=== PATIENT | female | born 1960 | race Caucasian/White ===

== ENCOUNTER 2020-05-12 14:57 | Inpatient (IN) | payer MEDICAID ==
[~2020-05-12] VITALS: Ht 172.7 cm; Wt 110.3 kg
[2020-05-12] MEDS ORDERED: FURO40TA4 PO (15:39)
[2020-05-12] MEDS ORDERED: LEVO200T PO (15:39)
[2020-05-12] MEDS ORDERED: BUDE10.2 IH (15:39)
[2020-05-12] MEDS ORDERED: HYDR-4196 PO (15:39)
[2020-05-12] MEDS ORDERED: INSU100V31 IJ (15:39)
[2020-05-12] MEDS ORDERED: OMG1KC PO (15:39)
[2020-05-12] MEDS ORDERED: POTA-53 PO (15:39)
[2020-05-12] MEDS ORDERED: DIAZ10TA3 PO (15:39)
[2020-05-12] MEDS ORDERED: ASPI-1238 PO (15:39)
[2020-05-12] MEDS ORDERED: LIDO700A45 TP (15:39)
[2020-05-12] MEDS ORDERED: LEVE500T99 PO (15:39)
[2020-05-12] MEDS ORDERED: LOSA100T57 PO (15:39)
[2020-05-12] MEDS ORDERED: INSU100V6 SQ (15:39)
[2020-05-12] MEDS ORDERED: NALO4SPR NS (15:39)
[2020-05-12] MEDS ORDERED: OMEP40CA27 PO (15:39)
[2020-05-12] MEDS ORDERED: DULA1.5P2 SQ (15:39)
[2020-05-12] MEDS ORDERED: PREG200C PO (15:39)
[2020-05-12] MEDS ORDERED: ATOR40TA70 PO (15:39)
[2020-05-12] MEDS ORDERED: CARI350T PO (15:39)
[2020-05-12] MEDS ORDERED: POLY17PO6 PO (15:39)
[2020-05-12] MEDS ORDERED: IPRA3AMP31 IH (15:39)
[2020-05-12] MEDS ORDERED: MONT10TA26 PO (15:39)
[2020-05-12] MEDS ORDERED: SENN17.24 PO (15:39)
[2020-05-12] MEDS ORDERED: LACT1CAP39 PO (15:39)
[2020-05-12] MEDS ORDERED: CALC1TAB PO (15:39)
[2020-05-12] MEDS ORDERED: ENOX30DI4 SQ (15:39)
[2020-05-12] MEDS ORDERED: DOCU100C37 PO (15:39)
[2020-05-12] MEDS ORDERED: RT-ALBUINH INH (15:39)
--- NOTE | 2020-05-12 15:43 | NUR ---
I ENTERED THE MED REC USING THE DISCHARGE ORDERS FROM [facility]- AFTER MEDICATIONS ARE CONTINUED I WILL SPEAK WITH THE PT AND MAKE ANY CHANGES TO THE MED REC/NOTES IF NEEDED Addendum: 05/25/20 at 1312 by KELLE FLOWERS [facility] I WAS ABLE TO SPEAK WITH THE PT TODAY AND WENT THRU THE EXT MED HISTORY TO COMPLETE THE MED REC I HAVE ALSO PUT A CALL IN TO DR. DASH IN [place] TO CLARIFY HER BP MEDS- PT SAID SHORTLY BEFORE BEING ADMITTED TO [facility] HER BP MEDS HAD BEEN CHANGED AROUND BUT SHE IS NOT SURE WHICH IS THE CURRENT ORDER. AFTER I HEAR FROM ERIC OFFICE I WILL UPDATE THE BP MEDS IF NEEDED *MEDICATIONS THAT HAVE BEEN REMOVED DUE TO PT NOT TAKING PRIOR TO [facility]: DOCUSATE 100MF ENOXAPARIN 30MG CULTURELLE KEPPRA 500MG LIDOCAINE 5% PATCH POTASSIUM 20MEQ SENNA S LANTUS HUMULIN R PT SAID SHE DID NOT USE ANY INHALERS OR BREATHING TREATMENTS PRIOR TO HER HOSPITALIZATION THEREFORE I HAVE REMOVED ALBUTEROL HFA, SYMBICORT AND DUONEB. AT [address] [place] [address] PHARMACY SHE HAD FILLED ANORO 62.5/25MCG ON 04-28-2020 #1 HOWEVER PT SAYS SHE DOES NOT USE IT AND THEREFORE I WILL NOT INCLUDE IT ON THE MED REC MEDICATIONS THAT HAVE BEEN ADDED TO THE MED REC DUE TO PT TAKING PRIOR TO [facility] BUT WERE DISCONTINUED AT DISCHARGE: METFORMIN ER 500MG THE FOLLOWING MEDICATIONS ARE LISTED UNDER THE "STOP MEDICATIONS" BUT PT DOESNT TAKE THEM (I DID NOT ADD THEM TO THE MED REC BUT DID WANT A RECORD SHOWING THEM): XANAX 1MG ESTRACE CREAM FLUOXETINE 40MG (PT HAS FILLED BUPROPION SR 150MG ON 03-31-2020 #30 HOWEVER PT SAID SHE IS NOT TAKING EITHER OF THESE) LORATADINE THE FOLLOWING MEDICATIONS HAVE BEEN ADDED TO THE MED REC DUE TO PT TAKING PRIOR TO [facility] BUT THEY ARE NOT LISTED ON THE DISCHARGE ORDER TO EITHER CONTINUE OR STOP: AMBIEN 5MG DICLOFENAC 75MG FLONASE HITESH 180MG Addendum: 05/27/20 at 1442 by KELLE FLOWERS [employer] I RECEIVED A CALL BACK FROM THE PCP'S OFFICE AND WAS TOLD PRIOR TO HER [facility] HOSPITALIZATION HER MOST CURRENT BLOOD PRESSURE MED WAS AMLODIPINE 10MG
[2020-05-12] MEDS ORDERED: DOCUSATE SODIUM 100 MG (COLACE) CAP PO PRN (16:30)
[2020-05-12] MEDS ORDERED: guaiFENesin/CODEINE (ROBITUSSIN AC) 10ML UDC PO PRN (16:30)
[2020-05-12] MEDS ORDERED: diphenhydrAMINE 25 MG TAB (BENADRYL) PO PRN (16:30)
[2020-05-12] MEDS ORDERED: FLEET ENEMA ADULT 1 EA BTL PR PRN (16:30)
[2020-05-12] MEDS ORDERED: ALPRAZolam 0.25 MG (XANAX) TAB PO PRN (16:30)
[2020-05-12] MEDS ORDERED: CALCIUM CARBONATE 500 MG (TUMS) TAB.CHEW PO PRN (16:30)
[2020-05-12] MEDS ORDERED: LOPERAMIDE 2 MG (IMODIUM) TABLET PO PRN (16:30)
[2020-05-12] MEDS ORDERED: NON-FORMULARY MEDICATION 1 EA EA (Naloxone HCl (Narcan) 1 SPRAY) NS PRN (17:00)
[2020-05-12] MEDS ORDERED: RT-ALBUTEROL/IPRATROPIUM 3 ML (DUONEB) VIAL IH PRN (17:00)
[2020-05-12] MEDS ORDERED: NON-FORMULARY MEDICATION 1 EA EA (Diazepam 10 MG) PO PRN (17:00)
[2020-05-12] MEDS ORDERED: RT-ALBUTEROL SULF 2.5 MG/3 ML PRE-MIX VIAL INH PRN (17:00)
[2020-05-12] MEDS ORDERED: NON-FORMULARY MEDICATION 1 EA EA (Dulaglutide (Trulicity) 1.5 MG) SQ SCH (17:00)
[2020-05-12] MEDS ORDERED: FUROSEMIDE 40 MG (LASIX) TAB PO PRN (17:00)
[2020-05-12] MEDS ORDERED: POTASSIUM CHLORIDE 40 MEQ PO PRN (17:00)
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
[2020-05-12] MEDS ORDERED: KCL 20 MEQ TAB (K-DUR) PO PRN (19:15)
[2020-05-12 19:39] VITALS: BP 101/57
[2020-05-12] MEDS ORDERED: SENNA W/DOCUSATE (SENOKOT S) TABLET PO NR (20:00)
[2020-05-12] MEDS ORDERED: LACTULOSE SYRUP 10GM/15ML (ENULOSE) 30ML UDC PO NR (20:00)
[2020-05-12] MEDS: ONDANSETRON 4 MG (ZOFRAN) ORAL DISSOLVE TAB PO PRN (20:05)
[2020-05-12] MEDS: ENOXAPARIN 30 MG/0.3 ML (LOVENOX) SYR SQ SCH (20:52)
[2020-05-12] MEDS: MELATONIN 3 MG TABLET PO PRN (20:53)
[2020-05-12] MEDS: HYDROcodone/APAP 10 MG/325 MG (LORTAB) TAB PO PRN (20:53)
[2020-05-12] MEDS: PREGABALIN 100 MG (LYRICA) CAPSULE PO SCH (20:54)
[2020-05-12] MEDS: MONTELUKAST 10 MG (SINGULAIR) TAB PO SCH (20:54)
[2020-05-12] MEDS: LACTOBACILLUS ACIDOPHILUS (PROBIOTIC) CAPSULE PO SCH (20:54)
[2020-05-12] MEDS: LEVETIRACETAM 500 MG (KEPPRA) TAB PO SCH (20:54)
[2020-05-12] MEDS: LIDOCAINE PATCH REMOVAL TP SCH (20:55)
[2020-05-12] MEDS ORDERED: NON-FORMULARY MEDICATION 1 EA EA (Budesonide/Formoterol Fumarate (Symbicort 160-4.5 Mcg In IH SCH (21:00)
[2020-05-12] MEDS ORDERED: SENNOSIDES 17.2 MG PO SCH (21:00)
[2020-05-12] MEDS ORDERED: NON-FORMULARY MEDICATION 1 EA EA (Lactobacillus Rhamnosus GG (Culturelle) 1 EACH) PO SCH (21:00)
[2020-05-12] MEDS ORDERED: SENNA W/DOCUSATE (SENOKOT S) TABLET PO SCH (21:00)
[2020-05-12] MEDS ORDERED: NON-FORMULARY MEDICATION 1 EA EA (Pregabalin (Lyrica) 200 MG) PO SCH (21:00)
[2020-05-12] MEDS ORDERED: NON-FORMULARY MEDICATION 1 EA EA (Insulin Glargine,Hum.rec.anlog (Lantus) 20 UNIT) SQ SCH (21:00)
[2020-05-12] MEDS ORDERED: polyethylene glycoL POWDER 17 GM (MIRALAX) PACK PO SCH (21:00)
[2020-05-12] MEDS: SENNOSIDES 8.6 MG (SENOKOT) TAB PO SCH (21:02)
[2020-05-12] MEDS: DOCUSATE SODIUM 100 MG (COLACE) CAP PO SCH (21:02)
[2020-05-12] MEDS: inSUlin ASPART (NovoLOG) 1 UNIT/0.01 ML (CHARGE PER UNIT) SC SCH (21:02)
[2020-05-12 21:44] VITALS: BP 101/57
[2020-05-12] MEDS: ADVAIR HFA 115/21 MCG INHALER 8 GM IH SCH (21:45)
[2020-05-13] MEDS: LEVOTHYROXINE 100 MCG (LEVOTHROID) TAB PO SCH (04:55)
[2020-05-13] MEDS: HYDROcodone/APAP 10 MG/325 MG (LORTAB) TAB PO PRN ×5 (04:55→22:05)
[2020-05-13 05:09] LABS: BASOPHILS % (AUTO) 1 % (0-10); EOSINOPHILS # (AUTO) 0.3 10^3/uL (0.0-0.3); EOSINOPHILS % (AUTO) 4 % (0-10); HEMATOCRIT 27 % (35-52); HEMOGLOBIN 8.2 G/DL (11.5-16.0); LYMPHOCYTES # (AUTO) 2.5 X 10^3 (1.0-4.0); LYMPHOCYTES % (AUTO) 30 % (12-44); MEAN CORPUSCULAR HEMOGLOBIN 29 PG (25-34); MEAN CORPUSCULAR HGB CONC 31 G/DL (32-36); MEAN CORPUSCULAR VOLUME 95 FL (80-99); MONOCYTES # (AUTO) 0.7 X 10^3 (0.0-1.0); MONOCYTES % (AUTO) 9 % (0-12); NEUTROPHILS # (AUTO) 4.5 X 10^3 (1.8-7.8); NEUTROPHILS % (AUTO) 56 % (42-75); PLATELET COUNT 191 10^3/uL (130-400); WHITE BLOOD COUNT 8.1 10^3/uL (4.3-11.0)
[2020-05-13 05:32] LABS: ALANINE AMINOTRANSFERASE 42 U/L (0-55); ALBUMIN 2.9 GM/DL (3.2-4.5); ALKALINE PHOSPHATASE 91 U/L (40-136); BILIRUBIN,TOTAL 1.1 MG/DL (0.1-1.0); BUN/CREATININE RATIO 16; CALCIUM 8.7 MG/DL (8.5-10.1); CARBON DIOXIDE 32 MMOL/L (21-32); CHLORIDE 100 MMOL/L (98-107); CREATININE SERUM 0.79 MG/DL (0.60-1.30); GFR ESTIMATED > 60; GLUCOSE 156 MG/DL (70-105); SODIUM 139 MMOL/L (135-145); TOTAL PROTEIN 5.7 GM/DL (6.4-8.2)
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
[2020-05-13 06:20] VITALS: BP 101/55
[2020-05-13] MEDS: ADVAIR HFA 115/21 MCG INHALER 8 GM IH SCH ×2 (07:22→22:45)
[2020-05-13] MEDS: inSUlin ASPART (NovoLOG) 1 UNIT/0.01 ML (CHARGE PER UNIT) SC SCH ×4 (07:24→22:16)
[2020-05-13 08:00] VITALS: BP 113/54
[2020-05-13] MEDS: OMEGA 3 (FISH OIL) 1000 MG CAP PO SCH (08:11)
[2020-05-13] MEDS: LEVETIRACETAM 500 MG (KEPPRA) TAB PO SCH ×2 (08:12→22:04)
[2020-05-13] MEDS: PANTOPRAZOLE 40 MG (PROTONIX) TAB PO SCH (08:12)
[2020-05-13] MEDS: polyethylene glycoL POWDER 17 GM (MIRALAX) PACK PO SCH (08:12)
[2020-05-13] MEDS: LACTOBACILLUS ACIDOPHILUS (PROBIOTIC) CAPSULE PO SCH ×2 (08:12→22:04)
[2020-05-13] MEDS: ENOXAPARIN 30 MG/0.3 ML (LOVENOX) SYR SQ SCH ×2 (08:12→22:04)
[2020-05-13] MEDS: LOSARTAN 100 MG (COZAAR) TABLET PO SCH (08:13)
[2020-05-13] MEDS: CALCIUM CARB + VIT D 600 MG (CALCARB + D) TAB PO SCH (08:13)
[2020-05-13] MEDS: ASPIRIN E.C. 81 MG (ECOTRIN) TAB PO SCH (08:13)
[2020-05-13] MEDS: LIDOCAINE 4% (SALONPAS) PATCH TP SCH (08:14)
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
[2020-05-13] MEDS: PREGABALIN 100 MG (LYRICA) CAPSULE PO SCH ×2 (08:59→22:04)
[2020-05-13] MEDS: DOCUSATE SODIUM 100 MG (COLACE) CAP PO SCH ×2 (08:59→23:21)
[2020-05-13] MEDS ORDERED: NON-FORMULARY MEDICATION 1 EA EA (Omeprazole 40 MG) PO SCH (09:00)
[2020-05-13] MEDS ORDERED: NON-FORMULARY MEDICATION 1 EA EA (Levothyroxine Sodium (Synthroid) 200 MCG) PO SCH (09:00)
[2020-05-13] MEDS ORDERED: NON-FORMULARY MEDICATION 1 EA EA (Calcium Carbonate/Vitamin D3 (Caltrate 600 + D Tablet) 1 PO SCH (09:00)
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
[2020-05-13] MEDS: LACTULOSE SYRUP 10GM/15ML (ENULOSE) 30ML UDC PO PRN (10:26)
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
[2020-05-13] MEDS: ONDANSETRON 4 MG (ZOFRAN) ORAL DISSOLVE TAB PO PRN ×2 (14:38→20:49)
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
--- NOTE | 2020-05-13 15:19 | Physical Therapy Daily Note ---
PT Daily Note-Current Subjective Pt presents supine in bed. Pt agrees to PT. Pt is fearful of pain with movement, but ensures she is going to get up anyway because she understands it will help. Pt reports feeling nauseous, nurse gives nausea pain with tx. Appearance After PT tx pt is returned to bed. Pt has access to call button and tray, all needs have been met, and pt's daughter is in the room. Mental Status Patient Orientation: Normal For Age Attachments: Oxygen Transfers SCALE: Activities may be completed with or without assistive devices. 2-Qqulnrzadz-ctcliso completes the activity by him/herself with no assistance from a helper. 5-Set-up or Clean-up Assistance-helper sets up or cleans up; patient completes activity. [place] assists only prior to or following the activity. 4-Supervision or Touching Assistance-helper provides verbal cues and/or touching/steadying and/or contact guard assistance as patient completes activity. Assistance may be provided throughout the activity or intermittently. 3-Partial/Moderate Assistance-helper does LESS THAN HALF the effort. [place] lifts, holds or supports trunk or limbs, but provides less than half the effort. 2-Substantial/Maximal Assistance-helper does MORE THAN HALF the effort. [place] lifts or holds trunk or limbs and provides more than half the effort. 1-Bkpozmbhz-oxclod does ALL the effort. Patient does none of the effort to complete the activity. Or, the assistance of 2 or more helpers is required for the patient to complete the activity. If activity was not attempted, code reason: 7-Patient Refused. 9-Not Applicable-not attempted and the patient did not perform the activity before the current illness, exacerbation or injury. 10-Not Attempted due to Environmental Limitations-(lack of equipment, weather restraints, etc.). 88-Not Attempted due to Medical Conditions or Safety Concerns. Sit to Lying (QC): 3 Lying to Sitting/Side of Bed(Q: 3 Sit to Stand (QC): 3 Chair/Xvf-pq-Ddivs Xfer(QC): 3 Toilet Transfer (QC): 3 Weight Bearing Right Lower Extremity: Right Non Weight Bearing Wheelchair Training Does the Pt Use a Wheelchair?: Yes Wheel 50 ft with 2 turns (QC): 4 100'x2 R foot rest for NWB precautions; Instructed to only use digits 1-3 to push on L hand to follow precautions. Pt required repetitive instructions on how to turn in wheelchair Exercises Standing: Unilateral stance (Practiced standing in parallel bars following R NWB precautions for 2-3min) Treatments Transfers, w/c mobility, standing Assessment Current Status: Fair Progress Pt able to pivot-transfer with mod-assist to bedside commode and to wheelchair. Pt is able to hold standing position while following R NWB precautions but requires UE support and therefore was not able to don/doff briefs. PT Short Term Goals Short Term Goals Time Frame: May 20, 2020 Roll Left & Right: 3 Sit to lyin Lying to sitting on side of be: 3 Sit to stand: 3 Chair/erm-ob-jikmq transfer: 3 PT Orchid Transplanter Goals Orchid Transplanter Goals PT Orchid Transplanter Goals Time Frame: Jun 03, 2020 Roll Left & Right (QC): 4 Sit to Lying (QC): 4 Lying-Sitting on Side/Bed(QC): 4 Sit to Stand (QC): 4 Chair/Iez-an-Otjlw Xfer(QC): 4 Toilet Transfer (QC): 4 Car Transfer (QC): 3 Does the Patient Walk: No and Walking Goal IS indicated Walk 10 feet (QC): 3 Walk 50ft with 2 Turns (QC): 3 Walk 150 ft (QC): 88 Walking 10ft on Uneven Surface: 3 1 Step (curb) (QC): 3 4 Steps (QC): 88 12 Steps (QC): 88 Picking up an Object (QC): 88 Wheel 50 feet with 2 turns (QC: 6 Wheel 150 feet: 6 PT Plan Problem List Problem List: Activity Tolerance, Functional Strength, Safety, Balance, Gait, Transfer, Bed Mobility, ROM Treatment/Plan Treatment Plan: Continue Plan of Care Treatment Plan: Bed Mobility, Education, Functional Activity Jameel, Functional Strength, Group Therapy, Gait, Safety, Therapeutic Exercise, Transfers Treatment Duration: Jun 03, 2020 Frequency: Modified Program (IRF) (24/03) Estimated Hrs Per Day: 1.5 hours per day Patient and/or Family Agrees t: Yes Safety Risks/Education Patient Education: Transfer Techniques, Reviewed Precautions, Correct Positioning, W/C Management, Safety Issues Teaching Recipient: Patient Teaching Methods: Demonstration, Discussion Response to Teaching: Reinforcement Needed Time/GCodes Time In: 1400 Time Out: 1500 Total Billed Treatment Time: 60 Total Billed Treatment 1 visit FA 60ARYA KAN PT May 13, 2020 15:19
[2020-05-13 16:00] VITALS: BP 110/53
[2020-05-13] MEDS: BISACODYL 10 MG SUPP (DULCOLAX) PR PRN (16:55)
[2020-05-13] MEDS: MONTELUKAST 10 MG (SINGULAIR) TAB PO SCH (22:05)
[2020-05-13] MEDS: MELATONIN 3 MG TABLET PO PRN (22:05)
[2020-05-13] MEDS: LIDOCAINE PATCH REMOVAL TP SCH (22:06)
[2020-05-13] MEDS: SENNOSIDES 8.6 MG (SENOKOT) TAB PO SCH (23:21)
[2020-05-14] MEDS: HYDROcodone/APAP 10 MG/325 MG (LORTAB) TAB PO PRN ×5 (05:29→22:38)
[2020-05-14] MEDS: LEVOTHYROXINE 100 MCG (LEVOTHROID) TAB PO SCH (05:29)
[2020-05-14] MEDS: inSUlin ASPART (NovoLOG) 1 UNIT/0.01 ML (CHARGE PER UNIT) SC SCH ×4 (06:37→20:31)
[2020-05-14 06:41] VITALS: BP 133/61
[2020-05-14] MEDS: ADVAIR HFA 115/21 MCG INHALER 8 GM IH SCH ×2 (06:45→19:17)
[2020-05-14] MEDS: CALCIUM CARB + VIT D 600 MG (CALCARB + D) TAB PO SCH (08:21)
[2020-05-14] MEDS: LEVETIRACETAM 500 MG (KEPPRA) TAB PO SCH ×2 (08:21→20:25)
[2020-05-14] MEDS: ASPIRIN E.C. 81 MG (ECOTRIN) TAB PO SCH (08:21)
[2020-05-14] MEDS: PREGABALIN 100 MG (LYRICA) CAPSULE PO SCH ×2 (08:21→20:26)
[2020-05-14] MEDS: PANTOPRAZOLE 40 MG (PROTONIX) TAB PO SCH (08:21)
[2020-05-14] MEDS: LACTOBACILLUS ACIDOPHILUS (PROBIOTIC) CAPSULE PO SCH ×2 (08:21→20:25)
[2020-05-14] MEDS: OMEGA 3 (FISH OIL) 1000 MG CAP PO SCH (08:21)
[2020-05-14] MEDS: DOCUSATE SODIUM 100 MG (COLACE) CAP PO SCH ×2 (08:22→20:25)
[2020-05-14] MEDS: LOSARTAN 100 MG (COZAAR) TABLET PO SCH (08:22)
[2020-05-14] MEDS: LIDOCAINE 4% (SALONPAS) PATCH TP SCH (08:22)
[2020-05-14] MEDS: polyethylene glycoL POWDER 17 GM (MIRALAX) PACK PO SCH (08:22)
[2020-05-14] MEDS: ENOXAPARIN 30 MG/0.3 ML (LOVENOX) SYR SQ SCH ×2 (08:22→20:25)
[2020-05-14 08:36] VITALS: BP 109/53
[2020-05-14] MEDS: ONDANSETRON 4 MG (ZOFRAN) ORAL DISSOLVE TAB PO PRN (09:14)
--- NOTE | 2020-05-14 09:24 | Occupational Ther Daily Note ---
OT Current Status-Daily Note Subjective Pt reports 8-9/10 pain in abdomen/chest area, and a burning sensation in R hip. Pt agreeable to therapy. Pain Numeric Pain Scale: 9 Location Body Site: Chest Pain Description: Burning (at hip) ADL-Treatment Therapy Code Descriptions/Definitions Functional [place] Measure: 0=Not Assessed/NA 4=Minimal Assistance 1=Total Assistance 5=Supervision or Setup 2=Maximal Assistance 6=Modified [place] 3=Moderate Assistance 7=Complete IndependenceSCALE: Activities may be completed with or without assistive devices. 0-Cecvylgmkr-fibsore completes the activity by him/herself with no assistance from a helper. 5-Set-up or Clean-up Assistance-helper sets up or cleans up; patient completes activity. [place] assists only prior to or following the activity. 4-Supervision or Touching Assistance-helper provides verbal cues and/or touching/steadying and/or contact guard assistance as patient completes activity. Assistance may be provided throughout the activity or intermittently. 3-Partial/Moderate Assistance-helper does LESS THAN HALF the effort. [place] lifts, holds or supports trunk or limbs, but provides less than half the effort. 2-Substantial/Maximal Assistance-helper does MORE THAN HALF the effort. [place] lifts or holds trunk or limbs and provides more than half the effort. 6-Saocrlryy-pzzxpi does ALL the effort. Patient does none of the effort to complete the activity. Or, the assistance of 2 or more helpers is required for the patient to complete the activity. If activity was not attempted, code reason: 7-Patient Refused. 9-Not Applicable-not attempted and the patient did not perform the activity before the current illness, exacerbation or injury. 10-Not Attempted due to Environmental Limitations-(lack of equipment, weather restraints, etc.). 88-Not Attempted due to Medical Conditions or Safety Concerns. Lower Body Dressing (QC): 1 (Total assist with task, pt required assistance threading RLE, pt able to thread LLE as OT held pants open, then max A for rolling side to side to manage pants up) Toileting Hygiene (QC): 1 (total assist, pt required assist x2 managing pants up/down and hygiene.) Other Treatment OT/PT cotreat due to poor patient mobility, strength, endurance, balance, the need to coordinate UE and LE during activity, pain. OT focused on UE placement, ADLs, cues for sequencing and safety, and assistance with balance while PT focused on LE placement, overall gross movements, bed mobility, standing trials. Pt laying in bed, donned pants at bed level. Pt attemted to bridge through LLE but unable to lift buttocks from bed. Pt then rolled side to side with max A to manage pants over hips. Pt then educated on slide board, transferring from bed to w/c towards the right side. Pt had difficulty putting weight through LLE only, stating she wants to use the right leg instead. Pt required mod-max A with SB transfer. Pt then taken to therapy gym, standing at parallel bars x2 trials, ~3 mins each trial with a rest break between. Pt required mod cues in order to use RUE to pull and to only put weight into LLE for standing. Pt then returned to her room. Pt requested to use the toilet. OT/PT assisted pt with standing at platform walker, once pt steady, w/c swapped for BSC, and assistance with managing clothing. Pt completed toileting, then stood at platform walker as OT managed pants up with PT assisting for balance. Pt states she is unable to use FWW to hop towards the bed, BSC swapped for w/c, pt sat at w/c then used slide board to transfer back to bed towards R side, max A. Pt transferred sit to supine, with assistance BLEs. Pt reports some nausea, pt provided basin and nurse notified. Post OT/PT cotreat, pt laying in bed, call light in reach and all needs met. Education OT Patient Education: Correct positioning, Energy conservation, Modified ADL techniques, Progress toward Goal/Update tx plan, Purpose of tx/functional activities, Reviewed precautions, Safety issues, Transfer techniques Teaching Recipient: Patient Teaching Methods: Discussion Response to Teaching: Verbalize Understanding, Reinforcement Needed OT Short Term Goals Short Term Goals Time Frame: May 24, 2020 Shower/bathe self: 3 Lower body dressin Putting on/taking off footwear: 3 OT News Librarian Goals Group Home Goals Time Frame: Jun 03, 2020 Eating (QC): 6 Oral Hygiene (QC): 6 Toileting Hygiene (QC): 6 Shower/Bathe Self (QC): 6 Upper Body Dressing (QC): 6 Lower Body Dressing (QC): 6 On/Off Footwear (QC): 6 Additional Goals: 1-Demonstrate ADL Tasks, 2-Verbalize Understanding, 3- ImproveStrength/Jameel 1=Demonstrate adherence to instructed precautions during ADL tasks. 2=Patient will verbalize/demonstrate understanding of assistive devices/modifications for ADL. 3=Patient will improve strength/tolerance for activity to enable patient to perform ADL's. OT Education/Plan Problem List/Assessment Assessment: Decreased Activ Tolerance, Decreased UE Strength, Impaired Bed Mobi lity, Impaired Funct Balance, Impaired I ADL's, Impaired Self-Care Skills Discharge Recommendations Plan/Recommendations: Continue POC Treatment Plan/Plan of Care Patient would benefit from OT for education, treatment and training to promote independence in ADL's, mobility, safety and/or upper extremity function for ADL's. Plan of Care: ADL Retraining, Functional Mobility, Group Exercise/Act as Ind, UE Funct Exercise/Act, W/C Management Training Treatment Duration: Jun 03, 2020 Frequency: Modified Program (IRF) (24/03) Estimated Hrs Per Day: 1.5 hours per day Rehab Potential: Fair Time/GCodes Start Time: 08:15 Stop Time: 09:15 Total Time Billed (hr/min): 60 Billed Treatment Time 1, FA 4 JUAN JOSE BREWSTER OT May 14, 2020 09:23
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
--- NOTE | 2020-05-14 12:57 | Physical Therapy Daily Note ---
PT Daily Note-Current Subjective Pt agreeable. Pt c/o pain throughout trunk, (R) hip "burning", (L) hand and (R) foot. Pain rated 8-9/10. Mental Status Patient Orientation: Person, Place, Situation Transfers SCALE: Activities may be completed with or without assistive devices. 2-Ujbvraldcm-bhdtpgc completes the activity by him/herself with no assistance from a helper. 5-Set-up or Clean-up Assistance-helper sets up or cleans up; patient completes activity. [place] assists only prior to or following the activity. 4-Supervision or Touching Assistance-helper provides verbal cues and/or touching/steadying and/or contact guard assistance as patient completes activity. Assistance may be provided throughout the activity or intermittently. 3-Partial/Moderate Assistance-helper does LESS THAN HALF the effort. [place] lifts, holds or supports trunk or limbs, but provides less than half the effort. 2-Substantial/Maximal Assistance-helper does MORE THAN HALF the effort. [place] lifts or holds trunk or limbs and provides more than half the effort. 6-Ibdkdjcra-wfhilb does ALL the effort. Patient does none of the effort to complete the activity. Or, the assistance of 2 or more helpers is required for the patient to complete the activity. If activity was not attempted, code reason: 7-Patient Refused. 9-Not Applicable-not attempted and the patient did not perform the activity before the current illness, exacerbation or injury. 10-Not Attempted due to Environmental Limitations-(lack of equipment, weather restraints, etc.). 88-Not Attempted due to Medical Conditions or Safety Concerns. Weight Bearing Right Lower Extremity: Right Non Weight Bearing Treatments OT/PT cotreat due to poor patient mobility, strength, endurance, balance, the n eed to coordinate UE and LE during activity, pain. OT focused on UE placement, ADLs, cues for sequencing and safety, and assistance with balance while PT focused on LE placement, overall gross movements, bed mobility, standing trials. Pt laying in bed, donned pants at bed level. Pt attemted to bridge through LLE but unable to lift buttocks from bed. Pt then rolled side to side with max A to manage pants over hips. Pt then educated on slide board, transferring from bed to w/c towards the right side. Pt had difficulty putting weight through LLE only, stating she wants to use the right leg instead. Pt required mod-max A with SB transfer. O2 per nasal canula 2L/min. Pt then taken to therapy gym Via w/c, standing at parallel bars x2 trials, ~3 mins each trial with a rest break between. Pt required mod cues in order to use RUE to pull and to only put weight into LLE for standing. Pt then returned to her room. Pt requested to use the toilet. OT/PT assisted pt with standing at platform walker, once pt steady, w/c swapped for BSC, and assistance with managing clothing. Pt completed toileting, then stood at platform walker as OT managed pants up with PT assisting for balance. Pt states she is unable to use FWW to hop towards the bed, BSC swapped for w/c, pt sat at w/c then used slide board to transfer back to bed towards R side, max A. Pt transferred sit to supine, with assistance BLEs. Pt reports some nausea, pt provided basin and nurse notified. Post OT/PT cotreat, pt laying in bed, call light in reach and all needs met. Assessment Current Status: Fair Progress Pt is dependent for bed mobility, transfers and w/c mobility. Pt was able to maintain NWB (R) LE with mod-max vc's. Pt was able to perform approximately 30% of the slideboard transfer. Pt participation limited by pain and weakness. Pt would benefit from continued slide board training and strength training to improve functional mobility. PT Short Term Goals Short Term Goals Time Frame: May 20, 2020 Roll Left & Right: 3 Sit to lyin Lying to sitting on side of be: 3 Sit to stand: 3 Chair/kgt-ve-mrjfq transfer: 3 PT Soaker Soda Worker Goals Residential Goals PT Soaker Soda Worker Goals Time Frame: Jun 03, 2020 Roll Left & Right (QC): 4 Sit to Lying (QC): 4 Lying-Sitting on Side/Bed(QC): 4 Sit to Stand (QC): 4 Chair/Bzz-ru-Hwihg Xfer(QC): 4 Toilet Transfer (QC): 4 Car Transfer (QC): 3 Does the Patient Walk: No and Walking Goal IS indicated Walk 10 feet (QC): 3 Walk 50ft with 2 Turns (QC): 3 Walk 150 ft (QC): 88 Walking 10ft on Uneven Surface: 3 1 Step (curb) (QC): 3 4 Steps (QC): 88 12 Steps (QC): 88 Picking up an Object (QC): 88 Wheel 50 feet with 2 turns (QC: 6 Wheel 150 feet: 6 PT Plan Treatment/Plan Treatment Plan: Continue Plan of Care Treatment Plan: Bed Mobility, Education, Functional Activity Jameel, Functional Strength, Group Therapy, Gait, Safety, Therapeutic Exercise, Transfers Treatment Duration: Jun 03, 2020 Frequency: Modified Program (IRF) (24/03) Estimated Hrs Per Day: 1.5 hours per day Patient and/or Family Agrees t: Yes Time/GCodes Time In: 815 Time Out: 915 Total Billed Treatment Time: 60 Total Billed Treatment Co-treat with OT x 60 min, 1 FA x 45', Gait x 15' JUSTINE ZHU CPTAruna May 14, 2020 12:56
--- NOTE | 2020-05-14 14:11 | Speech Therapy Daily Note ---
Speech Daily Progress Note Subjective Date Seen by Provider: May 14, 2020 Time Seen by Provider: 00:30 Patient was resting in her bed. She states she slept pretty well last night. Objective Patient completed a series of questions related to her daily routine and needs upon her return home. Assessment Assessment Current Status: Good Progress Treatment Plan Continue Plan of Care Speech Short Term Goals Short Term Goals Short Term Goals 1) Patient will complete memory tasks related to her daily needs at 90% or greater with minimal cues. 2) Patient will complete problem solving tasks related to her daily needs at 90% or greater with minimal cues. 3) Patient will complete safety awareness tasks related to her daily needs at 90% or greater with minimal cues. Speech Peer Support Specialist Goals Alf Goals Patient will improve her cognitive functional level for meeting her daily needs with minimal assist. Speech-Plan Patient/Family Goals Patient/Family Goals: Patient plans on returning home upon discharge with support help. Treatment Plan Speech Therapy Treatment Plan: Continue Plan of Care Treatment Duration: May 28, 2020 Frequency: 4 times per week (Patient will receive skilled ST 4-5x per week) Estimated Hrs Per Day: .5 hour per day Rehab Potential: Fair Barriers to Learning: Patient's recent medical status Pt/Family Agrees to Plan: Yes Safety Risks/Education Teaching Recipient: Patient Teaching Methods: Demonstration, Discussion Response to Teaching: Verbalize Understanding, Return Demonstration Education Topics Provided: Continued safety within her room and communication of wants/needs Time Speech Therapy Time In: 09:30 Speech Therapy Time Out: 10:00 Total Billed Time: 30 Billed Treatment Time 1, SVETLANA Luis May 14, 2020 14:10
--- NOTE | 2020-05-14 15:08 | Therapy Group Daily Note ---
Therapy Daily Group Note Patient Education Topic Fall Prevention, Home Safety, Exercises Exercises LE Seated Exercise, UE Exercise Session Ratio (pt:therapist): 3:1 Goal of Session: Home Safety Strategies, UE/LE Strengthing Goal Met for this Session: Yes Pt Benefit of Group: Contributions to Others, F/U Use of Strategies @Home, Increased Functional Strength, Improved Cognition, Recognition of Peers, Socialization Other/Notes Pt was transported via w/c to OT group. Group consisted of introductions (name, place living, fall activity), socialization, seated UE/LE exercises, educational topics on exercising throughout the year and hydration. Pt introduced self appropriately and actively listened to peers. Pt contributed to peer conversations appropriately. Demonstrated understanding of educational topics by answering questions while participating in group activity and giving own personal strategies. After session, pt lying in bed with call light/phone in reach. All needs met in room. Start Time: 13:00 Stop Time: 14:20 Total Billed Treatment Time: 80 Total Billed Treatment 1, GRP ZACHARY BUTCHER OTR May 14, 2020 15:08
[2020-05-14 16:00] VITALS: BP 102/53
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
--- NOTE | 2020-05-14 19:10 | NUR ---
bedside report received from RODNEY CHAIDEZ, assume care of pt
[2020-05-14] MEDS: MONTELUKAST 10 MG (SINGULAIR) TAB PO SCH (20:26)
[2020-05-14] MEDS: CARISOPRODOL 350 MG (SOMA) TAB PO PRN (20:27)
--- NOTE | 2020-05-14 20:27 | NUR ---
pt took Colace refused Senokot, c/o muscle spasms, soma 350mg given
[2020-05-14] MEDS: SENNOSIDES 8.6 MG (SENOKOT) TAB PO SCH (20:49)
[2020-05-14] MEDS: LIDOCAINE PATCH REMOVAL TP SCH (20:50)
--- NOTE | 2020-05-14 21:15 | NUR ---
states that pill helped rated pain at 6/10 on numeric scale
--- NOTE | 2020-05-14 22:38 | NUR ---
c/o pain all over pain level 8/10 on numeric scale, Lortab 10 1 tab given
--- NOTE | 2020-05-14 23:20 | NUR ---
resting quietly in bed pain level 0/10 on CNPI SCALE
[2020-05-15] MEDS: HYDROcodone/APAP 10 MG/325 MG (LORTAB) TAB PO PRN ×2 (02:25→06:44)
--- NOTE | 2020-05-15 02:25 | NUR ---
c/o generalized discomfort, pain level 8/10 on numeric scale, Lortab 10 1 tab given
--- NOTE | 2020-05-15 03:15 | NUR ---
resting quietly in bed, pain level 0/10 on CNPI SCALE
[2020-05-15 05:05] VITALS: BP 121/59
[2020-05-15] MEDS: LEVOTHYROXINE 100 MCG (LEVOTHROID) TAB PO SCH (06:37)
[2020-05-15] MEDS: inSUlin ASPART (NovoLOG) 1 UNIT/0.01 ML (CHARGE PER UNIT) SC SCH ×4 (06:41→20:32)
--- NOTE | 2020-05-15 06:44 | NUR ---
c/o generalized discomfort, pain level 8/10 on numeric scale, Lortab 10 1 tab given
[2020-05-15] MEDS: ADVAIR HFA 115/21 MCG INHALER 8 GM IH SCH ×2 (07:39→20:21)
[2020-05-15 08:39] VITALS: BP 102/56
[2020-05-15] MEDS: CALCIUM CARB + VIT D 600 MG (CALCARB + D) TAB PO SCH (08:44)
[2020-05-15] MEDS: ASPIRIN E.C. 81 MG (ECOTRIN) TAB PO SCH (08:44)
[2020-05-15] MEDS: CARISOPRODOL 350 MG (SOMA) TAB PO PRN ×3 (08:44→23:07)
[2020-05-15] MEDS: PREGABALIN 100 MG (LYRICA) CAPSULE PO SCH ×2 (08:44→20:12)
[2020-05-15] MEDS: LIDOCAINE 4% (SALONPAS) PATCH TP SCH (08:44)
[2020-05-15] MEDS: ENOXAPARIN 30 MG/0.3 ML (LOVENOX) SYR SQ SCH ×2 (08:44→20:13)
[2020-05-15] MEDS: OMEGA 3 (FISH OIL) 1000 MG CAP PO SCH (08:45)
[2020-05-15] MEDS: polyethylene glycoL POWDER 17 GM (MIRALAX) PACK PO SCH (08:45)
[2020-05-15] MEDS: LEVETIRACETAM 500 MG (KEPPRA) TAB PO SCH ×2 (08:45→20:12)
[2020-05-15] MEDS: LOSARTAN 100 MG (COZAAR) TABLET PO SCH (08:45)
[2020-05-15] MEDS: LACTOBACILLUS ACIDOPHILUS (PROBIOTIC) CAPSULE PO SCH ×2 (08:45→20:12)
[2020-05-15] MEDS: PANTOPRAZOLE 40 MG (PROTONIX) TAB PO SCH (08:45)
[2020-05-15] MEDS: DOCUSATE SODIUM 100 MG (COLACE) CAP PO SCH ×2 (08:45→20:13)
--- NOTE | 2020-05-15 10:51 | Physical Therapy Daily Note ---
PT Daily Note-Current Subjective Pt rates pain 8/10. Nursing notified. Pt reports she is sore throughout trunk and (R) hip "burning" pain. Pt reports she sat herself up at 2 am on the EOB. Pt noted decreased pain with PROM of the hip and light manual traction. Mental Status Patient Orientation: Person, Place, Situation Transfers SCALE: Activities may be completed with or without assistive devices. 3-Uujgxwfzwy-dojkwli completes the activity by him/herself with no assistance from a helper. 5-Set-up or Clean-up Assistance-helper sets up or cleans up; patient completes activity. [place] assists only prior to or following the activity. 4-Supervision or Touching Assistance-helper provides verbal cues and/or touching/steadying and/or contact guard assistance as patient completes ac tivity. Assistance may be provided throughout the activity or intermittently. 3-Partial/Moderate Assistance-helper does LESS THAN HALF the effort. [place] lifts, holds or supports trunk or limbs, but provides less than half the effort. 2-Substantial/Maximal Assistance-helper does MORE THAN HALF the effort. [place] lifts or holds trunk or limbs and provides more than half the effort. 1-Lbsxqlauh-xryyky does ALL the effort. Patient does none of the effort to complete the activity. Or, the assistance of 2 or more helpers is required for the patient to complete the activity. If activity was not attempted, code reason: 7-Patient Refused. 9-Not Applicable-not attempted and the patient did not perform the activity before the current illness, exacerbation or injury. 10-Not Attempted due to Environmental Limitations-(lack of equipment, weather restraints, etc.). 88-Not Attempted due to Medical Conditions or Safety Concerns. Weight Bearing Right Lower Extremity: Right Non Weight Bearing Treatments OT/PT cotreat due to poor patient mobility, strength, endurance, balance, the need to coordinate UE and LE during activity, pain. OT focused on UE placement, ADLs, cues for sequencing and safety, and assistance with balance while PT focused (R) hip PROM, light manual traction in hooklying (R) LE, LE placement, overall gross movements, bed mobility, standing trials. Pt practiced and educated on slide board, transferring from bed to w/c towards the right side. Pt had difficulty putting weight through LLE only, required vc's to avoid weight (R) LE. Pt required mod-max A with SB transfer. O2 per nasal canula 2L/min. Pt in w/c with MIKEL working on ADLs. Pt requested to go out to common area but then requested to return to room. OT/PT assisted pt with standing at platform walker, once pt steady, w/c swapped for BSC, and assistance with managing clothing. Post OT/PT cotreat, pt in w/c with all needs met, call light in reach. Assessment Current Status: Fair Progress Pt showed improved ability to transfer semi supine to EOB. Pt particpation limited by pain and decreased coordination between UE and (L) LE. Pt requires mod A of 2 persons to SB transfer. Pt resting with call light, O2 insitu and all needs met. PT Short Term Goals Short Term Goals Time Frame: May 20, 2020 Roll Left & Right: 3 Sit to lyin Lying to sitting on side of be: 3 Sit to stand: 3 Chair/dxm-hm-dccvi transfer: 3 PT Detention Goals [employer] Teacher Goals PT [employer] Teacher Goals Time Frame: Jun 03, 2020 Roll Left & Right (QC): 4 Sit to Lying (QC): 4 Lying-Sitting on Side/Bed(QC): 4 Sit to Stand (QC): 4 Chair/Dwg-tj-Ghiwr Xfer(QC): 4 Toilet Transfer (QC): 4 Car Transfer (QC): 3 Does the Patient Walk: No and Walking Goal IS indicated Walk 10 feet (QC): 3 Walk 50ft with 2 Turns (QC): 3 Walk 150 ft (QC): 88 Walking 10ft on Uneven Surface: 3 1 Step (curb) (QC): 3 4 Steps (QC): 88 12 Steps (QC): 88 Picking up an Object (QC): 88 Wheel 50 feet with 2 turns (QC: 6 Wheel 150 feet: 6 PT Plan Treatment/Plan Treatment Plan: Continue Plan of Care Treatment Plan: Bed Mobility, Education, Functional Activity Jameel, Functional Strength, Group Therapy, Gait, Safety, Therapeutic Exercise, Transfers Treatment Duration: Jun 03, 2020 Frequency: Modified Program (IRF) (24/03) Estimated Hrs Per Day: 1.5 hours per day Patient and/or Family Agrees t: Yes Time/GCodes Time In: 900 Time Out: 942 Total Billed Treatment Time: 42 Total Billed Treatment 1, Co-treat with OT 42min, ther ex 12', FA 30' JUSTINE ZHU May 15, 2020 10:51
--- NOTE | 2020-05-15 11:12 | Occupational Ther Daily Note ---
OT Current Status-Daily Note Subjective Pt alert, lying in bed. Pt agrees to therapy. C/o R hip pain, 04/19, PT completed stretching and ROM which pt stated helped decrease pain. Pain Numeric Pain Scale: 8 Location: Right Location Body Site: Hip Pain Description: Burning Mental Status/Objective Patient Orientation: Person, Place, Time, Situation ADL-Treatment Therapy Code Descriptions/Definitions Functional [place] Measure: 0=Not Assessed/NA 4=Minimal Assistance 1=Total Assistance 5=Supervision or Setup 2=Maximal Assistance 6=Modified [place] 3=Moderate Assistance 7=Complete IndependenceSCALE: Activities may be completed with or without assistive devices. 1-Czyrzhfbug-tddosrg completes the activity by him/herself with no assistance from a helper. 5-Set-up or Clean-up Assistance-helper sets up or cleans up; patient completes activity. [place] assists only prior to or following the activity. 4-Supervision or Touching Assistance-helper provides verbal cues and/or touching/steadying and/or contact guard assistance as patient completes activity. Assistance may be provided throughout the activity or intermittently. 3-Partial/Moderate Assistance-helper does LESS THAN HALF the effort. [place] lifts, holds or supports trunk or limbs, but provides less than half the effort. 2-Substantial/Maximal Assistance-helper does MORE THAN HALF the effort. [place] lifts or holds trunk or limbs and provides more than half the effort. 3-Bjxmpjcqt-ccruyt does ALL the effort. Patient does none of the effort to complete the activity. Or, the assistance of 2 or more helpers is required for the patient to complete the activity. If activity was not attempted, code reason: 7-Patient Refused. 9-Not Applicable-not attempted and the patient did not perform the activity before the current illness, exacerbation or injury. 10-Not Attempted due to Environmental Limitations-(lack of equipment, weather restraints, etc.). 88-Not Attempted due to Medical Conditions or Safety Concerns. Other Treatment OT/PT cotreat due to poor patient mobility, strength, endurance, balance, the need to coordinate UE and LE during activity, pain. OT focused on UE placement, ADLs, cues for sequencing and safety, and assistance with balance while PT focused on LE placement, overall gross movements, bed mobility, standing trials. Pt was able to demonstrate ability to roll toward R side and sit on EOB, initially bed is flat while pt is rolling then pt lifted HOB to come to sitting. Pt then required assist x2 for sliding board placement and using sliding board to transfer into w/c. Pt unable to adjust self in w/c after slide board transfer, max A x2 to stand then sit correctly positioned in w/c. Pt required assist to complete grooming sitting in w/c. After session, pt sitting in w/c with call light/phone in reach. All needs met in room. OT Short Term Goals Short Term Goals Time Frame: May 24, 2020 Shower/bathe self: 3 Lower body dressin Putting on/taking off footwear: 3 OT Benefit Director Goals Benefit Director Goals Time Frame: Jun 03, 2020 Eating (QC): 6 Oral Hygiene (QC): 6 Toileting Hygiene (QC): 6 Shower/Bathe Self (QC): 6 Upper Body Dressing (QC): 6 Lower Body Dressing (QC): 6 On/Off Footwear (QC): 6 Additional Goals: 1-Demonstrate ADL Tasks, 2-Verbalize Understanding, 3-ImproveStrength/Jameel 1=Demonstrate adherence to instructed precautions during ADL tasks. 2=Patient will verbalize/demonstrate understanding of assistive devices/modifications for ADL. 3=Patient will improve strength/tolerance for activity to enable patient to perform ADL's. OT Education/Plan Problem List/Assessment Assessment: Decreased Activ Tolerance, Decreased Safety Aware, Decreased UE Strength, Dependent Transfers, Impaired Bed Mobility, Impaired Cognition, Impaired Coordination, Impaired Funct Balance, Impaired I ADL's, Impaired Self- Care Skills, Restricted Funct UE ROM Discharge Recommendations Plan/Recommendations: Continue POC Treatment Plan/Plan of Care Patient would benefit from OT for education, treatment and training to promote independence in ADL's, mobility, safety and/or upper extremity function for ADL's. Plan of Care: ADL Retraining, Functional Mobility, Group Exercise/Act as Ind, U E Funct Exercise/Act, W/C Management Training Treatment Duration: Jun 03, 2020 Frequency: Modified Program (IRF) (24/03) Estimated Hrs Per Day: 1.5 hours per day Rehab Potential: Fair Time/GCodes Start Time: 09:00 Stop Time: 09:40 Total Time Billed (hr/min): 40 Billed Treatment Time 1 visit-FA 3 (40 min) TAWNYA BYNUM May 15, 2020 11:12
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
[2020-05-15 17:42] VITALS: BP 121/56
--- NOTE | 2020-05-15 19:23 | NUR ---
bedside report received from DEJA CHAIDEZ, assume care of pt
--- NOTE | 2020-05-15 20:12 | NUR ---
pt took laxatives tonight, c/o generalized discomfort, pain level 8/10 on numeric scale, oxyir 5mg given, fsbs 203 NovoLog 6 units given.
[2020-05-15] MEDS: SENNOSIDES 8.6 MG (SENOKOT) TAB PO SCH (20:13)
[2020-05-15] MEDS: MONTELUKAST 10 MG (SINGULAIR) TAB PO SCH (20:13)
[2020-05-15] MEDS: LIDOCAINE PATCH REMOVAL TP SCH (20:34)
--- NOTE | 2020-05-15 21:05 | NUR ---
rates pain level 5/10 on numeric scale
--- NOTE | 2020-05-15 21:30 | NUR ---
up to commode with 2 person assist & waker
--- NOTE | 2020-05-15 21:40 | NUR ---
back to bed, had small hard stool, dressing change to lt groin packed with 1/2 inch iodoform gauze then 2/2 & tape, puncture site clean no drainage
--- NOTE | 2020-05-15 23:07 | NUR ---
c/o muscle spasms, pain level 7/10 on numeric scale, soma 350mg given
--- NOTE | 2020-05-15 23:48 | NUR ---
resting quietly in bed, pain level 0/10 on CNPI SCALE
--- NOTE | 2020-05-16 03:28 | NUR ---
c/o generalized discomfort, pain level 7/10 on numeric scale, oxyir 5mg given
--- NOTE | 2020-05-16 04:05 | NUR ---
rates pain at 5/10 on numeric scale
[2020-05-16 05:22] VITALS: BP 119/56
[2020-05-16] MEDS: inSUlin ASPART (NovoLOG) 1 UNIT/0.01 ML (CHARGE PER UNIT) SC SCH ×4 (06:00→20:32)
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
[2020-05-16] MEDS: LEVOTHYROXINE 100 MCG (LEVOTHROID) TAB PO SCH (06:44)
[2020-05-16] MEDS: ADVAIR HFA 115/21 MCG INHALER 8 GM IH SCH ×2 (06:48→19:26)
[2020-05-16 08:30] VITALS: BP 105/57
[2020-05-16] MEDS: CALCIUM CARB + VIT D 600 MG (CALCARB + D) TAB PO SCH (08:45)
[2020-05-16] MEDS: LOSARTAN 100 MG (COZAAR) TABLET PO SCH (08:46)
[2020-05-16] MEDS: ENOXAPARIN 30 MG/0.3 ML (LOVENOX) SYR SQ SCH ×2 (08:46→20:22)
[2020-05-16] MEDS: LEVETIRACETAM 500 MG (KEPPRA) TAB PO SCH ×2 (08:46→20:23)
[2020-05-16] MEDS: LIDOCAINE 4% (SALONPAS) PATCH TP SCH (08:46)
[2020-05-16] MEDS: CARISOPRODOL 350 MG (SOMA) TAB PO PRN ×3 (08:46→22:45)
[2020-05-16] MEDS: DOCUSATE SODIUM 100 MG (COLACE) CAP PO SCH ×2 (08:46→20:23)
[2020-05-16] MEDS: OMEGA 3 (FISH OIL) 1000 MG CAP PO SCH (08:46)
[2020-05-16] MEDS: PREGABALIN 100 MG (LYRICA) CAPSULE PO SCH ×2 (08:46→20:23)
[2020-05-16] MEDS: PANTOPRAZOLE 40 MG (PROTONIX) TAB PO SCH (08:46)
[2020-05-16] MEDS: LACTOBACILLUS ACIDOPHILUS (PROBIOTIC) CAPSULE PO SCH ×2 (08:47→20:23)
[2020-05-16] MEDS: polyethylene glycoL POWDER 17 GM (MIRALAX) PACK PO SCH (08:47)
[2020-05-16] MEDS: ASPIRIN E.C. 81 MG (ECOTRIN) TAB PO SCH (08:47)
[2020-05-16 18:48] VITALS: BP 118/58
--- NOTE | 2020-05-16 19:14 | NUR ---
bedside report received from DEJA CHAIDEZ, assume care of pt
[2020-05-16] MEDS: MONTELUKAST 10 MG (SINGULAIR) TAB PO SCH (20:24)
--- NOTE | 2020-05-16 20:32 | NUR ---
pt tony Carr refused Senokot, fsbs 190 NovoLog 4 units given
[2020-05-16] MEDS: LIDOCAINE PATCH REMOVAL TP SCH (20:34)
[2020-05-16] MEDS: SENNOSIDES 8.6 MG (SENOKOT) TAB PO SCH (20:34)
--- NOTE | 2020-05-16 22:45 | NUR ---
c/o pain to rt leg, pain level 8/10 on numeric scale, oxyir 5mg & soma 350mg given
--- NOTE | 2020-05-16 23:30 | NUR ---
resting quietly in bed, pain level 0/10 on CNPI scale
--- NOTE | 2020-05-17 04:41 | NUR ---
c/o rt leg pain, pain level 7/10 on numeric scale, oxyir 5mg given
--- NOTE | 2020-05-17 05:26 | NUR ---
resting quietly in bed, pain level 0/10 on CNPI scale
[2020-05-17 05:44] VITALS: BP 142/65
[2020-05-17] MEDS: LEVOTHYROXINE 100 MCG (LEVOTHROID) TAB PO SCH (06:35)
[2020-05-17] MEDS: inSUlin ASPART (NovoLOG) 1 UNIT/0.01 ML (CHARGE PER UNIT) SC SCH ×4 (06:40→20:39)
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
[2020-05-17] MEDS: ADVAIR HFA 115/21 MCG INHALER 8 GM IH SCH ×2 (07:31→22:52)
[2020-05-17 08:00] VITALS: BP 119/57
[2020-05-17] MEDS: CARISOPRODOL 350 MG (SOMA) TAB PO PRN ×3 (08:03→20:46)
[2020-05-17] MEDS: LACTOBACILLUS ACIDOPHILUS (PROBIOTIC) CAPSULE PO SCH ×2 (08:12→20:41)
[2020-05-17] MEDS: PANTOPRAZOLE 40 MG (PROTONIX) TAB PO SCH (08:12)
[2020-05-17] MEDS: ENOXAPARIN 30 MG/0.3 ML (LOVENOX) SYR SQ SCH ×2 (08:12→20:40)
[2020-05-17] MEDS: PREGABALIN 100 MG (LYRICA) CAPSULE PO SCH ×2 (08:12→20:41)
[2020-05-17] MEDS: ASPIRIN E.C. 81 MG (ECOTRIN) TAB PO SCH (08:12)
[2020-05-17] MEDS: OMEGA 3 (FISH OIL) 1000 MG CAP PO SCH (08:12)
[2020-05-17] MEDS: LEVETIRACETAM 500 MG (KEPPRA) TAB PO SCH ×2 (08:12→20:41)
[2020-05-17] MEDS: LOSARTAN 100 MG (COZAAR) TABLET PO SCH (08:12)
[2020-05-17] MEDS: polyethylene glycoL POWDER 17 GM (MIRALAX) PACK PO SCH (08:13)
[2020-05-17] MEDS: DOCUSATE SODIUM 100 MG (COLACE) CAP PO SCH ×2 (08:13→20:40)
[2020-05-17] MEDS: CALCIUM CARB + VIT D 600 MG (CALCARB + D) TAB PO SCH (08:13)
[2020-05-17] MEDS: LIDOCAINE 4% (SALONPAS) PATCH TP SCH (08:13)
[2020-05-17 09:33] LABS: BASOPHILS % (AUTO) 0 % (0-10); EOSINOPHILS # (AUTO) 0.4 10^3/uL (0.0-0.3); EOSINOPHILS % (AUTO) 4 % (0-10); HEMATOCRIT 32 % (35-52); HEMOGLOBIN 9.8 G/DL (11.5-16.0); LYMPHOCYTES # (AUTO) 1.4 X 10^3 (1.0-4.0); LYMPHOCYTES % (AUTO) 16 % (12-44); MEAN CORPUSCULAR HEMOGLOBIN 30 PG (25-34); MEAN CORPUSCULAR HGB CONC 31 G/DL (32-36); MEAN CORPUSCULAR VOLUME 97 FL (80-99); MEAN PLATELET VOLUME 10.7 FL (7.4-10.4); MONOCYTES # (AUTO) 0.6 X 10^3 (0.0-1.0); MONOCYTES % (AUTO) 7 % (0-12); NEUTROPHILS # (AUTO) 6.4 X 10^3 (1.8-7.8); NEUTROPHILS % (AUTO) 73 % (42-75); PLATELET COUNT 137 10^3/uL (130-400); WHITE BLOOD COUNT 8.8 10^3/uL (4.3-11.0)
[2020-05-17 09:36] LABS: ALBUMIN 3.5 GM/DL (3.2-4.5)
[2020-05-17 09:37] LABS: CHLORIDE 101 MMOL/L (98-107); POTASSIUM 3.9 MMOL/L (3.6-5.0); SODIUM 139 MMOL/L (135-145)
[2020-05-17 09:39] LABS: GLUCOSE 230 MG/DL (70-105); TOTAL PROTEIN 6.8 GM/DL (6.4-8.2)
[2020-05-17 09:40] LABS: CARBON DIOXIDE 27 MMOL/L (21-32)
[2020-05-17 09:41] LABS: BILIRUBIN,TOTAL 0.9 MG/DL (0.1-1.0)
[2020-05-17 09:42] LABS: ALKALINE PHOSPHATASE 133 U/L (40-136)
[2020-05-17 09:43] LABS: CREATININE SERUM 0.88 MG/DL (0.60-1.30); GFR ESTIMATED > 60
[2020-05-17 09:44] LABS: BUN/CREATININE RATIO 13
[2020-05-17 09:46] LABS: ALANINE AMINOTRANSFERASE 29 U/L (0-55)
--- NOTE | 2020-05-17 10:47 | Physical Therapy Daily Note ---
PT Daily Note-Current Subjective Patient in bed pre tx, agrees to PT, no pain reported. Will be co-treating with OT due to poor patient mobility, strength, endurance, sitting and standing balance, the need to coordinate UE and LE during activity. Appearance Patient sitting EOB post tx per patient request, she states she will not try to get up on her own and will call nursing when she has to lay down, has nurse call, phone, tray, all needs met. Mental Status Patient Orientation: Person, Place, Situation Transfers SCALE: Activities may be completed with or without assistive devices. 3-Bnqukapcxw-zitjehz completes the activity by him/herself with no assistance from a helper. 5-Set-up or Clean-up Assistance-helper sets up or cleans up; patient completes activity. [place] assists only prior to or following the activity. 4-Supervision or Touching Assistance-helper provides verbal cues and/or touching/steadying and/or contact guard assistance as patient completes activity. Assistance may be provided throughout the activity or intermittently. 3-Partial/Moderate Assistance-helper does LESS THAN HALF the effort. [place] lifts, holds or supports trunk or limbs, but provides less than half the effort. 2-Substantial/Maximal Assistance-helper does MORE THAN HALF the effort. [place] lifts or holds trunk or limbs and provides more than half the effort. 8-Azpcbrqyl-aptlnc does ALL the effort. Patient does none of the effort to complete the activity. Or, the assistance of 2 or more helpers is required for the patient to complete the activity. If activity was not attempted, code reason: 7-Patient Refused. 9-Not Applicable-not attempted and the patient did not perform the activity before the current illness, exacerbation or injury. 10-Not Attempted due to Environmental Limitations-(lack of equipment, weather restraints, etc.). 88-Not Attempted due to Medical Conditions or Safety Concerns. Roll Left & Right (QC): 3 Lying to Sitting/Side of Bed(Q: 3 Sit to Stand (QC): 3 Chair/Hhb-ah-Ycrwc Xfer(QC): 3 Supine to sit with min assist, sit to stand mod assist, OT pulls down brief and stand pivot to shower chair, take shower chair to shower, bathe, take back to bedside, stand pivot to bed. Weight Bearing Right Lower Extremity: Right Non Weight Bearing Treatments PT worked on bed mobility and transfers, positioning and balance during bathing, OT worked on bathing and dressing. Assessment Current Status: Poor Progress Patient still requires mod assist for stand pivot transfers. PT Short Term Goals Short Term Goals Time Frame: May 20, 2020 Roll Left & Right: 3 Sit to lyin Lying to sitting on side of be: 3 Sit to stand: 3 Chair/oaf-mi-culow transfer: 3 PT Penitentiary Goals [employer] Goals PT Penitentiary Goals Time Frame: Jun 03, 2020 Roll Left & Right (QC): 4 Sit to Lying (QC): 4 Lying-Sitting on Side/Bed(QC): 4 Sit to Stand (QC): 4 Chair/Jxx-ee-Dlrsw Xfer(QC): 4 Toilet Transfer (QC): 4 Car Transfer (QC): 3 Does the Patient Walk: No and Walking Goal IS indicated Walk 10 feet (QC): 3 Walk 50ft with 2 Turns (QC): 3 Walk 150 ft (QC): 88 Walking 10ft on Uneven Surface: 3 1 Step (curb) (QC): 3 4 Steps (QC): 88 12 Steps (QC): 88 Picking up an Object (QC): 88 Wheel 50 feet with 2 turns (QC: 6 Wheel 150 feet: 6 PT Plan Problem List Problem List: Activity Tolerance, Functional Strength, Safety, Balance, Gait, Transfer, Bed Mobility, ROM Treatment/Plan Treatment Plan: Continue Plan of Care Treatment Plan: Bed Mobility, Education, Functional Activity Jameel, Functional Strength, Group Therapy, Gait, Safety, Therapeutic Exercise, Transfers Treatment Duration: Jun 03, 2020 Frequency: Modified Program (IRF) (24/03) Estimated Hrs Per Day: 1.5 hours per day Patient and/or Family Agrees t: Yes Safety Risks/Education Patient Education: Transfer Techniques, Correct Positioning, Safety Issues Teaching Recipient: Patient Teaching Methods: Demonstration, Discussion Response to Teaching: Reinforcement Needed Time/GCodes Time In: 1000 Time Out: 1045 Total Billed Treatment Time: 45 Total Billed Treatment 1 visit FA 45' ARYA RIGGS PT May 17, 2020 10:47
--- NOTE | 2020-05-17 10:50 | Speech Therapy Daily Note ---
Speech Daily Progress Note Subjective Date Seen by Provider: May 17, 2020 Time Seen by Provider: 00:30 Patient was resting in her bed this am. States she still can't believe this has happened to her. Objective Patient completed a series of memory questions related to her daily needs and recent events with 90% given minimal cues. Assessment Assessment Current Status: Good Progress Treatment Plan Continue Plan of Care Speech Short Term Goals Short Term Goals Short Term Goals 1) Patient will complete memory tasks related to her daily needs at 90% or greater with minimal cues. 2) Patient will complete problem solving tasks related to her daily needs at 90% or greater with minimal cues. 3) Patient will complete safety awareness tasks related to her daily needs at 90% or greater with minimal cues. Speech Seismic Prospecting Supervisor Goals Penitentiary Goals Patient will improve her cognitive functional level for meeting her daily needs with minimal assist. Speech-Plan Patient/Family Goals Patient/Family Goals: Patient plans on returning to her home with home health upon discharge. Treatment Plan Speech Therapy Treatment Plan: Continue Plan of Care Treatment Duration: May 28, 2020 Frequency: 4 times per week (Patient will receive skilled ST 4-5x per week) Estimated Hrs Per Day: .5 hour per day Rehab Potential: Fair Barriers to Learning: Patient's physical status, medical needs Pt/Family Agrees to Plan: Yes Safety Risks/Education Teaching Recipient: Patient Teaching Methods: Demonstration, Discussion Response to Teaching: Verbalize Understanding, Return Demonstration Education Topics Provided: Continued safety within his room Time Speech Therapy Time In: 09:00 Speech Therapy Time Out: 09:30 Total Billed Time: 30 Billed Treatment Time 1, SVETLANA Luis May 17, 2020 10:50
--- NOTE | 2020-05-17 12:41 | Occupational Ther Daily Note ---
OT Current Status-Daily Note Subjective No pain reported. Appearance Pt. in bed. Agrees to work with OT. Mental Status/Objective Patient Orientation: Person, Place Attachments: Oxygen ADL-Treatment Therapy Code Descriptions/Definitions Functional [place] Measure: 0=Not Assessed/NA 4=Minimal Assistance 1=Total Assistance 5=Supervision or Setup 2=Maximal Assistance 6=Modified [place] 3=Moderate Assistance 7=Complete IndependenceSCALE: Activities may be completed with or without assistive devices. 8-Jszmjsqfzp-mcclmfb completes the activity by him/herself with no assistance from a helper. 5-Set-up or Clean-up Assistance-helper sets up or cleans up; patient completes activity. [place] assists only prior to or following the activity. 4-Supervision or Touching Assistance-helper provides verbal cues and/or touching/steadying and/or contact guard assistance as patient completes activity. Assistance may be provided throughout the activity or intermittently. 3-Partial/Moderate Assistance-helper does LESS THAN HALF the effort. [place] lifts, holds or supports trunk or limbs, but provides less than half the effort. 2-Substantial/Maximal Assistance-helper does MORE THAN HALF the effort. [place] lifts or holds trunk or limbs and provides more than half the effort. 5-Eminjrird-tiwelb does ALL the effort. Patient does none of the effort to complete the activity. Or, the assistance of 2 or more helpers is required for the patient to complete the activity. If activity was not attempted, code reason: 7-Patient Refused. 9-Not Applicable-not attempted and the patient did not perform the activity before the current illness, exacerbation or injury. 10-Not Attempted due to Environmental Limitations-(lack of equipment, weather restraints, etc.). 88-Not Attempted due to Medical Conditions or Safety Concerns. Shower/Bathe Self (QC): 4 (CGA seated in shower chair.) Upper Body Dressing (QC): 7 Lower Body Dressing (QC): 1 On/Off Footwear: 1 Other Treatment Pt. agrees to work with OT/PT for co-treatment due to fatigue, weakness, and decreased processing. PT focused on transfers and mobility while OT focused on ADL skills. Pt. transferred supine-sit with mod assist. Transferred to shower chair with max assist. Pt.requires cues to sequence and complete the next step. Taken to shower chair and pt. showered with increased time needed. Pt. able to wash all parts, with cues for safety. OT doffed/donned slipper socks and brief, as pt. was unable to bend to do so. Brief was pulled up in stance by OT, while PT assisted with standing her. Pt. transferred back to bed with mod assist for stand pivot transfer. Pt. requests to stay seated on side of bed to brush hair. All needs met. Education OT Patient Education: Correct positioning, Energy conservation, Modified ADL techniques, Progress toward Goal/Update tx plan, Purpose of tx/functional activities, Reviewed precautions, Rehab process, Transfer techniques Teaching Recipient: Patient Teaching Methods: Demonstration, Discussion Response to Teaching: Verbalize Understanding, Return Demonstration, Reinforcement Needed OT Short Term Goals Short Term Goals Time Frame: May 24, 2020 Shower/bathe self: 3 Lower body dressin Putting on/taking off footwear: 3 OT Bindery Operator Goals Bindery Operator Goals Time Frame: Jun 03, 2020 Eating (QC): 6 Oral Hygiene (QC): 6 Toileting Hygiene (QC): 6 Shower/Bathe Self (QC): 6 Upper Body Dressing (QC): 6 Lower Body Dressing (QC): 6 On/Off Footwear (QC): 6 Additional Goals: 1-Demonstrate ADL Tasks, 2-Verbalize Understanding, 3- ImproveStrength/Jameel 1=Demonstrate adherence to instructed precautions during ADL tasks. 2=Patient will verbalize/demonstrate understanding of assistive de vices/modifications for ADL. 3=Patient will improve strength/tolerance for activity to enable patient to perform ADL's. OT Education/Plan Problem List/Assessment Assessment: Decreased Activ Tolerance, Decreased Safety Aware, Decreased UE Strength, Dependent Transfers, Impaired Bed Mobility, Impaired Cognition, Impaired Coordination, Impaired Funct Balance, Impaired I ADL's, Impaired Self- Care Skills, Restricted Funct UE ROM Discharge Recommendations Plan/Recommendations: Continue POC Therapy Discharge Recommendati: Post Acute OT Treatment Plan/Plan of Care Treatment,Training & Education: Yes Patient would benefit from OT for education, treatment and training to promote independence in ADL's, mobility, safety and/or upper extremity function for ADL's. Plan of Care: ADL Retraining, Functional Mobility, Group Exercise/Act as Ind, UE Funct Exercise/Act, W/C Management Training Treatment Duration: Jun 03, 2020 Frequency: Modified Program (IRF) (24/03) Estimated Hrs Per Day: 1.5 hours per day Agreement: Yes Rehab Potential: Fair Time/GCodes Start Time: 10:00 Stop Time: 10:45 Total Time Billed (hr/min): 45 Billed Treatment Time 1, ADL x 3 RALF GUO OT May 17, 2020 12:40
--- NOTE | 2020-05-17 14:31 | Therapy Group Daily Note ---
Therapy Daily Group Note Patient Education Topic Home Safety, Fall Prevention, Exercises Exercises LE Seated Exercise, UE Exercise Session Ratio (pt:therapist): 4:1 Goal of Session: Home Safety Strategies, UE/LE Strengthing, Other (list) (Fall prevention) Pt was able to identify ways that she has modified her home in the past and what she is planning to do to prevent falls in her home after discharge. She participated in seated UE and LE exercises to benefit transfers and ADLs. Goal Met for this Session: Yes Pt Benefit of Group: Contributions to Others, F/U Use of Strategies @Home, Increased Functional Strength, Socialization Pt benefitted from hearing about the experiences of others and sharing her experiences related to fall prevention. She also benefitted from exercises to strengthen body for ADLs and transfers. Start Time: 13:00 Stop Time: 14:00 Total Billed Treatment Time: 60 Total Billed Treatment visit, 60 minutes group GOLDEN POSADAS OT May 17, 2020 14:31
[2020-05-17 18:00] VITALS: BP 110/56
[2020-05-17] MEDS: SENNOSIDES 8.6 MG (SENOKOT) TAB PO SCH (20:41)
[2020-05-17] MEDS: LIDOCAINE PATCH REMOVAL TP SCH (20:41)
[2020-05-17] MEDS: MONTELUKAST 10 MG (SINGULAIR) TAB PO SCH (20:41)
[2020-05-17] MEDS: ONDANSETRON 4 MG (ZOFRAN) ORAL DISSOLVE TAB PO PRN (22:39)
[2020-05-18 05:01] VITALS: BP 114/58
[2020-05-18] MEDS: CARISOPRODOL 350 MG (SOMA) TAB PO PRN ×3 (06:20→20:28)
[2020-05-18] MEDS: LEVOTHYROXINE 100 MCG (LEVOTHROID) TAB PO SCH (06:20)
[2020-05-18] MEDS: inSUlin ASPART (NovoLOG) 1 UNIT/0.01 ML (CHARGE PER UNIT) SC SCH ×4 (06:36→20:37)
[2020-05-18] MEDS: LOSARTAN 100 MG (COZAAR) TABLET PO SCH (08:14)
[2020-05-18] MEDS: PANTOPRAZOLE 40 MG (PROTONIX) TAB PO SCH (08:14)
[2020-05-18] MEDS: LEVETIRACETAM 500 MG (KEPPRA) TAB PO SCH ×2 (08:14→20:27)
[2020-05-18] MEDS: PREGABALIN 100 MG (LYRICA) CAPSULE PO SCH ×2 (08:14→20:28)
[2020-05-18] MEDS: ENOXAPARIN 30 MG/0.3 ML (LOVENOX) SYR SQ SCH ×2 (08:14→20:27)
[2020-05-18] MEDS: CALCIUM CARB + VIT D 600 MG (CALCARB + D) TAB PO SCH (08:14)
[2020-05-18] MEDS: OMEGA 3 (FISH OIL) 1000 MG CAP PO SCH (08:14)
[2020-05-18] MEDS: LIDOCAINE 4% (SALONPAS) PATCH TP SCH (08:14)
[2020-05-18] MEDS: ASPIRIN E.C. 81 MG (ECOTRIN) TAB PO SCH (08:15)
[2020-05-18] MEDS: LACTOBACILLUS ACIDOPHILUS (PROBIOTIC) CAPSULE PO SCH ×2 (08:15→20:27)
[2020-05-18] MEDS: ADVAIR HFA 115/21 MCG INHALER 8 GM IH SCH ×2 (08:21→18:56)
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
--- NOTE | 2020-05-18 09:03 | Physical Therapy Daily Note ---
PT Daily Note-Current Subjective Patient in WC pre tx, agrees to PT, has 7-8/10 pain in right side and hip. Will be co-treating with OT due to poor patient mobility, strength, endurance, poor standing balance, the need to coordinate UE and LE during activity. Appearance Patient in recliner post tx with nurse call, phone, tray, all needs met, legs elevated. Mental Status Patient Orientation: Person, Place, Situation Attachments: Oxygen Transfers SCALE: Activities may be completed with or without assistive devices. 0-Kdxvdxgtvd-yvtpjhz completes the activity by him/herself with no assistance from a helper. 5-Set-up or Clean-up Assistance-helper sets up or cleans up; patient completes activity. [place] assists only prior to or following the activity. 4-Supervision or Touching Assistance-helper provides verbal cues and/or touching/steadying and/or contact guard assistance as patient completes activity. Assistance may be provided throughout the activity or intermittently. 3-Partial/Moderate Assistance-helper does LESS THAN HALF the effort. [place] lifts, holds or supports trunk or limbs, but provides less than half the effort. 2-Substantial/Maximal Assistance-helper does MORE THAN HALF the effort. [place] lifts or holds trunk or limbs and provides more than half the effort. 0-Ughwmpkrx-khlxlq does ALL the effort. Patient does none of the effort to complete the activity. Or, the assistance of 2 or more helpers is required for the patient to complete the activity. If activity was not attempted, code reason: 7-Patient Refused. 9-Not Applicable-not attempted and the patient did not perform the activity before the current illness, exacerbation or injury. 10-Not Attempted due to Environmental Limitations-(lack of equipment, weather restraints, etc.). 88-Not Attempted due to Medical Conditions or Safety Concerns. Sit to Stand (QC): 3 Chair/Zuy-ag-Bahqs Xfer(QC): 3 2 stand pivot transfers with mod assist and 2 sliding board transfers also with min assist. Patient has trouble keeping weight off of right foot with both transfers Weight Bearing Right Lower Extremity: Right Non Weight Bearing Wheelchair Training Wheel 50 ft with 2 turns (QC): 3 Wheel 150 ft (QC): 3 Type of Wheelchair: Manual Min assist around obstacles, cues for direction Exercises Seated Therapy Exercises: Long arc quads, Hip flexion Seated Reps: 10 sit to stand from elevated surface x5 Treatments PT worked on transfers, assist with positioning and safety during dressing, LE exercise, WC mobility, sit to stand, OT worked on dressing, assist with UE po sitioning and safety during activity Assessment Current Status: Poor Progress Patient is having trouble with bigger movements, it is unsure if she is participating with full effort. PT Short Term Goals Short Term Goals Time Frame: May 20, 2020 Roll Left & Right: 3 Sit to lyin Lying to sitting on side of be: 3 Sit to stand: 3 Chair/oxf-zx-wtltn transfer: 3 PT Jail Goals Jail Goals PT Accredited Pharmacy Technician Goals Time Frame: Jun 03, 2020 Roll Left & Right (QC): 4 Sit to Lying (QC): 4 Lying-Sitting on Side/Bed(QC): 4 Sit to Stand (QC): 4 Chair/Jnm-br-Pyehm Xfer(QC): 4 Toilet Transfer (QC): 4 Car Transfer (QC): 3 Does the Patient Walk: No and Walking Goal IS indicated Walk 10 feet (QC): 3 Walk 50ft with 2 Turns (QC): 3 Walk 150 ft (QC): 88 Walking 10ft on Uneven Surface: 3 1 Step (curb) (QC): 3 4 Steps (QC): 88 12 Steps (QC): 88 Picking up an Object (QC): 88 Wheel 50 feet with 2 turns (QC: 6 Wheel 150 feet: 6 PT Plan Problem List Problem List: Activity Tolerance, Functional Strength, Safety, Balance, Gait, Transfer, Bed Mobility, ROM Treatment/Plan Treatment Plan: Continue Plan of Care Treatment Plan: Bed Mobility, Education, Functional Activity Jameel, Functional Strength, Group Therapy, Gait, Safety, Therapeutic Exercise, Transfers Treatment Duration: Jun 03, 2020 Frequency: Modified Program (IRF) (24/03) Estimated Hrs Per Day: 1.5 hours per day Patient and/or Family Agrees t: Yes Safety Risks/Education Patient Education: Transfer Techniques, Reviewed Precautions, Correct Positioning, W/C Management, Safety Issues Teaching Recipient: Patient Teaching Methods: Demonstration, Discussion Response to Teaching: Reinforcement Needed Time/GCodes Time In: 0800 Time Out: 0900 Total Billed Treatment Time: 60 Total Billed Treatment 1 visit EX 20' FA 40' ARYA RIGGS PT May 18, 2020 09:03
--- NOTE | 2020-05-18 09:03 | Occupational Ther Daily Note ---
OT Current Status-Daily Note Subjective Pt seen in recliner. Pt states 7-8/10 pain in hip/ "all over." Pt alert, agrees to therapy. OT/ PT co-treat this session: OT addresses ADL tx, UE movement, sequencing, problem solving; PT addresses LE movement, fx transfers, balance. Pt seen in bed for OT individual tx. Pt states pain in hip, desires to change clothing into gown. ADL-Treatment Therapy Code Descriptions/Definitions Functional [place] Measure: 0=Not Assessed/NA 4=Minimal Assistance 1=Total Assistance 5=Supervision or Setup 2=Maximal Assistance 6=Modified [place] 3=Moderate Assistance 7=Complete IndependenceSCALE: Activities may be completed with or without assistive devices. 2-Qrzrdtwhii-npphmub completes the activity by him/herself with no assistance from a helper. 5-Set-up or Clean-up Assistance-helper sets up or cleans up; patient completes activity. [place] assists only prior to or following the activity. 4-Supervision or Touching Assistance-helper provides verbal cues and/or touching/steadying and/or contact guard assistance as patient completes activity. Assistance may be provided throughout the activity or intermittently. 3-Partial/Moderate Assistance-helper does LESS THAN HALF the effort. [place] lifts, holds or supports trunk or limbs, but provides less than half the effort. 2-Substantial/Maximal Assistance-helper does MORE THAN HALF the effort. [place] lifts or holds trunk or limbs and provides more than half the effort. 0-Fbvcczndz-eilzvi does ALL the effort. Patient does none of the effort to complete the activity. Or, the assistance of 2 or more helpers is required for the patient to complete the activity. If activity was not attempted, code reason: 7-Patient Refused. 9-Not Applicable-not attempted and the patient did not perform the activity before the current illness, exacerbation or injury. 10-Not Attempted due to Environmental Limitations-(lack of equipment, weather restraints, etc.). 88-Not Attempted due to Medical Conditions or Safety Concerns. Eating (QC): 6 (per pt. Pt able to bring drink to mouth and drink with success.) Shower/Bathe Self (QC): 7 Upper Body Dressing (QC): 5 (s/u fredi shirt.) Lower Body Dressing (QC): 1 (TD (max Ax2). Pt requires assist threading BLe, though able to pull up to above knees post threading feet. Pt requires cues for sequencing/ problem solving. Max A x2 for assist to pull up in stnace.) On/Off Footwear: 1 (TD L footwear.) Other Treatment [id number] OT/ PT co-treat this session: OT addresses ADL tx, UE movement, seq uencing, problem solving; PT addresses LE movement, fx transfers, balance. Pt completes sit to stand from w/c level with max A to complete ADL/ dressing in room prior to w/c mob to gym. Pt complete w/c mob/ self propelling with cues for sharp turns and problem solving. Pt completes 2 sets of slide board transfers (first to R side with cues and max A, second back to w/c placed on L side with heightened bed/ low w/c and mod A). Pt completes 5 sit to stands with cues for NWB RLE with mod A 1/5, and CGA 4/5. Pt completes UE/ LE ther ex with cues for purpose and sequencing to address fx activity and ROM to complete ADL tasks. Pt propels back to room with min cues. SPT to recliner with max A. All needs met, call light in reach. [id number]: Pt completes rolling technique in bed to attempt doffing LB pants. Pt able to roll with cues, requires max A to doff in this position. Pt's umer straightened as well, making pt roll ~4 x during this tx. Pt educated on pressure relieving techniques and pillow placed under pt's R hip. Pt states a decrease in pain in this position. Pt educated on UE theraband ex and purpose of ex. Pt completes 5 reps bilaterally of 3/3 ex. Pt left in bed with all needs met, call light in reach. Education OT Patient Education: Correct positioning, Exercise program, Home exercise program, Modified ADL techniques, Progress toward Goal/Update tx plan, Purpose of tx/functional activities, Rehab process, Safety issues, Transfer techniques Teaching Recipient: Patient Teaching Methods: Demonstration, Handout, Discussion Response to Teaching: Verbalize Understanding, Return Demonstration, Reinforcement Needed OT Short Term Goals Short Term Goals Time Frame: May 24, 2020 Shower/bathe self: 3 Lower body dressin Putting on/taking off footwear: 3 OT Longterm Goals Drop Forge Operator Goals Time Frame: Jun 03, 2020 Eating (QC): 6 Oral Hygiene (QC): 6 Toileting Hygiene (QC): 6 Shower/Bathe Self (QC): 6 Upper Body Dressing (QC): 6 Lower Body Dressing (QC): 6 On/Off Footwear (QC): 6 Additional Goals: 1-Demonstrate ADL Tasks, 2-Verbalize Understanding, 3- ImproveStrength/Jameel 1=Demonstrate adherence to instructed precautions during ADL tasks. 2=Patient will verbalize/demonstrate understanding of assistive devices/modifications for ADL. 3=Patient will improve strength/tolerance for activity to enable patient to perform ADL's. OT Education/Plan Problem List/Assessment Assessment: Decreased Activ Tolerance, Decreased UE Strength, Dependent Transfers, Edema, Impaired Bed Mobility, Impaired Coordination, Impaired Funct Balance, Impaired I ADL's, Impaired Self-Care Skills Discharge Recommendations Plan/Recommendations: Continue POC Treatment Plan/Plan of Care Treatment,Training & Education: Yes Patient would benefit from OT for education, treatment and training to promote independence in ADL's, mobility, safety and/or upper extremity function for ADL's. Plan of Care: ADL Retraining, Functional Mobility, Group Exercise/Act as Ind, UE Funct Exercise/Act, W/C Management Training Treatment Duration: Jun 03, 2020 Frequency: Modified Program (IRF) (24/03) Estimated Hrs Per Day: 1.5 hours per day Agreement: Yes Rehab Potential: Fair Time/GCodes Start Time: 08:00 (1015) Stop Time: 09:00 (1030) Total Time Billed (hr/min): 75 Billed Treatment Time 5880-2959: OT/ PT co-treat this session: OT addresses ADL tx, UE movement, sequencing, problem solving; PT addresses LE movmeent, fx transfers, balance. 1, ADL, WC, EX 2 60 [id number]: 1, ADL (15) ZACHARY BUTCHER OTR May 18, 2020 09:03
[2020-05-18] MEDS: polyethylene glycoL POWDER 17 GM (MIRALAX) PACK PO SCH (09:39)
[2020-05-18] MEDS: DOCUSATE SODIUM 100 MG (COLACE) CAP PO SCH ×2 (09:39→20:27)
[2020-05-18] MEDS: LACTULOSE SYRUP 10GM/15ML (ENULOSE) 30ML UDC PO PRN (09:39)
--- NOTE | 2020-05-18 11:37 | Speech Therapy Daily Note ---
Speech Daily Progress Note Subjective Date Seen by Provider: May 18, 2020 Time Seen by Provider: 00:30 Patient was sitting up in her recliner following her PT session. She states it still really hurts but she thinks she is doing better. Objective Patient completed a series of general information questions with 90% accuracy given 10% verbal cues. Assessment Assessment Current Status: Good Progress Treatment Plan Continue Plan of Care Speech Short Term Goals Short Term Goals Short Term Goals 1) Patient will complete memory tasks related to her daily needs at 90% or greater with minimal cues. 2) Patient will complete problem solving tasks related to her daily needs at 90% or greater with minimal cues. 3) Patient will complete safety awareness tasks related to her daily needs at 90% or greater with minimal cues. Speech Real Estate Sales Supervisor Goals Real Estate Sales Supervisor Goals Patient will improve her cognitive functional level for meeting her daily needs with minimal assist. Speech-Plan Patient/Family Goals Patient/Family Goals: Patient plans on returning to her home with home health, friends and family for support. Treatment Plan Speech Therapy Treatment Plan: Continue Plan of Care Treatment Duration: May 28, 2020 Frequency: 4 times per week (Patient will receive skilled ST 4-5x per week) Estimated Hrs Per Day: .5 hour per day Rehab Potential: Fair Barriers to Learning: Patient's medical status Safety Risks/Education Teaching Recipient: Patient Teaching Methods: Demonstration, Discussion Response to Teaching: Verbalize Understanding, Return Demonstration Education Topics Provided: Continued safety within her room and communication of wants/needs. Time Speech Therapy Time In: 09:00 Speech Therapy Time Out: 09:30 Total Billed Time: 30 Billed Treatment Time 1, SVETLANA VICK May 18, 2020 11:37
--- NOTE | 2020-05-18 14:20 | Physical Therapy Daily Note ---
PT Daily Note-Current Subjective Pt presents supine in bed, being changed by nurse. Pt is compliant to PT. Pt reports burning sensation in left hip decreased with exercises. Appearance Pt had removed hand brace, and put it back on with recommendation from PT who explained how it functioned. Pt remains supine in bed after PT tx. Pt has access to tray, call button, all needs have been met and son is present in room. Mental Status Patient Orientation: Person, Place, Time, Eyes Open, Situation Attachments: Oxygen Transfers SCALE: Activities may be completed with or without assistive devices. 1-Odgmecbfeu-dwandwe completes the activity by him/herself with no assistance from a helper. 5-Set-up or Clean-up Assistance-helper sets up or cleans up; patient completes activity. [place] assists only prior to or following the activity. 4-Supervision or Touching Assistance-helper provides verbal cues and/or touching/steadying and/or contact guard assistance as patient completes activity. Assistance may be provided throughout the activity or intermittently. 3-Partial/Moderate Assistance-helper does LESS THAN HALF the effort. [place] lifts, holds or supports trunk or limbs, but provides less than half the effort. 2-Substantial/Maximal Assistance-helper does MORE THAN HALF the effort. [place] lifts or holds trunk or limbs and provides more than half the effort. 1-Pepdjrfgd-lmqpzq does ALL the effort. Patient does none of the effort to complete the activity. Or, the assistance of 2 or more helpers is required for the patient to complete the activity. If activity was not attempted, code reason: 7-Patient Refused. 9-Not Applicable-not attempted and the patient did not perform the activity before the current illness, exacerbation or injury. 10-Not Attempted due to Environmental Limitations-(lack of equipment, weather restraints, etc.). 88-Not Attempted due to Medical Conditions or Safety Concerns. Roll Left & Right (QC): 3 Weight Bearing Right Lower Extremity: Right Non Weight Bearing Exercises Supine Ex: Ankle pumps (LLE only), Glut sets, Heel Slides, Short Arc Quads, Straight leg raise Supine Reps: 20 Supine BKFO Bx20 Treatments B LE strengthening Assessment Current Status: Poor Progress Pt moves slow and is fatigued with supine exercises but states she knows they are helping. PT Short Term Goals Short Term Goals Time Frame: May 20, 2020 Roll Left & Right: 3 Sit to lyin Lying to sitting on side of be: 3 Sit to stand: 3 Chair/wfb-im-zglcm transfer: 3 PT Halfway Goals Bi Solutions Architect Goals PT Halfway Goals Time Frame: Jun 03, 2020 Roll Left & Right (QC): 4 Sit to Lying (QC): 4 Lying-Sitting on Side/Bed(QC): 4 Sit to Stand (QC): 4 Chair/God-jl-Lncrv Xfer(QC): 4 Toilet Transfer (QC): 4 Car Transfer (QC): 3 Does the Patient Walk: No and Walking Goal IS indicated Walk 10 feet (QC): 3 Walk 50ft with 2 Turns (QC): 3 Walk 150 ft (QC): 88 Walking 10ft on Uneven Surface: 3 1 Step (curb) (QC): 3 4 Steps (QC): 88 12 Steps (QC): 88 Picking up an Object (QC): 88 Wheel 50 feet with 2 turns (QC: 6 Wheel 150 feet: 6 PT Plan Problem List Problem List: Activity Tolerance, Functional Strength, Safety, Balance, Gait, Transfer, Bed Mobility, ROM Treatment/Plan Treatment Plan: Continue Plan of Care Treatment Plan: Bed Mobility, Education, Functional Activity Jameel, Functional Strength, Group Therapy, Gait, Safety, Therapeutic Exercise, Transfers Treatment Duration: Jun 03, 2020 Frequency: Modified Program (IRF) (24/03) Estimated Hrs Per Day: 1.5 hours per day Patient and/or Family Agrees t: Yes Safety Risks/Education Patient Education: Reviewed Precautions, Correct Positioning, Safety Issues Teaching Recipient: Patient Teaching Methods: Demonstration, Discussion Response to Teaching: Reinforcement Needed Time/GCodes Time In: 1315 Time Out: 1330 Total Billed Treatment Time: 15 Total Billed Treatment 1 visit EX ARYA RAMIREZ PT May 18, 2020 14:20
[2020-05-18 18:00] VITALS: BP 101/51
--- NOTE | 2020-05-18 19:15 | NUR ---
bedside report received from BARAK CHAIDEZ, assume care of pt
[2020-05-18] MEDS: MONTELUKAST 10 MG (SINGULAIR) TAB PO SCH (20:27)
--- NOTE | 2020-05-18 20:28 | NUR ---
pt took all laxatives tonight, c/o rt leg pain level 8/10 on numeric scale, given oxyir 5mg & soma 350mg, fsbs 224 NovoLog 6 units given
[2020-05-18] MEDS: SENNOSIDES 8.6 MG (SENOKOT) TAB PO SCH (20:29)
[2020-05-18] MEDS: LIDOCAINE PATCH REMOVAL TP SCH (20:44)
--- NOTE | 2020-05-18 21:10 | NUR ---
rates pain level 5/10 on numeric scale
--- NOTE | 2020-05-19 03:03 | NUR ---
pt c/o rt leg pain level 7/10 on numeric scale, oxyir 5mg & soma 350mg given
[2020-05-19] MEDS: CARISOPRODOL 350 MG (SOMA) TAB PO PRN ×3 (03:04→21:27)
--- NOTE | 2020-05-19 03:50 | NUR ---
resting quietly in bed, pain level 0/10 on CNPI SCALE
[2020-05-19 05:48] VITALS: BP 110/57
[2020-05-19] MEDS: inSUlin ASPART (NovoLOG) 1 UNIT/0.01 ML (CHARGE PER UNIT) SC SCH ×4 (06:00→21:30)
[2020-05-19] MEDS: LEVOTHYROXINE 100 MCG (LEVOTHROID) TAB PO SCH (06:34)
[2020-05-19] MEDS: ADVAIR HFA 115/21 MCG INHALER 8 GM IH SCH ×2 (07:34→20:20)
[2020-05-19] MEDS: LIDOCAINE 4% (SALONPAS) PATCH TP SCH (08:00)
[2020-05-19] MEDS: LACTOBACILLUS ACIDOPHILUS (PROBIOTIC) CAPSULE PO SCH ×2 (08:00→21:33)
[2020-05-19] MEDS: PREGABALIN 100 MG (LYRICA) CAPSULE PO SCH ×2 (08:00→21:26)
[2020-05-19] MEDS: CALCIUM CARB + VIT D 600 MG (CALCARB + D) TAB PO SCH (08:00)
[2020-05-19] MEDS: OMEGA 3 (FISH OIL) 1000 MG CAP PO SCH (08:00)
[2020-05-19] MEDS: LOSARTAN 100 MG (COZAAR) TABLET PO SCH (08:00)
[2020-05-19] MEDS: LEVETIRACETAM 500 MG (KEPPRA) TAB PO SCH ×2 (08:00→21:27)
[2020-05-19] MEDS: polyethylene glycoL POWDER 17 GM (MIRALAX) PACK PO SCH (08:00)
[2020-05-19] MEDS: PANTOPRAZOLE 40 MG (PROTONIX) TAB PO SCH (08:01)
[2020-05-19] MEDS: DOCUSATE SODIUM 100 MG (COLACE) CAP PO SCH ×2 (08:01→21:27)
[2020-05-19] MEDS: ASPIRIN E.C. 81 MG (ECOTRIN) TAB PO SCH (08:01)
[2020-05-19] MEDS: ENOXAPARIN 30 MG/0.3 ML (LOVENOX) SYR SQ SCH ×2 (08:01→21:26)
[2020-05-19] MEDS: BISACODYL 10 MG SUPP (DULCOLAX) PR PRN (08:01)
[2020-05-19] MEDS: LACTULOSE SYRUP 10GM/15ML (ENULOSE) 30ML UDC PO PRN ×2 (08:03→21:26)
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
--- NOTE | 2020-05-19 09:41 | Occupational Ther Daily Note ---
OT Current Status-Daily Note Subjective Pt in restroom with aide, agreeable to therapy at this time. Pt reports a burning sensation through right hip/thigh. ADL-Treatment Therapy Code Descriptions/Definitions Functional [place] Measure: 0=Not Assessed/NA 4=Minimal Assistance 1=Total Assistance 5=Supervision or Setup 2=Maximal Assistance 6=Modified [place] 3=Moderate Assistance 7=Complete IndependenceSCALE: Activities may be completed with or without assistive devices. 4-Nogsjgbwzz-ihtihah completes the activity by him/herself with no assistance from a helper. 5-Set-up or Clean-up Assistance-helper sets up or cleans up; patient completes activity. [place] assists only prior to or following the activity. 4-Supervision or Touching Assistance-helper provides verbal cues and/or touching/steadying and/or contact guard assistance as patient completes activity . Assistance may be provided throughout the activity or intermittently. 3-Partial/Moderate Assistance-helper does LESS THAN HALF the effort. [place] lifts, holds or supports trunk or limbs, but provides less than half the effort. 2-Substantial/Maximal Assistance-helper does MORE THAN HALF the effort. [place] lifts or holds trunk or limbs and provides more than half the effort. 5-Jgxqjaklf-gzfzbp does ALL the effort. Patient does none of the effort to complete the activity. Or, the assistance of 2 or more helpers is required for the patient to complete the activity. If activity was not attempted, code reason: 7-Patient Refused. 9-Not Applicable-not attempted and the patient did not perform the activity before the current illness, exacerbation or injury. 10-Not Attempted due to Environmental Limitations-(lack of equipment, weather restraints, etc.). 88-Not Attempted due to Medical Conditions or Safety Concerns. Shower/Bathe Self (QC): 4 (Pt completed shower seated on SC) Upper Body Dressing (QC): 7 Lower Body Dressing (QC): 1 On/Off Footwear: 1 Other Treatment Pt. agrees to work with OT/PT for co-treatment due to fatigue, weakness, and decreased processing. PT focused on transfers and mobility while OT focused on ADL skills. Pt seated in w/c in restroom with aide present. Pt reports she just completed toileting. Pt requests shower on this date, transferring from w/c to [place] with SPTraghu. Pt wheeled into shower where she completed showering, requiring increased time. She was able to wash all parts with cues for safety. Pt required assist donning/doffing gripper socks and brief, pt reports being unable to complete herself. Pt completed SPT back to / with max A, OT managed brief up as pt stood with PT during transfer. Pt combed hair with min A due to tangles, then transferred from /c to bed. Pt transferred sit to supine with min A for LEs. Pt reports her hand splint is no longer able to be used due to the velcro coming off. OT applied new velcro to pt's splint as PT performed LE exercises/ROM. Post OT/PT cotreat, pt laying in bed, call light in reach and all needs met. Education OT Patient Education: Correct positioning, Modified ADL techniques, Progress toward Goal/Update tx plan, Purpose of tx/functional activities, Safety issues, Transfer techniques Teaching Recipient: Patient Teaching Methods: Discussion Response to Teaching: Verbalize Understanding OT Short Term Goals Short Term Goals Time Frame: May 24, 2020 Shower/bathe self: 3 Lower body dressin Putting on/taking off footwear: 3 OT [facility] Goals Cafe Worker Goals Time Frame: Jun 03, 2020 Eating (QC): 6 Oral Hygiene (QC): 6 Toileting Hygiene (QC): 6 Shower/Bathe Self (QC): 6 Upper Body Dressing (QC): 6 Lower Body Dressing (QC): 6 On/Off Footwear (QC): 6 Additional Goals: 1-Demonstrate ADL Tasks, 2-Verbalize Understanding, 3- ImproveStrength/Jameel 1=Demonstrate adherence to instructed precautions during ADL tasks. 2=Patient will verbalize/demonstrate understanding of assistive devices/modifications for ADL. 3=Patient will improve strength/tolerance for activity to enable patient to perform ADL's. OT Education/Plan Problem List/Assessment Assessment: Decreased Activ Tolerance, Decreased UE Strength, Impaired Bed Mobility, Impaired Funct Balance, Impaired I ADL's, Impaired Self-Care Skills Discharge Recommendations Plan/Recommendations: Continue POC Treatment Plan/Plan of Care Patient would benefit from OT for education, treatment and training to promote independence in ADL's, mobility, safety and/or upper extremity function for ADL's. Plan of Care: ADL Retraining, Functional Mobility, Group Exercise/Act as Ind, UE Funct Exercise/Act, W/C Management Training Treatment Duration: Jun 03, 2020 Frequency: Modified Program (IRF) (24/03) Estimated Hrs Per Day: 1.5 hours per day Agreement: Yes Rehab Potential: Fair Time/GCodes Start Time: 08:15 Stop Time: 09:15 Total Time Billed (hr/min): 60 Billed Treatment Time OT/PT cotreat x60 mins 1, ADL 4 JUAN JOSE BREWSTER OT May 19, 2020 09:41
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
--- NOTE | 2020-05-19 12:19 | Physical Therapy Daily Note ---
PT Daily Note-Current Subjective Primary complaint is (R) hip "burning" and radicular pain lateral thigh. This pain rated 7/10. Pt agrees to treatment and requests shower at this time. Pt notes her Pain is relieved with manual therapy techniques. Pt denied pain post therapy in supine with (B) LE floating on pillows. Mental Status Patient Orientation: Person, Place, Situation Transfers SCALE: Activities may be completed with or without assistive devices. 3-Umekjgbtzn-yqdgiin completes the activity by him/herself with no assistance from a helper. 5-Set-up or Clean-up Assistance-helper sets up or cleans up; patient completes activity. [place] assists only prior to or following the activity. 4-Supervision or Touching Assistance-helper provides verbal cues and/or touching/steadying and/or contact guard assistance as patient completes activity. Assistance may be provided throughout the activity or intermittently. 3-Partial/Moderate Assistance-helper does LESS THAN HALF the effort. [place] lifts, holds or supports trunk or limbs, but provides less than half the effort. 2-Substantial/Maximal Assistance-helper does MORE THAN HALF the effort. [place] lifts or holds trunk or limbs and provides more than half the effort. 1-Pkuqhkhqx-njdoor does ALL the effort. Patient does none of the effort to complete the activity. Or, the assistance of 2 or more helpers is required for the patient to complete the activity. If activity was not attempted, code reason: 7-Patient Refused. 9-Not Applicable-not attempted and the patient did not perform the activity before the current illness, exacerbation or injury. 10-Not Attempted due to Environmental Limitations-(lack of equipment, weather restraints, etc.). 88-Not Attempted due to Medical Conditions or Safety Concerns. SPT required mod A to stand and CGA for steadying balance. Pt practiced transfer x 1 with PW wc->bed scooting foot 2-3 scoots with weightbearing through UEs. Weight Bearing Right Lower Extremity: Right Non Weight Bearing Treatments Pt. agrees to work with OT/PT for co-treatment due to fatigue, weakness, and decreased processing. PT focused on transfers and mobility while OT focused on ADL skills. Pt seated in w/c in restroom with aide present. Pt reports she just completed toileting. Pt requests shower on this date, transferring from w/c to [place] with SPT, max A. Pt wheeled into shower where she completed showering, requiring increased time. She was able to wash all parts with cues for safety. Pt required assist donning/doffing gripper socks and brief, pt reports being unable to complete herself. Pt completed SPT back to [facility] with raghu Valdovinos, OT managed brief up as pt stood with PT during transfer. Pt combed hair with min A due to tangles, then transferred from / to bed. Pt transferred sit to supine with min A for LEs. Pt reports her hand splint is no longer able to be used due to the velcro coming off. OT applied new velcro to pt's splint as PT performed LE exercises/ROM. Ther ex included: (R) LE positioned at 90/90 for isometric hip ext contraction 3 x 20sec. Pt rolled on (L) side with assist to scoot. Pt (R) LE resting on pillow with (L) LE straight pt AAROM for upper trunk rotation to the R combined with manual distraction lumbar spine 3 x 20 sec. Pt supine and rec'd man (R) LE traction in hooklying for relief of radicular pain. Pt (B) LE floating on pillows post treatment. Post OT/PT cotreat, pt laying in bed, call light in reach and all needs met. Assessment Current Status: Good Progress Pt is improving in functional mobility by decreased dependence with transfers, bed mobility and ability to scoot foot with support of PW. Pt progressing appropriately. PT Short Term Goals Short Term Goals Time Frame: May 20, 2020 Roll Left & Right: 3 Sit to lyin Lying to sitting on side of be: 3 Sit to stand: 3 Chair/wvz-hl-hqbeg transfer: 3 PT Senior Care Goals Senior Care Goals PT Senior Care Goals Time Frame: Jun 03, 2020 Roll Left & Right (QC): 4 Sit to Lying (QC): 4 Lying-Sitting on Side/Bed(QC): 4 Sit to Stand (QC): 4 Chair/Wgf-sg-Letmz Xfer(QC): 4 Toilet Transfer (QC): 4 Car Transfer (QC): 3 Does the Patient Walk: No and Walking Goal IS indicated Walk 10 feet (QC): 3 Walk 50ft with 2 Turns (QC): 3 Walk 150 ft (QC): 88 Walking 10ft on Uneven Surface: 3 1 Step (curb) (QC): 3 4 Steps (QC): 88 12 Steps (QC): 88 Picking up an Object (QC): 88 Wheel 50 feet with 2 turns (QC: 6 Wheel 150 feet: 6 PT Plan Treatment/Plan Treatment Plan: Continue Plan of Care Treatment Plan: Bed Mobility, Education, Functional Activity Jameel, Functional Strength, Group Therapy, Gait, Safety, Therapeutic Exercise, Transfers Treatment Duration: Jun 03, 2020 Frequency: Modified Program (IRF) (24/03) Estimated Hrs Per Day: 1.5 hours per day Patient and/or Family Agrees t: Yes Time/GCodes Time In: 815 Time Out: 915 Total Billed Treatment Time: 60 Total Billed Treatment 1, Co treat 60 min: FA x 45', Ex x 15' JUSTINE ZHU CPTAruna May 19, 2020 12:19
--- NOTE | 2020-05-19 14:46 | Therapy Group Daily Note ---
Therapy Daily Group Note Patient Education Topic Other List Below (Memory Strategies) Exercises LE Seated Exercise, UE Exercise Session Ratio (pt:therapist): 4:1 Goal of Session: Education on ARU Expectations, Memory Strategies, UE/LE Strengthing Goal Met for this Session: Yes Pt Benefit of Group: Contributions to Others, F/U Use of Strategies @Home, Incr eased Functional Safety, Increased Functional Strength, Improved Cognition, Recognition of Peers, Socialization Other/Notes Pt propels [facility] to PT/OT Group. Group consists of Introductions (Name, Where Living & Favorite TV Show), Socialization, Seated UE & LE Exercises, Identifying Memory Strategies to improve Short Term Memory in hospital and at home as well a s activity to implement these strategies. Pt actively participated in Group by giving personal suggestions of memory strategies used and completing exercises. Pt matched 1 set of pictures during Memory Activity. Pt propelled [facility] back to room at end of Group to rest Supine in bed, transferred SPT at [facility] with all needs met. Start Time: 13:00 Stop Time: 14:10 Total Billed Treatment Time: 70 Total Billed Treatment 1, GRP (70m) HANANE IVORY JOINERY PATTERNMAKER May 19, 2020 14:45
[2020-05-19] MEDS ORDERED: MAGNESIUM CITRATE 300 ML BTL PO NR (16:00)
[2020-05-19 18:00] VITALS: BP 98/50
[2020-05-19] MEDS: MELATONIN 3 MG TABLET PO PRN (21:26)
[2020-05-19] MEDS: SENNOSIDES 8.6 MG (SENOKOT) TAB PO SCH (21:26)
[2020-05-19] MEDS: MONTELUKAST 10 MG (SINGULAIR) TAB PO SCH (21:27)
[2020-05-19] MEDS: LIDOCAINE PATCH REMOVAL TP SCH (21:33)
[2020-05-20] MEDS: LEVOTHYROXINE 100 MCG (LEVOTHROID) TAB PO SCH (05:23)
[2020-05-20] MEDS: CARISOPRODOL 350 MG (SOMA) TAB PO PRN ×3 (05:24→18:05)
[2020-05-20 06:00] VITALS: BP 109/55
[2020-05-20] MEDS: inSUlin ASPART (NovoLOG) 1 UNIT/0.01 ML (CHARGE PER UNIT) SC SCH ×4 (06:13→21:26)
[2020-05-20] MEDS: ADVAIR HFA 115/21 MCG INHALER 8 GM IH SCH ×2 (07:28→20:20)
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
--- NOTE | 2020-05-20 09:15 | Occupational Ther Daily Note ---
OT Current Status-Daily Note Subjective Pt seated in w/c, agreeable to OT Tx. Pt did not verbalize pain rating. Mental Status/Objective Patient Orientation: Person, Place, Time, Situation ADL-Treatment Therapy Code Descriptions/Definitions Functional [place] Measure: 0=Not Assessed/NA 4=Minimal Assistance 1=Total Assistance 5=Supervision or Setup 2=Maximal Assistance 6=Modified [place] 3=Moderate Assistance 7=Complete IndependenceSCALE: Activities may be completed with or without assistive devices. 3-Jqghsncvfo-vbkebuw completes the activity by him/herself with no assistance from a helper. 5-Set-up or Clean-up Assistance-helper sets up or cleans up; patient completes activity. [place] assists only prior to or following the activity. 4-Supervision or Touching Assistance-helper provides verbal cues and/or touching/steadying and/or contact guard assistance as patient completes activity. Assistance may be provided throughout the activity or intermittently. 3-Partial/Moderate Assistance-helper does LESS THAN HALF the effort. [place] lifts, holds or supports trunk or limbs, but provides less than half the effort. 2-Substantial/Maximal Assistance-helper does MORE THAN HALF the effort. [place] lifts or holds trunk or limbs and provides more than half the effort. 3-Mlddhyzua-nzysbf does ALL the effort. Patient does none of the effort to complete the activity. Or, the assistance of 2 or more helpers is required for the patient to complete the activity. If activity was not attempted, code reason: 7-Patient Refused. 9-Not Applicable-not attempted and the patient did not perform the activity before the current illness, exacerbation or injury. 10-Not Attempted due to Environmental Limitations-(lack of equipment, weather restraints, etc.). 88-Not Attempted due to Medical Conditions or Safety Concerns. Oral Hygiene (QC): 5 (set up) Upper Body Dressing (QC): 5 (set up) Lower Body Dressing (QC): 1 (Pt required assistance threading BLEs into pants, and assist x2 for managing pants up) Other Treatment [id number] cotreat: Pt. agrees to work with OT/PT for co-treatment due to the skill of 2 clinicians required which a facility rehab director could not perform secondary to fatigue, weakness, and decreased processing. OT addresses ADL tx, UE movement, sequencing, problem solving; PT addresses LE movement, fx transfers, balance. Pt completed dressing at w/c level, assist x2 during sink maker order to manage pants up, 1 person to focus on stand while another assist with clothing. Pt then self- propelled w/c to therapy gym. Pt completed SB transfer from w/c to mat. In order to increase UE strength, functional endurance, and functional sit to stand transfers, pt completed x10 reps, 3 sets of sit to stand transfers at edge of mat. Pt required cues for hand positioning in order to push up from mat for safety, and cues to maintain NWB status of RLE, and NWB statues L hand. Pt required a seated rest break between each set. Pt reports fatigue in UE/LE with task. Pt also completed 1 standing trial of ~3 mins, with cues for NWB. Pt transferred from mat back to w/c, assistance with placement of board and cues for sequencing and maintaining NWB. Pt self-propelled w/c back to her room, transferring to bed via SB. Pt required min A sit to supine for assistance with LEs. [id number] OT tx: Pt laying in bed, OT assisted pt with positioning and elevating HOB for ADL tasks. Pt able to brush her teeth at tray table with set up/clean up assistance. She washed her face with set up and independently combed her hair. Pt reports being unable to connect her tablet to her phones wifi, OT assisted pt with sequencing of task and problem solving the steps to assist pt with comp leting task again successfully later in the day. Pt able to complete problem solving with moderate verbal cues. Post OT tx, pt laying in bed, call light in reach and all needs met. Education OT Patient Education: Correct positioning, Modified ADL techniques, Progress toward Goal/Update tx plan, Purpose of tx/functional activities, Safety issues, Transfer techniques, W/C management Teaching Recipient: Patient Teaching Methods: Discussion Response to Teaching: Verbalize Understanding OT Short Term Goals Short Term Goals Time Frame: May 24, 2020 Shower/bathe self: 3 Lower body dressin Putting on/taking off footwear: 3 OT Seal Skinner Goals Custodial Goals Time Frame: Jun 03, 2020 Eating (QC): 6 Oral Hygiene (QC): 6 Toileting Hygiene (QC): 6 Shower/Bathe Self (QC): 6 Upper Body Dressing (QC): 6 Lower Body Dressing (QC): 6 On/Off Footwear (QC): 6 Additional Goals: 1-Demonstrate ADL Tasks, 2-Verbalize Understanding, 3- ImproveStrength/Jameel 1=Demonstrate adherence to instructed precautions during ADL tasks. 2=Patient will verbalize/demonstrate understanding of assistive devices/modifications for ADL. 3=Patient will improve strength/tolerance for activity to enable patient to perform ADL's. OT Education/Plan Problem List/Assessment Assessment: Decreased Activ Tolerance, Decreased UE Strength, Impaired Bed Mobility, Impaired Funct Balance, Impaired I ADL's, Impaired Self-Care Skills Discharge Recommendations Plan/Recommendations: Continue POC Treatment Plan/Plan of Care Patient would benefit from OT for education, treatment and training to promote independence in ADL's, mobility, safety and/or upper extremity function for ADL's. Plan of Care: ADL Retraining, Functional Mobility, Group Exercise/Act as Ind, UE Funct Exercise/Act, W/C Management Training Treatment Duration: Jun 03, 2020 Frequency: Modified Program (IRF) (24/03) Estimated Hrs Per Day: 1.5 hours per day Agreement: Yes Rehab Potential: Fair Time/GCodes Start Time: 08:00 Stop Time: 09:15 Total Time Billed (hr/min): 75 Billed Treatment Time OT/PT cotreat x60 mins, [id number] OT tx x15 mins, [id number] 1, FA 4 (60'), ADL (15') JUAN JOSE BREWSTER OT May 20, 2020 09:15
--- NOTE | 2020-05-20 09:16 | Physical Therapy Daily Note ---
PT Daily Note-Current Subjective Pt presents upright in wheelchair. Pt agrees to therapy. Pt reports burning sensation in R hip is still present. Appearance After PT treatment pt is assisted to supine in bed. Pt is left with OT in room to concluded session. Mental Status Patient Orientation: Person, Place, Time, Situation, [place] Transfers SCALE: Activities may be completed with or without assistive devices. 3-Igyozdssrk-pylwuwx completes the activity by him/herself with no assistance from a helper. 5-Set-up or Clean-up Assistance-helper sets up or cleans up; patient completes activity. [place] assists only prior to or following the activity. 4-Supervision or Touching Assistance-helper provides verbal cues and/or touching/steadying and/or contact guard assistance as patient completes activity. Assistance may be provided throughout the activity or intermittently. 3-Partial/Moderate Assistance-helper does LESS THAN HALF the effort. [place] lifts, holds or supports trunk or limbs, but provides less than half the effort. 2-Substantial/Maximal Assistance-helper does MORE THAN HALF the effort. [place] lifts or holds trunk or limbs and provides more than half the effort. 7-Jbliupsdr-mxqjlg does ALL the effort. Patient does none of the effort to complete the activity. Or, the assistance of 2 or more helpers is required for the patient to complete the activity. If activity was not attempted, code reason: 7-Patient Refused. 9-Not Applicable-not attempted and the patient did not perform the activity before the current illness, exacerbation or injury. 10-Not Attempted due to Environmental Limitations-(lack of equipment, weather restraints, etc.). 88-Not Attempted due to Medical Conditions or Safety Concerns. Sit to Lying (QC): 3 Sit to Stand (QC): 3 Chair/Jtj-ol-Njbwl Xfer(QC): 4 (Slide board) Weight Bearing Right Lower Extremity: Right Non Weight Bearing Wheelchair Training Does the Pt Use a Wheelchair?: Yes Wheel 50 ft with 2 turns (QC): 4 Wheel 150 ft (QC): 4 Type of Wheelchair: Manual 150' x2 Exercises Seated Therapy Exercises: Long arc quads, Hip flexion Seated Reps: 20 Standing: Sit to Stand (3x10) Standing Reps: 30 Treatments Focus on transfers Assessment Current Status: Good Progress Co-treated with OT due to limitations in strength, transfers, NWB precautions, L hand precautions, and need to coordinate UE and LE. Pt has improved her transfers using slide board and tbq-ss-ugngs with UE support. Pt appears non- compliant with NWB precautions for R foot. PT Short Term Goals Short Term Goals Time Frame: May 20, 2020 Roll Left & Right: 3 Sit to lyin Lying to sitting on side of be: 3 Sit to stand: 3 Chair/ril-xi-tvxfr transfer: 3 PT Skilled Nursing Goals Item Processing Clerk Goals PT Item Processing Clerk Goals Time Frame: Jun 03, 2020 Roll Left & Right (QC): 4 Sit to Lying (QC): 4 Lying-Sitting on Side/Bed(QC): 4 Sit to Stand (QC): 4 Chair/Rhe-cx-Htobg Xfer(QC): 4 Toilet Transfer (QC): 4 Car Transfer (QC): 3 Does the Patient Walk: No and Walking Goal IS indicated Walk 10 feet (QC): 3 Walk 50ft with 2 Turns (QC): 3 Walk 150 ft (QC): 88 Walking 10ft on Uneven Surface: 3 1 Step (curb) (QC): 3 4 Steps (QC): 88 12 Steps (QC): 88 Picking up an Object (QC): 88 Wheel 50 feet with 2 turns (QC: 6 Wheel 150 feet: 6 PT Plan Problem List Problem List: Activity Tolerance, Functional Strength, Safety, Balance, Gait, Transfer, Bed Mobility, ROM Treatment/Plan Treatment Plan: Continue Plan of Care Treatment Plan: Bed Mobility, Education, Functional Activity Jameel, Functional Strength, Group Therapy, Gait, Safety, Therapeutic Exercise, Transfers Treatment Duration: Jun 03, 2020 Frequency: Modified Program (IRF) (24/03) Estimated Hrs Per Day: 1.5 hours per day Patient and/or Family Agrees t: Yes Safety Risks/Education Patient Education: Transfer Techniques, Reviewed Precautions, Correct Positioning, W/C Management, Safety Issues Teaching Recipient: Patient Teaching Methods: Demonstration, Discussion Response to Teaching: Reinforcement Needed Time/GCodes Time In: 0800 Time Out: 0900 Total Billed Treatment Time: 60 Total Billed Treatment 1 visit FA 40' EX 20' ARYA RIGGS PT May 20, 2020 09:16
[2020-05-20 09:17] VITALS: BP 103/57
[2020-05-20] MEDS: LACTOBACILLUS ACIDOPHILUS (PROBIOTIC) CAPSULE PO SCH ×2 (09:17→21:26)
[2020-05-20] MEDS: OMEGA 3 (FISH OIL) 1000 MG CAP PO SCH (09:18)
[2020-05-20] MEDS: ASPIRIN E.C. 81 MG (ECOTRIN) TAB PO SCH (09:18)
[2020-05-20] MEDS: LEVETIRACETAM 500 MG (KEPPRA) TAB PO SCH ×2 (09:18→21:26)
[2020-05-20] MEDS: PREGABALIN 100 MG (LYRICA) CAPSULE PO SCH ×2 (09:18→21:26)
[2020-05-20] MEDS: CALCIUM CARB + VIT D 600 MG (CALCARB + D) TAB PO SCH (09:18)
[2020-05-20] MEDS: DOCUSATE SODIUM 100 MG (COLACE) CAP PO SCH ×2 (09:24→21:26)
[2020-05-20] MEDS: LIDOCAINE 4% (SALONPAS) PATCH TP SCH (09:24)
[2020-05-20] MEDS: polyethylene glycoL POWDER 17 GM (MIRALAX) PACK PO SCH (09:24)
[2020-05-20] MEDS: ENOXAPARIN 30 MG/0.3 ML (LOVENOX) SYR SQ SCH ×2 (09:25→20:33)
[2020-05-20] MEDS: PANTOPRAZOLE 40 MG (PROTONIX) TAB PO SCH (09:26)
[2020-05-20 09:41] VITALS: BP 111/59
[2020-05-20] MEDS: LOSARTAN 100 MG (COZAAR) TABLET PO SCH (09:43)
--- NOTE | 2020-05-20 11:09 | NUR ---
Call placed to , for consult. States that Trish Bates will see pt tomorrow between 2-3.
--- NOTE | 2020-05-20 11:36 | Physical Therapy Daily Note ---
PT Daily Note-Current Subjective Patient request toilet use. Incontinent urine. Mental Status Patient Orientation: Person, Time, Situation Transfers SCALE: Activities may be completed with or without assistive devices. 2-Ugelgjmamx-uepxdpm completes the activity by him/herself with no assistance from a helper. 5-Set-up or Clean-up Assistance-helper sets up or cleans up; patient completes activity. [place] assists only prior to or following the activity. 4-Supervision or Touching Assistance-helper provides verbal cues and/or jenny galen/steadying and/or contact guard assistance as patient completes activity. Assistance may be provided throughout the activity or intermittently. 3-Partial/Moderate Assistance-helper does LESS THAN HALF the effort. [place] lifts, holds or supports trunk or limbs, but provides less than half the effort. 2-Substantial/Maximal Assistance-helper does MORE THAN HALF the effort. [place] lifts or holds trunk or limbs and provides more than half the effort. 0-Plijtrkfd-fmzfke does ALL the effort. Patient does none of the effort to complete the activity. Or, the assistance of 2 or more helpers is required for the patient to complete the activity. If activity was not attempted, code reason: 7-Patient Refused. 9-Not Applicable-not attempted and the patient did not perform the activity before the current illness, exacerbation or injury. 10-Not Attempted due to Environmental Limitations-(lack of equipment, weather restraints, etc.). 88-Not Attempted due to Medical Conditions or Safety Concerns. Roll Left & Right (QC): 5 Lying to Sitting/Side of Bed(Q: 5 Sit to Stand (QC): 2 Chair/Iew-rw-Tvfyn Xfer(QC): 2 Toilet Transfer (QC): 2 noncompliant with NWB left LE with sit to stand and SPT. x 3 sets Weight Bearing Right Lower Extremity: Right Non Weight Bearing Assessment Patient incontinent requiring dependent assist to cleanse and change. Patient continues to be noncompliant with NWB left LE. PT Short Term Goals Short Term Goals Time Frame: May 20, 2020 Roll Left & Right: 3 Sit to lyin Lying to sitting on side of be: 3 Sit to stand: 3 Chair/xwj-mm-jenny transfer: 3 PT [facility] Goals Manager Critical Care Goals PT Manager Critical Care Goals Time Frame: Jun 03, 2020 Roll Left & Right (QC): 4 Sit to Lying (QC): 4 Lying-Sitting on Side/Bed(QC): 4 Sit to Stand (QC): 4 Chair/Aht-lx-Ultdx Xfer(QC): 4 Toilet Transfer (QC): 4 Car Transfer (QC): 3 Does the Patient Walk: No and Walking Goal IS indicated Walk 10 feet (QC): 3 Walk 50ft with 2 Turns (QC): 3 Walk 150 ft (QC): 88 Walking 10ft on Uneven Surface: 3 1 Step (curb) (QC): 3 4 Steps (QC): 88 12 Steps (QC): 88 Picking up an Object (QC): 88 Wheel 50 feet with 2 turns (QC: 6 Wheel 150 feet: 6 PT Plan Treatment/Plan Treatment Plan: Continue Plan of Care Treatment Plan: Bed Mobility, Education, Functional Activity Jameel, Functional Strength, Group Therapy, Gait, Safety, Therapeutic Exercise, Transfers Treatment Duration: Jun 03, 2020 Frequency: Modified Program (IRF) (24/03) Estimated Hrs Per Day: 1.5 hours per day Patient and/or Family Agrees t: Yes Time/GCodes Time In: 1115 Time Out: 1130 Total Billed Treatment Time: 15 Total Billed Treatment 1 visit FA 15 min SAHRA CHADWICK PT May 20, 2020 11:36
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
[2020-05-20] MEDS: ONDANSETRON 4 MG (ZOFRAN) ORAL DISSOLVE TAB PO PRN (15:41)
[2020-05-20 17:10] VITALS: BP 122/59
[2020-05-20] MEDS: MONTELUKAST 10 MG (SINGULAIR) TAB PO SCH (21:26)
[2020-05-20] MEDS: SENNOSIDES 8.6 MG (SENOKOT) TAB PO SCH (21:27)
[2020-05-20] MEDS: LIDOCAINE PATCH REMOVAL TP SCH (21:27)
[2020-05-21] MEDS: CARISOPRODOL 350 MG (SOMA) TAB PO PRN ×4 (00:22→23:55)
[2020-05-21] MEDS: LEVOTHYROXINE 100 MCG (LEVOTHROID) TAB PO SCH (05:24)
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
[2020-05-21] MEDS: inSUlin ASPART (NovoLOG) 1 UNIT/0.01 ML (CHARGE PER UNIT) SC SCH ×4 (06:04→20:23)
[2020-05-21 06:05] VITALS: BP 115/60
[2020-05-21 06:24] LABS: HEMOGLOBIN 8.6 G/DL (11.5-16.0); MEAN PLATELET VOLUME 11.1 FL (7.4-10.4); WHITE BLOOD COUNT 5.5 10^3/uL (4.3-11.0)
[2020-05-21] MEDS: ADVAIR HFA 115/21 MCG INHALER 8 GM IH SCH ×2 (07:35→19:05)
[2020-05-21] MEDS: LEVETIRACETAM 500 MG (KEPPRA) TAB PO SCH (07:50)
[2020-05-21] MEDS: PREGABALIN 100 MG (LYRICA) CAPSULE PO SCH ×2 (07:50→20:08)
[2020-05-21] MEDS: DIAZEPAM 5 MG (VALIUM) TABLET PO PRN ×2 (07:50→20:08)
[2020-05-21] MEDS: PANTOPRAZOLE 40 MG (PROTONIX) TAB PO SCH (07:50)
[2020-05-21] MEDS: ASPIRIN E.C. 81 MG (ECOTRIN) TAB PO SCH (07:50)
[2020-05-21] MEDS: LOSARTAN 100 MG (COZAAR) TABLET PO SCH (07:50)
[2020-05-21] MEDS: CALCIUM CARB + VIT D 600 MG (CALCARB + D) TAB PO SCH (07:50)
[2020-05-21] MEDS: LACTOBACILLUS ACIDOPHILUS (PROBIOTIC) CAPSULE PO SCH ×2 (07:50→20:08)
[2020-05-21] MEDS: DOCUSATE SODIUM 100 MG (COLACE) CAP PO SCH ×2 (07:50→20:08)
[2020-05-21] MEDS: OMEGA 3 (FISH OIL) 1000 MG CAP PO SCH (07:50)
[2020-05-21] MEDS: LIDOCAINE 4% (SALONPAS) PATCH TP SCH (07:52)
[2020-05-21] MEDS: ENOXAPARIN 30 MG/0.3 ML (LOVENOX) SYR SQ SCH ×2 (07:52→20:07)
[2020-05-21 07:57] VITALS: BP 116/56
[2020-05-21] MEDS: polyethylene glycoL POWDER 17 GM (MIRALAX) PACK PO SCH (07:57)
--- NOTE | 2020-05-21 08:56 | Physical Therapy Daily Note ---
PT Daily Note-Current Subjective Pt present upright in WC. Pt reports no prominent pain. Pt agrees to PT/OT tx. Appearance After PT tx patient is left upright in WC by patient request. Pt has access to call button. Pt is left with nurse and OT in room to change dressing. Mental Status Patient Orientation: Person, Place, Time, Eyes Open, Situation, [place] Transfers SCALE: Activities may be completed with or without assistive devices. 0-Ifraahtkub-gerdwbe completes the activity by him/herself with no assistance f rom a helper. 5-Set-up or Clean-up Assistance-helper sets up or cleans up; patient completes activity. [place] assists only prior to or following the activity. 4-Supervision or Touching Assistance-helper provides verbal cues and/or touching/steadying and/or contact guard assistance as patient completes activity. Assistance may be provided throughout the activity or intermittently. 3-Partial/Moderate Assistance-helper does LESS THAN HALF the effort. [place] lifts, holds or supports trunk or limbs, but provides less than half the effort. 2-Substantial/Maximal Assistance-helper does MORE THAN HALF the effort. [place] lifts or holds trunk or limbs and provides more than half the effort. 9-Yhbvafyfw-xrhvdu does ALL the effort. Patient does none of the effort to complete the activity. Or, the assistance of 2 or more helpers is required for the patient to complete the activity. If activity was not attempted, code reason: 7-Patient Refused. 9-Not Applicable-not attempted and the patient did not perform the activity before the current illness, exacerbation or injury. 10-Not Attempted due to Environmental Limitations-(lack of equipment, weather restraints, etc.). 88-Not Attempted due to Medical Conditions or Safety Concerns. Sit to Stand (QC): 3 Chair/Rkl-oz-Hqkyx Xfer(QC): 3 Weight Bearing Right Lower Extremity: Right Non Weight Bearing Gait Training Does the Patient Walk?: No and Walking Goal IS indicated Exercises Seated Therapy Exercises: Ankle pumps (LLE), Long arc quads, Hip flexion, Hip abd/add Seated Reps: 20 Attempted toe curls on R foot, this caused irritation in heel/ankle. Treatments Transfers and bathing Assessment Current Status: Fair Progress Co-treated with OT due to patient's limitation in strength, ROM, endurance, and transfers. OT focused on bathing and dressing while PT focused on transfers and LE exercises. Pt requires moderate assistance and encouragement to stand for pivot transfers. Pt continues to improve slide-board transfers with assistance needed for chair and board set-up along with verbal cues. PT Short Term Goals Short Term Goals Time Frame: May 20, 2020 Roll Left & Right: 3 Sit to lyin Lying to sitting on side of be: 3 Sit to stand: 3 Chair/fel-ek-jlwgx transfer: 3 PT Half-Way Goals Otr Driver Goals PT Otr Driver Goals Time Frame: Jun 03, 2020 Roll Left & Right (QC): 4 Sit to Lying (QC): 4 Lying-Sitting on Side/Bed(QC): 4 Sit to Stand (QC): 4 Chair/Tko-hi-Skuvg Xfer(QC): 4 Toilet Transfer (QC): 4 Car Transfer (QC): 3 Does the Patient Walk: No and Walking Goal IS indicated Walk 10 feet (QC): 3 Walk 50ft with 2 Turns (QC): 3 Walk 150 ft (QC): 88 Walking 10ft on Uneven Surface: 3 1 Step (curb) (QC): 3 4 Steps (QC): 88 12 Steps (QC): 88 Picking up an Object (QC): 88 Wheel 50 feet with 2 turns (QC: 6 Wheel 150 feet: 6 PT Plan Problem List Problem List: Activity Tolerance, Functional Strength, Safety, Balance, Gait, Transfer, Bed Mobility, ROM Treatment/Plan Treatment Plan: Continue Plan of Care Treatment Plan: Bed Mobility, Education, Functional Activity Jameel, Functional Strength, Group Therapy, Gait, Safety, Therapeutic Exercise, Transfers Treatment Duration: Jun 03, 2020 Frequency: Modified Program (IRF) (24/03) Estimated Hrs Per Day: 1.5 hours per day Patient and/or Family Agrees t: Yes Safety Risks/Education Patient Education: Transfer Techniques, Reviewed Precautions, Correct Positioning, W/C Management, Safety Issues Teaching Recipient: Patient Teaching Methods: Demonstration, Discussion Response to Teaching: Reinforcement Needed Time/GCodes Time In: 0800 Time Out: 0900 Total Billed Treatment Time: 60 Total Billed Treatment 1 visit FA 45' EX 15' ARYA RIGGS PT May 21, 2020 08:56
--- NOTE | 2020-05-21 09:25 | Occupational Ther Daily Note ---
OT Current Status-Daily Note Subjective Pt seated in recliner, agreeable to OT/PT cotreat, requests shower on this date. Pt did not verbalize pain during tx. ADL-Treatment Therapy Code Descriptions/Definitions Functional [place] Measure: 0=Not Assessed/NA 4=Minimal Assistance 1=Total Assistance 5=Supervision or Setup 2=Maximal Assistance 6=Modified [place] 3=Moderate Assistance 7=Complete IndependenceSCALE: Activities may be completed with or without assistive devices. 7-Rikghnyrid-yrxypmq completes the activity by him/herself with no assistance from a helper. 5-Set-up or Clean-up Assistance-helper sets up or cleans up; patient completes activity. [place] assists only prior to or following the activity. 4-Supervision or Touching Assistance-helper provides verbal cues and/or touching/steadying and/or contact guard assistance as patient completes activit y. Assistance may be provided throughout the activity or intermittently. 3-Partial/Moderate Assistance-helper does LESS THAN HALF the effort. [place] lifts, holds or supports trunk or limbs, but provides less than half the effort. 2-Substantial/Maximal Assistance-helper does MORE THAN HALF the effort. [place] lifts or holds trunk or limbs and provides more than half the effort. 9-Ksqmciexv-peghtm does ALL the effort. Patient does none of the effort to complete the activity. Or, the assistance of 2 or more helpers is required for the patient to complete the activity. If activity was not attempted, code reason: 7-Patient Refused. 9-Not Applicable-not attempted and the patient did not perform the activity before the current illness, exacerbation or injury. 10-Not Attempted due to Environmental Limitations-(lack of equipment, weather restraints, etc.). 88-Not Attempted due to Medical Conditions or Safety Concerns. Shower/Bathe Self (QC): 4 (SBA, pt able to wash all parts) Upper Body Dressing (QC): 5 (set up) Lower Body Dressing (QC): 1 (assist x2, 1 person to focus on stand, while 1 person assists with clothing management) On/Off Footwear: 1 (total assist donning/doffing LLE sock) Other Treatment [id number] OT/PT cotreat: OT/PT cotreat due to skill of 2 clinicians required which a animal rehabilitator could not perform in order to coordinate UE/LEs and secondary to patient's limitation in strength, ROM, endurance, and transfers. OT focused on bathing and dressing while PT focused on transfers and LE exercises. Pt seated in [facility], transferred to [place] via SPT, mod assist with encouragement. Pt doffed hospital gown and taken into the shower. Pt able to wash all parts of shower with increased time, washing all parts, min cues for safety. Pt then dried and completed dressing. 2 person assist required for lower body dressing, 1 person focusing on standing while 1 person managed clothing up. Pt requested to sit in w/c. Pt transferred from WA to [facility] via SB transfer, assistance with board placement, and cues for sequencing, safety, and UE/LE placement with task. Pt then performed LE exercises as OT cleaned up from ADL tx. Pt's nurse present to change pt's dressing. Throughout session, pt had difficulty maintaining RLE NWB. Post OT tx, pt seated upright in w/, call light in reach and all needs met . Education OT Patient Education: Correct positioning, Energy conservation, Modified ADL techniques, Progress toward Goal/Update tx plan, Purpose of tx/functional activities, Safety issues, Transfer techniques Teaching Recipient: Patient Teaching Methods: Discussion Response to Teaching: Verbalize Understanding OT Short Term Goals Short Term Goals Time Frame: May 24, 2020 Shower/bathe self: 3 Lower body dressin Putting on/taking off footwear: 3 OT Intermediate Goals Hotel Staff Member Goals Time Frame: Jun 03, 2020 Eating (QC): 6 Oral Hygiene (QC): 6 Toileting Hygiene (QC): 6 Shower/Bathe Self (QC): 6 Upper Body Dressing (QC): 6 Lower Body Dressing (QC): 6 On/Off Footwear (QC): 6 Additional Goals: 1-Demonstrate ADL Tasks, 2-Verbalize Understanding, 3- ImproveStrength/Jameel 1=Demonstrate adherence to instructed precautions during ADL tasks. 2=Patient will verbalize/demonstrate understanding of assistive devices/modifications for ADL. 3=Patient will improve strength/tolerance for activity to enable patient to perform ADL's. OT Education/Plan Problem List/Assessment Assessment: Decreased Activ Tolerance, Decreased UE Strength, Impaired Funct Balance, Impaired I ADL's, Impaired Self-Care Skills, Restricted Funct UE ROM Discharge Recommendations Plan/Recommendations: Continue POC Treatment Plan/Plan of Care Patient would benefit from OT for education, treatment and training to promote independence in ADL's, mobility, safety and/or upper extremity function for ADL's. Plan of Care: ADL Retraining, Functional Mobility, Group Exercise/Act as Ind, UE Funct Exercise/Act, W/C Management Training Treatment Duration: Jun 03, 2020 Frequency: Modified Program (IRF) (24/03) Estimated Hrs Per Day: 1.5 hours per day Agreement: Yes Rehab Potential: Fair Time/GCodes Start Time: 08:00 Stop Time: 09:00 Total Time Billed (hr/min): 60 Billed Treatment Time OT/PT cotreat x60 mins 1, ADL 4 JUAN JOSE BREWSTER OT May 21, 2020 09:25
--- NOTE | 2020-05-21 10:50 | NUR ---
PER STEPHEN DISCHARGE PAPERWORK, DANIEL D/C KRISSY ON 05/18/20 PER NEUROSURGERY IF PATIENT DOES NOT HAVE ANY SEIZURES. DR. TORRES INFORMED AND OK TO FELIPE.
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
--- NOTE | 2020-05-21 15:00 | NUR ---
LOKI LUNA HERE FOR BEHAVIORAL HEALTH CONSULT. RECOMMENDS ANTIDEPRESSANT AND TO F/U AT THE [facility] IN [facility]. STATES, WILL CALL DR. TORRES TO DISCUSS RECOMMENDATIONS.
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
--- NOTE | 2020-05-21 15:20 | Therapy Group Daily Note ---
Therapy Daily Group Note Patient Education Topic Exercises Exercises LE Seated Exercise, UE Exercise Session Ratio (pt:therapist): 4:1 Goal of Session: UE/LE Strengthing Goal Met for this Session: Yes Pt Benefit of Group: Contributions to Others, Increased Functional Strength, Recognition of Peers, Socialization Other/Notes Pt presents to OT/PT group via wheelchair that required min assistance to propel. OT/PT group included introductions, socialization, seated UE/LE exercises, benefits of exercises education, and gross motor group activity. Pt was able to introduce self and interact with peers; pt participated in exercises as well as group activity. Pt modified LE exercises to LLE only due to casting of RLE. Pt shared personal story of how she exercised at home as a way to participate in educational parts of OT/PT group therapy. Pt interacted with peer sitting beside her via conversation and those nearby her via catch with balloon. Pt returned to room by being pushed in wheelchair by PT, pt has access to tray, call button, all needs have been met and son was in room. Start Time: 13:00 Stop Time: 14:00 Total Billed Treatment Time: 60 Total Billed Treatment 1, group ARYA RIGGS PT May 21, 2020 15:20
[2020-05-21 17:17] VITALS: BP 103/51
--- NOTE | 2020-05-21 19:04 | NUR ---
bedside report received from RODNEY CHAIDEZ, assume care of pt
--- NOTE | 2020-05-21 19:39 | NUR ---
c/o pain to rt leg level 7/10 on numeric scale, oxyir 5mg given
[2020-05-21] MEDS: MONTELUKAST 10 MG (SINGULAIR) TAB PO SCH (20:08)
[2020-05-21] MEDS: SENNOSIDES 8.6 MG (SENOKOT) TAB PO SCH (20:08)
[2020-05-21] MEDS: LIDOCAINE PATCH REMOVAL TP SCH (20:14)
--- NOTE | 2020-05-21 20:23 | NUR ---
fsbs 239, scheduled Levemir given NovoLog 6 units given
--- NOTE | 2020-05-21 20:23 | NUR ---
rates pain level 5/10 on numeric scale, requests Valium 10mg given
--- NOTE | 2020-05-21 23:55 | NUR ---
c/o rt leg pain level 7/10 on numeric scale, oxyir 5mg & soma 350mg given
--- NOTE | 2020-05-22 00:48 | NUR ---
resting quietly in bed, pain level 0/10 on CNPI SCALE
--- NOTE | 2020-05-22 04:41 | NUR ---
c/o pain to rt leg level 6/10 on numeric scale, oxyir 5mg given
--- NOTE | 2020-05-22 05:23 | NUR ---
resting quietly in bed, pain level 0/10 on CNPI SCALE
[2020-05-22 05:59] VITALS: BP 118/57
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
[2020-05-22] MEDS: inSUlin ASPART (NovoLOG) 1 UNIT/0.01 ML (CHARGE PER UNIT) SC SCH ×4 (06:00→20:40)
[2020-05-22] MEDS: CARISOPRODOL 350 MG (SOMA) TAB PO PRN ×3 (07:05→19:37)
[2020-05-22] MEDS: LEVOTHYROXINE 100 MCG (LEVOTHROID) TAB PO SCH (07:05)
--- NOTE | 2020-05-22 07:05 | NUR ---
c/o muscle spasm pain level 7/10 on numeric scale, soma 350mg given
[2020-05-22] MEDS: ADVAIR HFA 115/21 MCG INHALER 8 GM IH SCH ×2 (07:33→18:40)
[2020-05-22] MEDS: LACTOBACILLUS ACIDOPHILUS (PROBIOTIC) CAPSULE PO SCH ×2 (09:10→19:36)
[2020-05-22] MEDS: PANTOPRAZOLE 40 MG (PROTONIX) TAB PO SCH (09:10)
[2020-05-22] MEDS: ASPIRIN E.C. 81 MG (ECOTRIN) TAB PO SCH (09:10)
[2020-05-22] MEDS: LOSARTAN 100 MG (COZAAR) TABLET PO SCH (09:10)
[2020-05-22] MEDS: OMEGA 3 (FISH OIL) 1000 MG CAP PO SCH (09:10)
[2020-05-22] MEDS: CALCIUM CARB + VIT D 600 MG (CALCARB + D) TAB PO SCH (09:11)
[2020-05-22] MEDS: ENOXAPARIN 30 MG/0.3 ML (LOVENOX) SYR SQ SCH ×2 (09:11→19:35)
[2020-05-22] MEDS: PREGABALIN 100 MG (LYRICA) CAPSULE PO SCH ×2 (09:11→19:36)
[2020-05-22] MEDS: LIDOCAINE 4% (SALONPAS) PATCH TP SCH (09:11)
[2020-05-22] MEDS: DIAZEPAM 5 MG (VALIUM) TABLET PO PRN ×2 (09:16→21:06)
[2020-05-22] MEDS: DOCUSATE SODIUM 100 MG (COLACE) CAP PO SCH ×2 (09:17→19:36)
[2020-05-22] MEDS: polyethylene glycoL POWDER 17 GM (MIRALAX) PACK PO SCH (09:17)
--- NOTE | 2020-05-22 09:36 | Physical Therapy Daily Note ---
PT Daily Note-Current Subjective Pt up in w/c upon arrival. Pt agrees to PT tx. Pain Numeric Pain Scale: 0-No Pain Location: No Pain Reported Comment: Pt c/o that pain in RLE was extremely bad last noc Mental Status Patient Orientation: Person, Place, Time, Situation Transfers SCALE: Activities may be completed with or without assistive devices. 8-Wmcpxlnzjj-yfvdixs completes the activity by him/herself with no assistance from a helper. 5-Set-up or Clean-up Assistance-helper sets up or cleans up; patient completes activity. [place] assists only prior to or following the activity. 4-Supervision or Touching Assistance-helper provides verbal cues and/or touching/steadying and/or contact guard assistance as patient completes activity. Assistance may be provided throughout the activity or intermittently. 3-Partial/Moderate Assistance-helper does LESS THAN HALF the effort. [place] lifts, holds or supports trunk or limbs, but provides less than half the effort. 2-Substantial/Maximal Assistance-helper does MORE THAN HALF the effort. [place] lifts or holds trunk or limbs and provides more than half the effort. 1-Aprhpyvko-otarfi does ALL the effort. Patient does none of the effort to compl ete the activity. Or, the assistance of 2 or more helpers is required for the patient to complete the activity. If activity was not attempted, code reason: 7-Patient Refused. 9-Not Applicable-not attempted and the patient did not perform the activity before the current illness, exacerbation or injury. 10-Not Attempted due to Environmental Limitations-(lack of equipment, weather restraints, etc.). 88-Not Attempted due to Medical Conditions or Safety Concerns. Sit to Stand (QC): 3 Weight Bearing Right Lower Extremity: Right Non Weight Bearing Wheelchair Training Does the Pt Use a Wheelchair?: Yes Wheel 50 ft with 2 turns (QC): 6 Wheel 150 ft (QC): 6 Type of Wheelchair: Manual Pt self propels w/c throughout unit, in therapy gym and room using BUE's and LLE. Exercises Seated Therapy Exercises: Ankle pumps (LLE only), Sit to stand, Long arc quads (LLE only), Hip flexion (LLE only), Kicking activity (LLE only), Hamstring Curls (LLE only), Glut set Seated Reps: 15 (x2) Treatments W/C mobility and seated ex completed. Pt completes sit<>stands in therapy gym from w/c, using //bars for assistance. VC's given for proper hand placement w/ push off/return to sit. When seated ex began, pt instructed to complete certain exercises w/ BLE's, 1 at a time. Pt states, "I don't do anything w/ this right leg." Pt in room, sitting up in w/c, w/ call light and bedside table and all needs met at end of tx. Assessment Current Status: Fair Progress Pt extremely chatty. Voices concerns regarding when pt can dc from unit. Pt instructed to speak w/ Dr during rounds. PT Short Term Goals Short Term Goals Time Frame: May 20, 2020 Roll Left & Right: 3 Sit to lyin Lying to sitting on side of be: 3 Sit to stand: 3 Chair/ljy-yp-rjtcw transfer: 3 PT Operating Room Orderly Goals Mcfp Goals PT Mcfp Goals Time Frame: Jun 03, 2020 Roll Left & Right (QC): 4 Sit to Lying (QC): 4 Lying-Sitting on Side/Bed(QC): 4 Sit to Stand (QC): 4 Chair/Rfk-rc-Hxeln Xfer(QC): 4 Toilet Transfer (QC): 4 Car Transfer (QC): 3 Does the Patient Walk: No and Walking Goal IS indicated Walk 10 feet (QC): 3 Walk 50ft with 2 Turns (QC): 3 Walk 150 ft (QC): 88 Walking 10ft on Uneven Surface: 3 1 Step (curb) (QC): 3 4 Steps (QC): 88 12 Steps (QC): 88 Picking up an Object (QC): 88 Wheel 50 feet with 2 turns (QC: 6 Wheel 150 feet: 6 PT Plan Problem List Problem List: Activity Tolerance, Functional Strength, Safety, Transfer Treatment/Plan Treatment Plan: Continue Plan of Care Treatment Plan: Bed Mobility, Education, Functional Activity Jameel, Functional Strength, Group Therapy, Gait, Safety, Therapeutic Exercise, Transfers Treatment Duration: Jun 03, 2020 Frequency: Modified Program (IRF) (24/03) Estimated Hrs Per Day: 1.5 hours per day Patient and/or Family Agrees t: Yes Safety Risks/Education Patient Education: Correct Positioning, Safety Issues Teaching Recipient: Patient Teaching Methods: Discussion Response to Teaching: Verbalize Understanding, Reinforcement Needed Time/GCodes Time In: 0817 Time Out: 848 Total Billed Treatment Time: 32 Total Billed Treatment 1, EX x1 (17m), [facility] x1 (15m) DAFNE STEIN DIABETES TRAINER May 22, 2020 09:36
[2020-05-22 16:20] VITALS: BP 99/54
--- NOTE | 2020-05-22 19:24 | NUR ---
RECEIVED NEW ORDERS FROM DR. TORRES TO INCREASE PT'S SENNA, & TO START PAXIL 20 MG PO DAILY.
[2020-05-22] MEDS: MONTELUKAST 10 MG (SINGULAIR) TAB PO SCH (19:37)
[2020-05-22] MEDS: SENNA W/DOCUSATE (SENOKOT S) TABLET PO SCH (19:38)
[2020-05-22] MEDS: LIDOCAINE PATCH REMOVAL TP SCH (21:09)
[2020-05-23] MEDS: inSUlin ASPART (NovoLOG) 1 UNIT/0.01 ML (CHARGE PER UNIT) SC SCH ×4 (05:24→20:32)
[2020-05-23] MEDS: LEVOTHYROXINE 100 MCG (LEVOTHROID) TAB PO SCH (05:46)
[2020-05-23 06:00] VITALS: BP 120/61
[2020-05-23] MEDS: CARISOPRODOL 350 MG (SOMA) TAB PO PRN ×3 (06:00→23:07)
[2020-05-23] MEDS: ADVAIR HFA 115/21 MCG INHALER 8 GM IH SCH ×2 (06:39→22:42)
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
[2020-05-23] MEDS: CALCIUM CARB + VIT D 600 MG (CALCARB + D) TAB PO SCH (09:30)
[2020-05-23] MEDS: LACTOBACILLUS ACIDOPHILUS (PROBIOTIC) CAPSULE PO SCH ×2 (09:30→20:28)
[2020-05-23] MEDS: PANTOPRAZOLE 40 MG (PROTONIX) TAB PO SCH (09:30)
[2020-05-23] MEDS: PREGABALIN 100 MG (LYRICA) CAPSULE PO SCH ×2 (09:30→20:28)
[2020-05-23] MEDS: LOSARTAN 100 MG (COZAAR) TABLET PO SCH (09:30)
[2020-05-23] MEDS: OMEGA 3 (FISH OIL) 1000 MG CAP PO SCH (09:30)
[2020-05-23] MEDS: ASPIRIN E.C. 81 MG (ECOTRIN) TAB PO SCH (09:30)
[2020-05-23] MEDS: DOCUSATE SODIUM 100 MG (COLACE) CAP PO SCH ×2 (09:30→20:29)
[2020-05-23] MEDS: polyethylene glycoL POWDER 17 GM (MIRALAX) PACK PO SCH (09:31)
[2020-05-23] MEDS: LIDOCAINE 4% (SALONPAS) PATCH TP SCH (09:31)
[2020-05-23] MEDS: SENNA W/DOCUSATE (SENOKOT S) TABLET PO SCH ×2 (09:31→20:29)
[2020-05-23] MEDS: ENOXAPARIN 30 MG/0.3 ML (LOVENOX) SYR SQ SCH ×2 (09:32→20:28)
[2020-05-23] MEDS: PARoxetine 20 MG (PAXIL) TAB PO SCH (09:40)
[2020-05-23] MEDS: DIAZEPAM 5 MG (VALIUM) TABLET PO PRN ×2 (09:40→23:07)
[2020-05-23 17:11] VITALS: BP 128/59
[2020-05-23] MEDS: MONTELUKAST 10 MG (SINGULAIR) TAB PO SCH (20:29)
[2020-05-23] MEDS: LIDOCAINE PATCH REMOVAL TP SCH (20:37)
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
[2020-05-24 06:00] VITALS: BP 134/72
[2020-05-24 06:00] LABS: BASOPHILS % (AUTO) 0 % (0-10); EOSINOPHILS # (AUTO) 0.3 10^3/uL (0.0-0.3); EOSINOPHILS % (AUTO) 7 % (0-10); HEMATOCRIT 30 % (35-52); HEMOGLOBIN 9.4 G/DL (11.5-16.0); LYMPHOCYTES # (AUTO) 1.3 X 10^3 (1.0-4.0); LYMPHOCYTES % (AUTO) 27 % (12-44); MEAN CORPUSCULAR HGB CONC 31 G/DL (32-36); MEAN CORPUSCULAR VOLUME 95 FL (80-99); MEAN PLATELET VOLUME 10.2 FL (7.4-10.4); MONOCYTES # (AUTO) 0.5 X 10^3 (0.0-1.0); MONOCYTES % (AUTO) 10 % (0-12); NEUTROPHILS # (AUTO) 2.7 X 10^3 (1.8-7.8); NEUTROPHILS % (AUTO) 55 % (42-75); PLATELET COUNT 228 10^3/uL (130-400); WHITE BLOOD COUNT 4.9 10^3/uL (4.3-11.0)
[2020-05-24 06:02] LABS: MEAN CORPUSCULAR HEMOGLOBIN 29 PG (25-34)
[2020-05-24] MEDS: LEVOTHYROXINE 100 MCG (LEVOTHROID) TAB PO SCH (06:03)
[2020-05-24 06:12] LABS: ALBUMIN 3.4 GM/DL (3.2-4.5); CHLORIDE 104 MMOL/L (98-107); POTASSIUM 3.8 MMOL/L (3.6-5.0); SODIUM 139 MMOL/L (135-145)
[2020-05-24 06:14] LABS: CALCIUM 8.6 MG/DL (8.5-10.1)
[2020-05-24 06:15] LABS: GLUCOSE 132 MG/DL (70-105); TOTAL PROTEIN 6.6 GM/DL (6.4-8.2)
[2020-05-24 06:16] LABS: CARBON DIOXIDE 26 MMOL/L (21-32)
[2020-05-24 06:17] LABS: BILIRUBIN,TOTAL 0.5 MG/DL (0.1-1.0)
[2020-05-24] MEDS: inSUlin ASPART (NovoLOG) 1 UNIT/0.01 ML (CHARGE PER UNIT) SC SCH ×4 (06:17→20:23)
[2020-05-24 06:18] LABS: ALKALINE PHOSPHATASE 159 U/L (40-136); CREATININE SERUM 0.75 MG/DL (0.60-1.30); GFR ESTIMATED > 60
[2020-05-24 06:19] LABS: BUN/CREATININE RATIO 15
[2020-05-24 06:21] LABS: ALANINE AMINOTRANSFERASE 21 U/L (0-55)
[2020-05-24] MEDS: ADVAIR HFA 115/21 MCG INHALER 8 GM IH SCH ×2 (07:04→20:16)
[2020-05-24] MEDS: PARoxetine 20 MG (PAXIL) TAB PO SCH (08:03)
[2020-05-24] MEDS: DOCUSATE SODIUM 100 MG (COLACE) CAP PO SCH ×2 (08:03→20:10)
[2020-05-24] MEDS: ENOXAPARIN 30 MG/0.3 ML (LOVENOX) SYR SQ SCH ×2 (08:04→20:09)
[2020-05-24] MEDS: OMEGA 3 (FISH OIL) 1000 MG CAP PO SCH (08:04)
[2020-05-24] MEDS: SENNA W/DOCUSATE (SENOKOT S) TABLET PO SCH ×2 (08:04→20:11)
[2020-05-24] MEDS: LOSARTAN 100 MG (COZAAR) TABLET PO SCH (08:05)
[2020-05-24] MEDS: CALCIUM CARB + VIT D 600 MG (CALCARB + D) TAB PO SCH (08:05)
[2020-05-24] MEDS: PREGABALIN 100 MG (LYRICA) CAPSULE PO SCH ×2 (08:05→20:10)
[2020-05-24] MEDS: LIDOCAINE 4% (SALONPAS) PATCH TP SCH (08:05)
[2020-05-24] MEDS: PANTOPRAZOLE 40 MG (PROTONIX) TAB PO SCH (08:05)
[2020-05-24] MEDS: LACTOBACILLUS ACIDOPHILUS (PROBIOTIC) CAPSULE PO SCH ×2 (08:05→20:10)
[2020-05-24] MEDS: ASPIRIN E.C. 81 MG (ECOTRIN) TAB PO SCH (08:05)
[2020-05-24 08:08] VITALS: BP 120/66
[2020-05-24] MEDS: polyethylene glycoL POWDER 17 GM (MIRALAX) PACK PO SCH (08:54)
--- NOTE | 2020-05-24 09:01 | Physical Therapy Daily Note ---
PT Daily Note-Current Subjective Pt presents upright in wheelchair. Pt received medications from nursing staff; pt does complain of some burning sensations in R leg and side. Pt agrees to PT. Appearance After PT treatment concluded, pt is left upright in wheelchair in room under supervision of OT. Mental Status Patient Orientation: Person, Place, Time, Eyes Open, Situation Transfers SCALE: Activities may be completed with or without assistive devices. 5-Vrnimzewyu-nfzzqqx completes the activity by him/herself with no assistance from a helper. 5-Set-up or Clean-up Assistance-helper sets up or cleans up; patient completes activity. [place] assists only prior to or following the activity. 4-Supervision or Touching Assistance-helper provides verbal cues and/or t ouching/steadying and/or contact guard assistance as patient completes activity. Assistance may be provided throughout the activity or intermittently. 3-Partial/Moderate Assistance-helper does LESS THAN HALF the effort. [place] lifts, holds or supports trunk or limbs, but provides less than half the effort. 2-Substantial/Maximal Assistance-helper does MORE THAN HALF the effort. [place] lifts or holds trunk or limbs and provides more than half the effort. 0-Ztbqijbij-jlwwog does ALL the effort. Patient does none of the effort to complete the activity. Or, the assistance of 2 or more helpers is required for the patient to complete the activity. If activity was not attempted, code reason: 7-Patient Refused. 9-Not Applicable-not attempted and the patient did not perform the activity before the current illness, exacerbation or injury. 10-Not Attempted due to Environmental Limitations-(lack of equipment, weather restraints, etc.). 88-Not Attempted due to Medical Conditions or Safety Concerns. Sit to Stand (QC): 3 Chair/Fqv-sl-Xyaqu Xfer(QC): 3 Weight Bearing Right Lower Extremity: Right Non Weight Bearing Wheelchair Training Does the Pt Use a Wheelchair?: Yes Wheel 50 ft with 2 turns (QC): 5 Wheel 150 ft (QC): 5 Type of Wheelchair: Manual 150' x2 Exercises Standing: Sit to Stand Standing Reps: 30 Standing balance with UE manipulation across midline Treatments Standing balance and transfers Assessment Current Status: Good Progress Co-treated with OT due to limitations in patients in strength, endurance, mobility, transfers, complying to precautions, and coordinating UE and LE motions. Pt is now able to stand-pivot transfer with walker; pt required verbal cueing throughout movement. PT Short Term Goals Short Term Goals Time Frame: May 20, 2020 Roll Left & Right: 3 Sit to lyin Lying to sitting on side of be: 3 Sit to stand: 3 Chair/hqn-ih-bqopf transfer: 3 PT Mechanical Manufacturing Engineer Goals Mechanical Manufacturing Engineer Goals PT Longterm Goals Time Frame: Jun 03, 2020 Roll Left & Right (QC): 4 Sit to Lying (QC): 4 Lying-Sitting on Side/Bed(QC): 4 Sit to Stand (QC): 4 Chair/Dcd-mq-Twpmk Xfer(QC): 4 Toilet Transfer (QC): 4 Car Transfer (QC): 3 Does the Patient Walk: No and Walking Goal IS indicated Walk 10 feet (QC): 3 Walk 50ft with 2 Turns (QC): 3 Walk 150 ft (QC): 88 Walking 10ft on Uneven Surface: 3 1 Step (curb) (QC): 3 4 Steps (QC): 88 12 Steps (QC): 88 Picking up an Object (QC): 88 Wheel 50 feet with 2 turns (QC: 6 Wheel 150 feet: 6 PT Plan Problem List Problem List: Activity Tolerance, Functional Strength, Safety, Balance, Gait, Transfer, Bed Mobility, ROM Treatment/Plan Treatment Plan: Continue Plan of Care Treatment Plan: Bed Mobility, Education, Functional Activity Jameel, Functional Strength, Group Therapy, Gait, Safety, Therapeutic Exercise, Transfers Treatment Duration: Jun 03, 2020 Frequency: Modified Program (IRF) (24/03) Estimated Hrs Per Day: 1.5 hours per day Patient and/or Family Agrees t: Yes Safety Risks/Education Patient Education: Transfer Techniques, Reviewed Precautions, Correct Positioning, W/C Management, Safety Issues Teaching Recipient: Patient Teaching Methods: Demonstration, Discussion Response to Teaching: Reinforcement Needed Time/GCodes Time In: 0800 Time Out: 0900 Total Billed Treatment Time: 60 Total Billed Treatment 1 visit FA 20' NM 25' EX 15' ARYA RIGGS PT May 24, 2020 09:01
[2020-05-24] MEDS: CARISOPRODOL 350 MG (SOMA) TAB PO PRN ×3 (09:26→23:08)
--- NOTE | 2020-05-24 10:29 | Occupational Ther Daily Note ---
OT Current Status-Daily Note Subjective Pt seated in recliner, agreeable to therapy at this time. Pt reports some tingling/numbness in R leg and side. ADL-Treatment Therapy Code Descriptions/Definitions Functional [place] Measure: 0=Not Assessed/NA 4=Minimal Assistance 1=Total Assistance 5=Supervision or Setup 2=Maximal Assistance 6=Modified [place] 3=Moderate Assistance 7=Complete IndependenceSCALE: Activities may be completed with or without assistive devices. 6-Wytzkhbqbl-sakjtqe completes the activity by him/herself with no assistance from a helper. 5-Set-up or Clean-up Assistance-helper sets up or cleans up; patient completes activity. [place] assists only prior to or following the activity. 4-Supervision or Touching Assistance-helper provides verbal cues and/or touching/steadying and/or contact guard assistance as patient completes activity. Assistance may be provided throughout the activity or intermittently. 3-Partial/Moderate Assistance-helper does LESS THAN HALF the effort. [place] lifts, holds or supports trunk or limbs, but provides less than half the effort. 2-Substantial/Maximal Assistance-helper does MORE THAN HALF the effort. [place] lifts or holds trunk or limbs and provides more than half the effort. 4-Fctqrjnvf-npexix does ALL the effort. Patient does none of the effort to complete the activity. Or, the assistance of 2 or more helpers is required for the patient to complete the activity. If activity was not attempted, code reason: 7-Patient Refused. 9-Not Applicable-not attempted and the patient did not perform the activity before the current illness, exacerbation or injury. 10-Not Attempted due to Environmental Limitations-(lack of equipment, weather restraints, etc.). 88-Not Attempted due to Medical Conditions or Safety Concerns. Oral Hygiene (QC): 6 (independent seated at sink in w/c.) Upper Body Dressing (QC): 4 (Pt able to doff night gown and don clean night gown, CGA during stand at FWW.) Other Treatment [id number] OT/PT cotreat. OT/PT cotreat due to skill of 2 clinicians required which a director of rehabilitation could not perform secondary to the need to coordinate UE/LE with tasks, patient's limitation in strength, ROM, endurance, complying with precautions, and transfers. OT focused on ADLs, UE placement, cues for sequencing and safety, while PT focused on transfers, LE placement, overall gross movement and LE exercises. Pt self propelled w/c from room to therapy area. Pt educated on functional transfer from w/c to mat using FWW to pivot on LLE. In order to increase standing balance, functional reaching, UE endurance, and safety with tasks, pt stood at FWW and completed UE activities. Pt first completed ring arc across midline using R&L hand, pt then required seated rest break, then stood to complete task again. Pt then stood at FWW to complete functional reaching in all planes with R hand & L hand, pt able to complete task with 1 hand on the walker while the other hand reaches for cones. Pt completed task with R/L hand, took a seated rest break, then completed task a 2nd time. Pt took a seated rest break. In order to increase BUE strength and functional endurance, and to increase independence with transfers. pt completed 3 sets x10 reps sit to stand transfers from mat. Pt transferred back to w/c using FWW, requiring cues for sequencing of transfer. Pt self-propelled w/c back to her room requesting to stay up in w/c. Pt changed nightgown, with CGA in stand at FWW as pt managed gown down. [id number]: Pt seated in w/c, self propelled self into restroom. Pt independently brushed teeth and hair as well as washed her face at the sink. Pt then required assistance maneuvering w/c out of bathroom, then pt able to manage w/c into position in her room. OT set up tray table next to pt and put call light in pt's reach, all needs met. Education OT Patient Education: Correct positioning, Energy conservation, Modified ADL techniques, Progress toward Goal/Update tx plan, Purpose of tx/functional activities, Safety issues, Transfer techniques, W/C management Teaching Recipient: Patient Teaching Methods: Discussion Response to Teaching: Verbalize Understanding, Reinforcement Needed OT Short Term Goals Short Term Goals Time Frame: May 24, 2020 Shower/bathe self: 3 Lower body dressin Putting on/taking off footwear: 3 OT Longterm Goals Longterm Goals Time Frame: Jun 03, 2020 Eating (QC): 6 Oral Hygiene (QC): 6 Toileting Hygiene (QC): 6 Shower/Bathe Self (QC): 6 Upper Body Dressing (QC): 6 Lower Body Dressing (QC): 6 On/Off Footwear (QC): 6 Additional Goals: 1-Demonstrate ADL Tasks, 2-Verbalize Understanding, 3- ImproveStrength/Jameel 1=Demonstrate adherence to instructed precautions during ADL tasks. 2=Patient will verbalize/demonstrate understanding of assistive devices/modifications for ADL. 3=Patient will improve strength/tolerance for activity to enable patient to perform ADL's. OT Education/Plan Problem List/Assessment Assessment: Decreased Activ Tolerance, Decreased UE Strength, Impaired Funct Balance, Impaired I ADL's, Impaired Self-Care Skills Discharge Recommendations Plan/Recommendations: Continue POC Treatment Plan/Plan of Care Patient would benefit from OT for education, treatment and training to promote independence in ADL's, mobility, safety and/or upper extremity function for ADL's. Plan of Care: ADL Retraining, Functional Mobility, Group Exercise/Act as Ind, UE Funct Exercise/Act, W/C Management Training Treatment Duration: Jun 03, 2020 Frequency: Modified Program (IRF) (24/03) Estimated Hrs Per Day: 1.5 hours per day Agreement: Yes Rehab Potential: Fair Time/GCodes Start Time: 08:00 Stop Time: 09:15 Total Time Billed (hr/min): 75 Billed Treatment Time [id number] OT/PT cotreat x60' [id number] OT tx x15' 1, FA 4 (60'), ADL (15') JUAN JOSE BREWSTER OT May 24, 2020 10:29
[2020-05-24] MEDS: DIAZEPAM 5 MG (VALIUM) TABLET PO PRN (11:25)
--- NOTE | 2020-05-24 12:52 | Physical Therapy Daily Note ---
PT Daily Note-Current Subjective Pt presents upright in wheelchair in room. Pt complies to PT. Pt reports her back has been bothering her. Appearance After PT tx, pt is left in room upright in wheelchair with access to tray, call button, and all needs have been met. Mental Status Patient Orientation: Person, Place, Time, Eyes Open, Situation Transfers SCALE: Activities may be completed with or without assistive devices. 3-Qoiadelrjr-rvhcqbh completes the activity by him/herself with no assistance from a helper. 5-Set-up or Clean-up Assistance-helper sets up or cleans up; patient completes activity. [place] assists only prior to or following the activity. 4-Supervision or Touching Assistance-helper provides verbal cues and/or touching/steadying and/or contact guard assistance as patient completes activity. Assistance may be provided throughout the activity or intermittently. 3-Partial/Moderate Assistance-helper does LESS THAN HALF the effort. [place] lifts, holds or supports trunk or limbs, but provides less than half the effort. 2-Substantial/Maximal Assistance-helper does MORE THAN HALF the effort. [place] lifts or holds trunk or limbs and provides more than half the effort. 5-Amaahyoiu-wiphqh does ALL the effort. Patient does none of the effort to compl ete the activity. Or, the assistance of 2 or more helpers is required for the patient to complete the activity. If activity was not attempted, code reason: 7-Patient Refused. 9-Not Applicable-not attempted and the patient did not perform the activity before the current illness, exacerbation or injury. 10-Not Attempted due to Environmental Limitations-(lack of equipment, weather restraints, etc.). 88-Not Attempted due to Medical Conditions or Safety Concerns. Weight Bearing Right Lower Extremity: Right Non Weight Bearing Wheelchair Training Does the Pt Use a Wheelchair?: Yes Wheel 50 ft with 2 turns (QC): 4 Wheel 150 ft (QC): 4 Type of Wheelchair: Manual Exercises Seated Therapy Exercises: Ankle pumps (LLE), Long arc quads, Hip flexion, Hip abd/add Seated Reps: 20 Treatments LE Strengthening and Wheelchair mobility Assessment Current Status: Fair Progress Pt is slow with wheelchair mobility but able to propel self. Pt demonstrating improved ability and endurance with LE exercises. PT Short Term Goals Short Term Goals Time Frame: May 20, 2020 Roll Left & Right: 3 Sit to lyin Lying to sitting on side of be: 3 Sit to stand: 3 Chair/klo-mm-qstbd transfer: 3 PT Acoustical Engineer Goals Assisted Goals PT Acoustical Engineer Goals Time Frame: Jun 03, 2020 Roll Left & Right (QC): 4 Sit to Lying (QC): 4 Lying-Sitting on Side/Bed(QC): 4 Sit to Stand (QC): 4 Chair/Dhr-mp-Imgha Xfer(QC): 4 Toilet Transfer (QC): 4 Car Transfer (QC): 3 Does the Patient Walk: No and Walking Goal IS indicated Walk 10 feet (QC): 3 Walk 50ft with 2 Turns (QC): 3 Walk 150 ft (QC): 88 Walking 10ft on Uneven Surface: 3 1 Step (curb) (QC): 3 4 Steps (QC): 88 12 Steps (QC): 88 Picking up an Object (QC): 88 Wheel 50 feet with 2 turns (QC: 6 Wheel 150 feet: 6 PT Plan Problem List Problem List: Activity Tolerance, Functional Strength, Safety, Balance, Gait, Transfer, Bed Mobility, ROM Treatment/Plan Treatment Plan: Continue Plan of Care Treatment Plan: Bed Mobility, Education, Functional Activity Jameel, Functional Strength, Group Therapy, Gait, Safety, Therapeutic Exercise, Transfers Treatment Duration: Jun 03, 2020 Frequency: Modified Program (IRF) (24/03) Estimated Hrs Per Day: 1.5 hours per day Patient and/or Family Agrees t: Yes Safety Risks/Education Patient Education: Reviewed Precautions, Safety Issues Teaching Recipient: Patient Teaching Methods: Demonstration, Discussion Response to Teaching: Reinforcement Needed Time/GCodes Time In: 1145 Time Out: 1200 Total Billed Treatment Time: 15 Total Billed Treatment 1 visit EX ARYA RAMIREZ PT May 24, 2020 12:52
--- NOTE | 2020-05-24 14:53 | NUR ---
Pt s Sikhism but has no specific restoration affiliation. She spoke of good family support and is eager to get home. Ornamental Bronze Worker provided prayer and blessing.
--- NOTE | 2020-05-24 16:00 | Speech Therapy Daily Note ---
Speech Daily Progress Note Subjective Date Seen by Provider: May 24, 2020 Time Seen by Provider: 00:30 Patient was resting in her bed, ordering her lunch for the day when I entered her room. Objective Patient answered intermediate level of general questions with 90% accuracy given 10% cues. Assessment Assessment Current Status: Good Progress Treatment Plan Continue Plan of Care Speech Short Term Goals Short Term Goals Short Term Goals 1) Patient will complete memory tasks related to her daily needs at 90% or greater with minimal cues. 2) Patient will complete problem solving tasks related to her daily needs at 90% or greater with minimal cues. 3) Patient will complete safety awareness tasks related to her daily needs at 90% or greater with minimal cues. Speech Fdc Goals Fdc Goals Patient will improve her cognitive functional level for meeting her daily needs with minimal assist. Speech-Plan Patient/Family Goals Patient/Family Goals: Patient plans on returning home with family, friends and staff to assist her. Treatment Plan Speech Therapy Treatment Plan: Continue Plan of Care Treatment Duration: May 28, 2020 Frequency: 4 times per week (Patient will receive skilled ST 4-5x per week) Estimated Hrs Per Day: .5 hour per day Rehab Potential: Fair Barriers to Learning: Patient's recent decreased level of function Pt/Family Agrees to Plan: Yes Safety Risks/Education Teaching Recipient: Patient Teaching Methods: Demonstration, Discussion Response to Teaching: Verbalize Understanding, Return Demonstration Education Topics Provided: Continued safety upon her return home, her fear of driving again Time Speech Therapy Time In: 09:30 Speech Therapy Time Out: 10:00 Total Billed Time: 30 Billed Treatment Time 1 SLSVETLANA Pantoja May 24, 2020 16:00
[2020-05-24 16:02] VITALS: BP 137/63
--- NOTE | 2020-05-24 19:06 | NUR ---
bedside report received from RODNEY CHAIDEZ, assume care of pt
--- NOTE | 2020-05-24 19:45 | NUR ---
rates pain at 5/10 on numeric scale
[2020-05-24] MEDS: MONTELUKAST 10 MG (SINGULAIR) TAB PO SCH (20:09)
[2020-05-24] MEDS: LIDOCAINE PATCH REMOVAL TP SCH (20:11)
--- NOTE | 2020-05-24 20:23 | NUR ---
pt took all laxatives, fsbs 195 NovoLog 4 units given
--- NOTE | 2020-05-24 23:08 | NUR ---
c/o pain to rt leg level 7/10 on numeric scale, oxyir 5mg & soma 350mg given
--- NOTE | 2020-05-24 23:43 | NUR ---
rates pain level 4/10 on numeric scale
--- NOTE | 2020-05-25 04:06 | NUR ---
c/o rt leg pain, level 7/10 on numeric scale, oxyir 5mg given
[2020-05-25 05:21] VITALS: BP 120/60
[2020-05-25] MEDS: inSUlin ASPART (NovoLOG) 1 UNIT/0.01 ML (CHARGE PER UNIT) SC SCH ×4 (06:00→20:37)
[2020-05-25] MEDS: CARISOPRODOL 350 MG (SOMA) TAB PO PRN ×2 (06:04→16:46)
[2020-05-25] MEDS: LEVOTHYROXINE 100 MCG (LEVOTHROID) TAB PO SCH (06:04)
--- NOTE | 2020-05-25 06:04 | NUR ---
c/o rt leg discomfort, pain level 7/10 on numeric scale, soma 350mg given
--- NOTE | 2020-05-25 06:44 | NUR ---
rates pain at 5/10 on numeric scale
[2020-05-25] MEDS: ADVAIR HFA 115/21 MCG INHALER 8 GM IH SCH (08:13)
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
[2020-05-25] MEDS: LOSARTAN 100 MG (COZAAR) TABLET PO SCH (09:06)
[2020-05-25] MEDS: LIDOCAINE 4% (SALONPAS) PATCH TP SCH (09:06)
[2020-05-25] MEDS: OMEGA 3 (FISH OIL) 1000 MG CAP PO SCH (09:07)
[2020-05-25] MEDS: PANTOPRAZOLE 40 MG (PROTONIX) TAB PO SCH (09:07)
[2020-05-25] MEDS: PARoxetine 20 MG (PAXIL) TAB PO SCH (09:07)
[2020-05-25] MEDS: DOCUSATE SODIUM 100 MG (COLACE) CAP PO SCH ×2 (09:07→20:32)
[2020-05-25] MEDS: LACTOBACILLUS ACIDOPHILUS (PROBIOTIC) CAPSULE PO SCH ×2 (09:07→20:32)
[2020-05-25] MEDS: ASPIRIN E.C. 81 MG (ECOTRIN) TAB PO SCH (09:07)
[2020-05-25] MEDS: polyethylene glycoL POWDER 17 GM (MIRALAX) PACK PO SCH (09:07)
[2020-05-25] MEDS: CALCIUM CARB + VIT D 600 MG (CALCARB + D) TAB PO SCH (09:07)
[2020-05-25] MEDS: SENNA W/DOCUSATE (SENOKOT S) TABLET PO SCH ×2 (09:08→20:32)
[2020-05-25] MEDS: PREGABALIN 100 MG (LYRICA) CAPSULE PO SCH ×2 (09:08→20:32)
[2020-05-25] MEDS: ENOXAPARIN 30 MG/0.3 ML (LOVENOX) SYR SQ SCH ×2 (09:09→20:38)
[2020-05-25] MEDS: DIAZEPAM 5 MG (VALIUM) TABLET PO PRN ×2 (09:39→21:48)
--- NOTE | 2020-05-25 09:40 | Occupational Ther Daily Note ---
OT Current Status-Daily Note Subjective Pt seated upright in w/c, agreeable to OT Tx. Pt did not verbalize pain during tx. Mental Status/Objective Patient Orientation: Person, Place, Time, Situation ADL-Treatment Therapy Code Descriptions/Definitions Functional [place] Measure: 0=Not Assessed/NA 4=Minimal Assistance 1=Total Assistance 5=Supervision or Setup 2=Maximal Assistance 6=Modified [place] 3=Moderate Assistance 7=Complete IndependenceSCALE: Activities may be completed with or without assistive devices. 3-Ieurqvmalj-fwyuqpf completes the activity by him/herself with no assistance from a helper. 5-Set-up or Clean-up Assistance-helper sets up or cleans up; patient completes activity. [place] assists only prior to or following the activity. 4-Supervision or Touching Assistance-helper provides verbal cues and/or touc judy/steadying and/or contact guard assistance as patient completes activity. Assistance may be provided throughout the activity or intermittently. 3-Partial/Moderate Assistance-helper does LESS THAN HALF the effort. [place] lifts, holds or supports trunk or limbs, but provides less than half the effort. 2-Substantial/Maximal Assistance-helper does MORE THAN HALF the effort. [place] lifts or holds trunk or limbs and provides more than half the effort. 3-Awzjskcpl-umusgk does ALL the effort. Patient does none of the effort to complete the activity. Or, the assistance of 2 or more helpers is required for the patient to complete the activity. If activity was not attempted, code reason: 7-Patient Refused. 9-Not Applicable-not attempted and the patient did not perform the activity before the current illness, exacerbation or injury. 10-Not Attempted due to Environmental Limitations-(lack of equipment, weather restraints, etc.). 88-Not Attempted due to Medical Conditions or Safety Concerns. Eating (QC): 6 (Pt reports no difficulties) Oral Hygiene (QC): 6 (independent seated in w/c at sink) Shower/Bathe Self (QC): 5 (Pt able to wash all parts with set up at SC, OT covered RLE prior to shower.) Upper Body Dressing (QC): 4 (Pt able to don ticket puller night gown, CGA in stand at FWW for pt to manage gown down) Lower Body Dressing (QC): 4 (OT educated pt on AE for LB dressing, pt able to complete task with verbal cues and CGA in stance at [facility] for pant hike.) On/Off Footwear: 3 (OT educated pt on AE for footwear, pt doffed sock using haul truck driver with mod cues, and she donned sock with sock aide, min A ) Other Treatment Pt seated in w/c, transferred w/c to [place] using FWW, pivoting on LLE. Pt then taken to shower, OT covered pt's RLE prior to shower, pt doffed clothes. Pt then completed showering. After pt dried off, OT donned sock for pt in order for pt to transfer from [place] to w/ using FWW. Pt then completed dressing at w/c, OT educated pt on AE for lower body dressing, pt demo'd understanding being able to complete lower body dressing with cues and CGA in stance. OT removed pt's sock, demoing how to use sock aide, pt then completed footwear using sock aide with min A. Pt self-propelled w/c to sink, brushing her teeth and hair independently. Pt then self-propelled w/c to therapy gym. In order to increase fine motor strength and endurance, pt completed fine motor task with moderate resistance putty. Pt then self-propelled w/c back to her room. Post OT tx, pt seated in w/c, call light in reach and all needs met, nurse present. Education OT Patient Education: Correct positioning, Modified ADL techniques, Progress toward Goal/Update tx plan, Purpose of tx/functional activities, Safety issues, Use of adapted equipment, W/C management Teaching Recipient: Patient Teaching Methods: Discussion Response to Teaching: Verbalize Understanding OT Short Term Goals Short Term Goals Time Frame: May 24, 2020 Shower/bathe self: 3 Lower body dressin Putting on/taking off footwear: 3 OT Rope Coiling Machine Operator Goals Rope Coiling Machine Operator Goals Time Frame: Jun 03, 2020 Eating (QC): 6 Oral Hygiene (QC): 6 Toileting Hygiene (QC): 6 Shower/Bathe Self (QC): 6 Upper Body Dressing (QC): 6 Lower Body Dressing (QC): 6 On/Off Footwear (QC): 6 Additional Goals: 1-Demonstrate ADL Tasks, 2-Verbalize Understanding, 3- ImproveStrength/Jameel 1=Demonstrate adherence to instructed precautions during ADL tasks. 2=Patient will verbalize/demonstrate understanding of assistive devices/modifications for ADL. 3=Patient will improve strength/tolerance for activity to enable patient to perform ADL's. OT Education/Plan Problem List/Assessment Assessment: Decreased Activ Tolerance, Decreased UE Strength, Impaired Funct Balance, Impaired I ADL's, Impaired Self-Care Skills Discharge Recommendations Plan/Recommendations: Continue POC Treatment Plan/Plan of Care Patient would benefit from OT for education, treatment and training to promote independence in ADL's, mobility, safety and/or upper extremity function for ADL's. Plan of Care: ADL Retraining, Functional Mobility, Group Exercise/Act as Ind, UE Funct Exercise/Act, W/C Management Training Treatment Duration: Jun 03, 2020 Frequency: Modified Program (IRF) (24/03) Estimated Hrs Per Day: 1.5 hours per day Agreement: Yes Rehab Potential: Fair Time/GCodes Start Time: 08:00 Stop Time: 09:30 Total Time Billed (hr/min): 90 Billed Treatment Time 1, ADL 5 (75'), FA (15') JUAN JOSE BREWSTER OT May 25, 2020 09:40
--- NOTE | 2020-05-25 11:04 | Physical Therapy Daily Note ---
PT Daily Note-Current Subjective Pt presents upright in wheelchair in room. Pt reports no pain. Pt agrees to PT. Appearance After PT session the pt is assisted to edge of bed. Pt has access to tray, all needs have been met and nurse is present in room. Mental Status Patient Orientation: Person, Place, Time, Eyes Open, Situation Transfers SCALE: Activities may be completed with or without assistive devices. 1-Ghifrdqtjy-qyzkltf completes the activity by him/herself with no assistance from a helper. 5-Set-up or Clean-up Assistance-helper sets up or cleans up; patient completes activity. [place] assists only prior to or following the activity. 4-Supervision or Touching Assistance-helper provides verbal cues and/or touching/steadying and/or contact guard assistance as patient completes activity. Assistance may be provided throughout the activity or intermittently. 3-Partial/Moderate Assistance-helper does LESS THAN HALF the effort. [place] lifts, holds or supports trunk or limbs, but provides less than half the effort. 2-Substantial/Maximal Assistance-helper does MORE THAN HALF the effort. [place] lifts or holds trunk or limbs and provides more than half the effort. 5-Hfrrdopnj-fswfzs does ALL the effort. Patient does none of the effort to complete the activity. Or, the assistance of 2 or more helpers is required for the patient to complete the activity. If activity was not attempted, code reason: 7-Patient Refused. 9-Not Applicable-not attempted and the patient did not perform the activity before the current illness, exacerbation or injury. 10-Not Attempted due to Environmental Limitations-(lack of equipment, weather restraints, etc.). 88-Not Attempted due to Medical Conditions or Safety Concerns. Sit to Stand (QC): 4 Chair/Azb-ls-Buuqd Xfer(QC): 3 Toilet Transfer (QC): 3 Weight Bearing Right Lower Extremity: Right Non Weight Bearing Gait Training Does the Patient Walk?: Yes Distance: 6'x3 Gait Assistive Device: Parallel Bars Pt able to take steps in parallel bars. Pt cued to not bear anyweight through R LE and relies heavily on upper extremity support. Pt is slow with steps forward. Therapists provided CGA and wheelchair followed behind. Wheelchair Training Does the Pt Use a Wheelchair?: Yes Wheel 50 ft with 2 turns (QC): 4 Wheel 150 ft (QC): 4 Type of Wheelchair: Manual Exercises Seated Therapy Exercises: Ankle pumps (LLE), Long arc quads (with yellow theraband), Hip flexion, Hamstring Curls (with yellow theraband), Hip abd/add (with yellow theraband), Glut set (2s hold) Treatments Gait training and LE strengthening Assessment Current Status: Good Progress Pt has improved transfers, pkq-fh-bcpavb, and is now able to take a few steps in the parallel bars PT Short Term Goals Short Term Goals Time Frame: May 20, 2020 Roll Left & Right: 3 Sit to lyin Lying to sitting on side of be: 3 Sit to stand: 3 Chair/imv-cv-xwtbe transfer: 3 PT [facility] Goals Supervisor [employer] Services Goals PT Supervisor Gate Services Goals Time Frame: Jun 03, 2020 Roll Left & Right (QC): 4 Sit to Lying (QC): 4 Lying-Sitting on Side/Bed(QC): 4 Sit to Stand (QC): 4 Chair/Myq-do-Chjlm Xfer(QC): 4 Toilet Transfer (QC): 4 Car Transfer (QC): 3 Does the Patient Walk: No and Walking Goal IS indicated Walk 10 feet (QC): 3 Walk 50ft with 2 Turns (QC): 3 Walk 150 ft (QC): 88 Walking 10ft on Uneven Surface: 3 1 Step (curb) (QC): 3 4 Steps (QC): 88 12 Steps (QC): 88 Picking up an Object (QC): 88 Wheel 50 feet with 2 turns (QC: 6 Wheel 150 feet: 6 PT Plan Problem List Problem List: Activity Tolerance, Functional Strength, Safety, Balance, Gait, Transfer, Bed Mobility, ROM Treatment/Plan Treatment Plan: Continue Plan of Care Treatment Plan: Bed Mobility, Education, Functional Activity Jameel, Functional Strength, Group Therapy, Gait, Safety, Therapeutic Exercise, Transfers Treatment Duration: Jun 03, 2020 Frequency: Modified Program (IRF) (24/03) Estimated Hrs Per Day: 1.5 hours per day Patient and/or Family Agrees t: Yes Safety Risks/Education Patient Education: Gait Training, Transfer Techniques, Reviewed Precautions, Correct Positioning, W/C Management, Safety Issues Teaching Recipient: Patient Teaching Methods: Demonstration, Discussion Response to Teaching: Reinforcement Needed Time/GCodes Time In: 1000 Time Out: 1100 Total Billed Treatment Time: 60 Total Billed Treatment 1 visit GT 20' EX 30' FA 10' KRTEK,ARYA PT May 25, 2020 11:04
[2020-05-25] MEDS ORDERED: FLUT16SP22 NSEACH (12:39)
[2020-05-25] MEDS ORDERED: METF-865 PO (12:39)
[2020-05-25] MEDS ORDERED: DICL75TA2 PO (12:39)
[2020-05-25] MEDS ORDERED: ZOLP5TAB7 PO (12:39)
[2020-05-25] MEDS ORDERED: FEXO-222 PO (12:39)
--- NOTE | 2020-05-25 13:22 | Physical Therapy Daily Note ---
PT Daily Note-Current Subjective Pt presents compliant to PT, she is sitting upright on edge of bed. Pt reports 7/10 pain (right leg) and is awaiting medication from nurse. Appearance After PT treatment, patient is returned to room where she is left upright in wheelchair with access to tray, call button, and all needs met. Mental Status Patient Orientation: Person, Place, Time, Eyes Open, Situation Transfers SCALE: Activities may be completed with or without assistive devices. 7-Rofbzmdsga-ooutykh completes the activity by him/herself with no assistance from a helper. 5-Set-up or Clean-up Assistance-helper sets up or cleans up; patient completes activity. [place] assists only prior to or following the activity. 4-Supervision or Touching Assistance-helper provides verbal cues and/or touching/steadying and/or contact guard assistance as patient completes activity. Assistance may be provided throughout the activity or intermittently. 3-Partial/Moderate Assistance-helper does LESS THAN HALF the effort. [place] lifts, holds or supports trunk or limbs, but provides less than half the effort. 2-Substantial/Maximal Assistance-helper does MORE THAN HALF the effort. [place] lifts or holds trunk or limbs and provides more than half the effort. 0-Sspkhdmox-coqjrc does ALL the effort. Patient does none of the effort to complete the activity. Or, the assistance of 2 or more helpers is required for the patient to complete the activity. If activity was not attempted, code reason: 7-Patient Refused. 9-Not Applicable-not attempted and the patient did not perform the activity before the current illness, exacerbation or injury. 10-Not Attempted due to Environmental Limitations-(lack of equipment, weather restraints, etc.). 88-Not Attempted due to Medical Conditions or Safety Concerns. Sit to Stand (QC): 3 Chair/Ygw-zm-Klgpp Xfer(QC): 3 Weight Bearing Right Lower Extremity: Right Non Weight Bearing Wheelchair Training Does the Pt Use a Wheelchair?: Yes Wheel 50 ft with 2 turns (QC): 4 Wheel 150 ft (QC): 4 Type of Wheelchair: Manual 150' x2 Exercises Pt required pink step and airex to rest R foot on to side of nustep machine; this keeps pt compliant with precautions. NuStep Minutes: 15 NuStep Workload: 4 Treatments LE strengthening Assessment Current Status: Good Progress Pt froze during transfer to left side; she reports the WC wheel was in the way to pivot. Pt was able to be verbally cued on how to safely complete transfer. Pt is asking several questions related to her injuries and prognosis. PT Short Term Goals Short Term Goals Time Frame: May 20, 2020 Roll Left & Right: 3 Sit to lyin Lying to sitting on side of be: 3 Sit to stand: 3 Chair/qdx-za-ffubw transfer: 3 PT [employer] Director Goals [employer] Director Goals PT [employer] Director Goals Time Frame: Jun 03, 2020 Roll Left & Right (QC): 4 Sit to Lying (QC): 4 Lying-Sitting on Side/Bed(QC): 4 Sit to Stand (QC): 4 Chair/Klf-qp-Jsgbe Xfer(QC): 4 Toilet Transfer (QC): 4 Car Transfer (QC): 3 Does the Patient Walk: No and Walking Goal IS indicated Walk 10 feet (QC): 3 Walk 50ft with 2 Turns (QC): 3 Walk 150 ft (QC): 88 Walking 10ft on Uneven Surface: 3 1 Step (curb) (QC): 3 4 Steps (QC): 88 12 Steps (QC): 88 Picking up an Object (QC): 88 Wheel 50 feet with 2 turns (QC: 6 Wheel 150 feet: 6 PT Plan Problem List Problem List: Activity Tolerance, Functional Strength, Safety, Balance, Gait, Transfer, Bed Mobility, ROM Treatment/Plan Treatment Plan: Continue Plan of Care Treatment Plan: Bed Mobility, Education, Functional Activity Jameel, Functional Strength, Group Therapy, Gait, Safety, Therapeutic Exercise, Transfers Treatment Duration: Jun 03, 2020 Frequency: Modified Program (IRF) (24/03) Estimated Hrs Per Day: 1.5 hours per day Patient and/or Family Agrees t: Yes Safety Risks/Education Patient Education: Transfer Techniques, Reviewed Precautions, Correct Positioning, W/C Management, Safety Issues Teaching Recipient: Patient Teaching Methods: Demonstration, Discussion Response to Teaching: Reinforcement Needed Time/GCodes Time In: 1245 Time Out: 1315 Total Billed Treatment Time: 30 Total Billed Treatment 1 visit FA 15' EX 15' ARYA RIGGS PT May 25, 2020 13:22
[2020-05-25] MEDS: ONDANSETRON 4 MG (ZOFRAN) ORAL DISSOLVE TAB PO PRN (14:18)
[2020-05-25 16:20] VITALS: BP 111/59
--- NOTE | 2020-05-25 19:42 | NUR ---
bedside report received from DAMON CHAIDEZ, assume care of pt
--- NOTE | 2020-05-25 20:10 | NUR ---
Dr. Hopkins, pt's neurologist at [facility] recommended to hold ASA 81 mg x 1 month, & for pt to have a follow up CT of head w/o contrast next week during scheduled Tele-health visit today. Notified Dr. Irvin. Dr. Hopkins stated that pt could remain on the scheduled Lovenox.
[2020-05-25] MEDS: MONTELUKAST 10 MG (SINGULAIR) TAB PO SCH (20:32)
[2020-05-25] MEDS: LIDOCAINE PATCH REMOVAL TP SCH (20:35)
[2020-05-25] MEDS: MELATONIN 3 MG TABLET PO PRN (20:36)
--- NOTE | 2020-05-25 20:37 | NUR ---
pt took all laxatives, fsbs 183, novolog 4 units given
--- NOTE | 2020-05-25 21:48 | NUR ---
pt requesting Valium 10mg, given
[2020-05-26] MEDS: CARISOPRODOL 350 MG (SOMA) TAB PO PRN ×3 (03:43→20:27)
--- NOTE | 2020-05-26 03:43 | NUR ---
c/o rt leg pain, level 7/10 on numeric scale, oxyir 5mg & soma 350mg given
[2020-05-26] MEDS: ADVAIR HFA 115/21 MCG INHALER 8 GM IH SCH ×3 (04:11→18:45)
--- NOTE | 2020-05-26 04:20 | NUR ---
resting quietly in bed, pain level 0/10 on CNPI SCALE
--- NOTE | 2020-05-26 04:20 | NUR ---
resting quietly in bed, pain level 0/10 on CNPI SCALE
[2020-05-26 05:14] VITALS: BP 126/59
[2020-05-26] MEDS: inSUlin ASPART (NovoLOG) 1 UNIT/0.01 ML (CHARGE PER UNIT) SC SCH ×4 (06:00→20:32)
[2020-05-26] MEDS: LEVOTHYROXINE 100 MCG (LEVOTHROID) TAB PO SCH (06:41)
[2020-05-26] MEDS: LOSARTAN 100 MG (COZAAR) TABLET PO SCH (08:51)
[2020-05-26] MEDS: PARoxetine 20 MG (PAXIL) TAB PO SCH (08:51)
[2020-05-26] MEDS: SENNA W/DOCUSATE (SENOKOT S) TABLET PO SCH ×2 (08:51→20:26)
[2020-05-26] MEDS: DOCUSATE SODIUM 100 MG (COLACE) CAP PO SCH ×2 (08:53→20:26)
[2020-05-26] MEDS: CALCIUM CARB + VIT D 600 MG (CALCARB + D) TAB PO SCH (08:54)
[2020-05-26] MEDS: LACTOBACILLUS ACIDOPHILUS (PROBIOTIC) CAPSULE PO SCH ×2 (08:54→20:26)
[2020-05-26] MEDS: OMEGA 3 (FISH OIL) 1000 MG CAP PO SCH (08:54)
[2020-05-26] MEDS: LIDOCAINE 4% (SALONPAS) PATCH TP SCH (08:55)
[2020-05-26] MEDS: PANTOPRAZOLE 40 MG (PROTONIX) TAB PO SCH (08:55)
[2020-05-26] MEDS: PREGABALIN 100 MG (LYRICA) CAPSULE PO SCH ×2 (08:55→20:26)
[2020-05-26] MEDS: polyethylene glycoL POWDER 17 GM (MIRALAX) PACK PO SCH (08:55)
[2020-05-26] MEDS: ENOXAPARIN 30 MG/0.3 ML (LOVENOX) SYR SQ SCH ×2 (08:56→20:30)
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
--- NOTE | 2020-05-26 10:42 | Occupational Ther Daily Note ---
OT Current Status-Daily Note Subjective Pt seated EOB, agreeable to OT Tx. Pt states she is really wanting to go home as soon as possible. ADL-Treatment Therapy Code Descriptions/Definitions Functional [place] Measure: 0=Not Assessed/NA 4=Minimal Assistance 1=Total Assistance 5=Supervision or Setup 2=Maximal Assistance 6=Modified [place] 3=Moderate Assistance 7=Complete IndependenceSCALE: Activities may be completed with or without assistive devices. 0-Mixfpwnzpx-avknuwo completes the activity by him/herself with no assistance from a helper. 5-Set-up or Clean-up Assistance-helper sets up or cleans up; patient completes activity. [place] assists only prior to or following the activity. 4-Supervision or Touching Assistance-helper provides verbal cues and/or touching/steadying and/or contact guard assistance as patient completes activity. Assistance may be provided throughout the activity or intermittently. 3-Partial/Moderate Assistance-helper does LESS THAN HALF the effort. [place] lifts, holds or supports trunk or limbs, but provides less than half the effort. 2-Substantial/Maximal Assistance-helper does MORE THAN HALF the effort. [place] lifts or holds trunk or limbs and provides more than half the effort. 2-Ejcuecxud-imgzeo does ALL the effort. Patient does none of the effort to complete the activity. Or, the assistance of 2 or more helpers is required for the patient to complete the activity. If activity was not attempted, code reason: 7-Patient Refused. 9-Not Applicable-not attempted and the patient did not perform the activity before the current illness, exacerbation or injury. 10-Not Attempted due to Environmental Limitations-(lack of equipment, weather restraints, etc.). 88-Not Attempted due to Medical Conditions or Safety Concerns. Eating (QC): 6 Oral Hygiene (QC): 6 (Pt reports completing task this AM without difficulty, no assistance.) Shower/Bathe Self (QC): 5 (Pt performed task yesterday with set up, based on clinical judgement with tx today, pt would still require set up assistance with task.) Upper Body Dressing (QC): 5 (set up) Lower Body Dressing (QC): 4 (CGA in stance. Pt able to don/doff LE clothing using AE, no cues) On/Off Footwear: 5 (Pt able to don/doff LLE gripper sock using AE, no cues) Toileting Hygiene (QC): 4 (CGA in stance for clothing management) Toilet Transfer (QC): 4 (CGA onto toilet using GBs, SBA for SPT from toilet to w/c using GBs.) Other Treatment Pt seated EOB, agreeable to OT Tx. Pt completed upper body dressing. Pt transferred from EOB to w/c with CGA for SPT. Pt then self-propelled w/c to r estroom, positioning w/c for transfer. Pt able to transfer from w/c to toilet, SPT with GBs with CGA. Pt completed lower body dressing at toilet using AE. CGA in stance at GBs for clothing management, then SBA during SPT back to w/c. Pt then gathered dirty clothes, self-propelling to laundry room. Pt able to place clothes in washer and detergent, and close lid. OT assisted with starting the washer due to buttons being out of pts reach. Pt and OT discussed safety with ADLs at home, and equipment pt requires to safely discharge home. Pt states she does not think her bathroom is large enough for her w/c to get in so she is unable to use the restroom or bathe. Pt agrees to needing a BSC for toileting, and she is planning on going to her daughters house for showering. Her daughter has a walk in shower, but pt would require shower bench vs chair. Pt then completed functional kitchen task, gathering items out of cabinets at various heights using front end engineer at w/c level. Pt reports she does not have any further concerns with ADLs upon returning home. Pt returned to her room. Post OT tx, pt seated in w/c, call light in reach and all needs met. Education OT Patient Education: Correct positioning, Modified ADL techniques, Progress toward Goal/Update tx plan, Purpose of tx/functional activities, Safety issues, Transfer techniques, Use of adapted equipment Teaching Recipient: Patient Teaching Methods: Discussion Response to Teaching: Verbalize Understanding OT Short Term Goals Short Term Goals Time Frame: May 24, 2020 Shower/bathe self: 3 Lower body dressin Putting on/taking off footwear: 3 OT Mcc Goals Mcc Goals Time Frame: Jun 03, 2020 Eating (QC): 6 Oral Hygiene (QC): 6 Toileting Hygiene (QC): 6 Shower/Bathe Self (QC): 6 Upper Body Dressing (QC): 6 Lower Body Dressing (QC): 6 On/Off Footwear (QC): 6 Additional Goals: 1-Demonstrate ADL Tasks, 2-Verbalize Understanding, 3- ImproveStrength/Jameel 1=Demonstrate adherence to instructed precautions during ADL tasks. 2=Patient will verbalize/demonstrate understanding of assistive devices/modifications for ADL. 3=Patient will improve strength/tolerance for activity to enable patient to perform ADL's. OT Education/Plan Problem List/Assessment Assessment: Decreased Activ Tolerance, Impaired Funct Balance, Impaired I ADL's, Impaired Self-Care Skills Discharge Recommendations Plan/Recommendations: Continue POC Equpiment Recommendations-D/C: Bath Chair (vs banch), Orderlies Teacher, Bedside Commode, Sock Aide Treatment Plan/Plan of Care Patient would benefit from OT for education, treatment and training to promote independence in ADL's, mobility, safety and/or upper extremity function for ADL's. Plan of Care: ADL Retraining, Functional Mobility, Group Exercise/Act as Ind, UE Funct Exercise/Act, W/C Management Training Treatment Duration: Jun 03, 2020 Frequency: Modified Program (IRF) (24/03) Estimated Hrs Per Day: 1.5 hours per day Agreement: Yes Rehab Potential: Fair Time/GCodes Start Time: 09:15 Stop Time: 10:30 Total Time Billed (hr/min): 75 Billed Treatment Time 1, ADL 5 JUAN JOSE BREWSTER OT May 26, 2020 10:42
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
[2020-05-26] MEDS: DIAZEPAM 5 MG (VALIUM) TABLET PO PRN (15:41)
--- NOTE | 2020-05-26 15:41 | NUR ---
valium for c/o anxiety. up in chair watching tv. denies any other c/o.
--- NOTE | 2020-05-26 16:30 | NUR ---
SPOKE WITH DR ANAND'S OFFICE REGARDING REQUEST FOR F/U ORDERS PERTAINING TO PATIENT'S NEUROLOGY TELEHEALTH VISIT 05/[address] ANAND. GAVE STAFF FAX NUMBER [phone] TO FAX ORDERS OF MRI WITHOUT CONTRAST OVER. AWAITING FAX.
[2020-05-26 18:00] VITALS: BP 119/59
--- NOTE | 2020-05-26 19:12 | NUR ---
bedside report received from HANANE CHAIDEZ, assume care of pt
[2020-05-26] MEDS: MONTELUKAST 10 MG (SINGULAIR) TAB PO SCH (20:26)
--- NOTE | 2020-05-26 20:27 | NUR ---
pt took all laxatives, fsbs 200, novolog 4 units given, c/o rt leg pain level 7/10 on numeric scale, oxyir 5mg & soma 350mg given
[2020-05-26] MEDS: LIDOCAINE PATCH REMOVAL TP SCH (20:29)
--- NOTE | 2020-05-26 21:20 | NUR ---
rates pain 4/10 on numeric scale
[2020-05-27] MEDS: CARISOPRODOL 350 MG (SOMA) TAB PO PRN ×2 (02:58→11:35)
--- NOTE | 2020-05-27 02:58 | NUR ---
c/o rt leg pain, pain level 7/10 on numeric scale, oxyir 5mg & soma 350mg given
--- NOTE | 2020-05-27 03:40 | NUR ---
resting quietly in bed, pain level 0/10 on CNPI SCALE
[2020-05-27 05:58] VITALS: BP 138/62
[2020-05-27] MEDS: inSUlin ASPART (NovoLOG) 1 UNIT/0.01 ML (CHARGE PER UNIT) SC SCH ×4 (06:00→21:00)
[2020-05-27] MEDS: LEVOTHYROXINE 100 MCG (LEVOTHROID) TAB PO SCH (06:32)
[2020-05-27 09:00] VITALS: BP 119/59
--- NOTE | 2020-05-27 09:23 | Occupational Ther Daily Note ---
OT Current Status-Daily Note Subjective Pt seated in w/c, agreeable to OT Tx. ADL-Treatment Therapy Code Descriptions/Definitions Functional [place] Measure: 0=Not Assessed/NA 4=Minimal Assistance 1=Total Assistance 5=Supervision or Setup 2=Maximal Assistance 6=Modified [place] 3=Moderate Assistance 7=Complete IndependenceSCALE: Activities may be completed with or without assistive devices. 8-Yltxnvphnw-ijjebdc completes the activity by him/herself with no assistance from a helper. 5-Set-up or Clean-up Assistance-helper sets up or cleans up; patient completes activity. [place] assists only prior to or following the activity. 4-Supervision or Touching Assistance-helper provides verbal cues and/or touching/steadying and/or contact guard assistance as patient completes activity. Assistance may be provided throughout the activity or intermittently. 3-Partial/Moderate Assistance-helper does LESS THAN HALF the effort. [place] lifts, holds or supports trunk or limbs, but provides less than half the effort. 2-Substantial/Maximal Assistance-helper does MORE THAN HALF the effort. [place] lifts or holds trunk or limbs and provides more than half the effort. 3-Royrrhobe-rrqdky does ALL the effort. Patient does none of the effort to com plete the activity. Or, the assistance of 2 or more helpers is required for the patient to complete the activity. If activity was not attempted, code reason: 7-Patient Refused. 9-Not Applicable-not attempted and the patient did not perform the activity before the current illness, exacerbation or injury. 10-Not Attempted due to Environmental Limitations-(lack of equipment, weather restraints, etc.). 88-Not Attempted due to Medical Conditions or Safety Concerns. Other Treatment OT/PT cotreat [id number]: OT/PT cotreat due to skill of 2 skilled clinicians required which a director of cardiac rehabilitation could not perform in order to coordinate UE/LEs, provide education for family training, to decrease fall risk, and increase functional balance/transfers. OT focused on UE placement, cues for sequencing and safety, and ADLs while PT focused on functional transfers, LE placement, gross overall movements. Pt and OT/PT discussed challenges pt foresees with discharging home, including step into master bedroom area and small bathroom doorway. OT and PT discussed safety aspects with pt's concerns. OT reminded pt of discussion during yesterdays tx, where pt agreed she needs a BSC if she cannot get into the bathroom and pt's plans to stay in the spare room so she does not have to go up the step. Pt initially hesitant but then agreed. Pt then self-propelled w/c to parallel bars, pt stood at bars and ambulated length. Pt reports difficulty due to splint on LUE, OT informed pt she needed to keep splint on to let bones in her hand heal, pt also unable to follow NWB precautions in RLE. Pt sat back on the w/c and again brought up issue of not being able to get into her bedroom due to step. OT/PT educated pt on safety and importance of maintaining precautions in LUE/RLE in order to healing to occur, pt verbalized understanding. Pt's son arrived, education and demonstration provided on SPT with and without a walker between surfaces, pt's son able to complete transfers with supervision of therapists. [id number] OT TX: OT educated pt's son on how to properly apply gait belt, pt's son demonstrated understanding. Pt taken back to her room, pt's son educated on recommendations for BSC if pt is unable to get w/c into bathroom, he verbalized understanding. Pt's son also informed of how to cover pt's RLE prior to showers and assistance pt requires with ADLs. Pt requested to use the toilet, transferring w/c to toilet, CGA using GBs. Pt completed toileting, then returned to the w/c. Post OT tx, pt seated in recliner, call light in reach and all needs met. Education OT Patient Education: Correct positioning, Energy conservation, Instructions to caregiver, Modified ADL techniques, Progress toward Goal/Update tx plan, Purpose of tx/functional activities, Safety issues, Transfer techniques, Use of adapted equipment Teaching Recipient: Patient, Family Teaching Methods: Demonstration, Discussion Response to Teaching: Verbalize Understanding, Return Demonstration OT Short Term Goals Short Term Goals Time Frame: May 24, 2020 Shower/bathe self: 3 Lower body dressin Putting on/taking off footwear: 3 OT Alf Goals Alf Goals Time Frame: Jun 03, 2020 Eating (QC): 6 Oral Hygiene (QC): 6 Toileting Hygiene (QC): 6 Shower/Bathe Self (QC): 6 Upper Body Dressing (QC): 6 Lower Body Dressing (QC): 6 On/Off Footwear (QC): 6 Additional Goals: 1-Demonstrate ADL Tasks, 2-Verbalize Understanding, 3- ImproveStrength/Jameel 1=Demonstrate adherence to instructed precautions during ADL tasks. 2=Patient will verbalize/demonstrate understanding of assistive devices/modifications for ADL. 3=Patient will improve strength/tolerance for activity to enable patient to perform ADL's. OT Education/Plan Problem List/Assessment Assessment: Decreased Activ Tolerance, Decreased UE Strength, Impaired I ADL's, Impaired Self-Care Skills Discharge Recommendations Plan/Recommendations: Continue POC Treatment Plan/Plan of Care Patient would benefit from OT for education, treatment and training to promote independence in ADL's, mobility, safety and/or upper extremity function for ADL's. Plan of Care: ADL Retraining, Functional Mobility, Group Exercise/Act as Ind, U E Funct Exercise/Act, W/C Management Training Treatment Duration: Jun 03, 2020 Frequency: Modified Program (IRF) (24/03) Estimated Hrs Per Day: 1.5 hours per day Agreement: Yes Rehab Potential: Fair Time/GCodes Start Time: 10:00 Stop Time: 11:15 Total Time Billed (hr/min): 75 Billed Treatment Time OT/PT cotreat x60' [id number] OT tx 20' 1421-3200 1, FA 3 (45'), ADL 2 (30') JUAN JOSE BREWSTER OT May 27, 2020 09:23
[2020-05-27] MEDS: CALCIUM CARB + VIT D 600 MG (CALCARB + D) TAB PO SCH (09:30)
[2020-05-27] MEDS: SENNA W/DOCUSATE (SENOKOT S) TABLET PO SCH ×2 (09:31→20:59)
[2020-05-27] MEDS: LACTOBACILLUS ACIDOPHILUS (PROBIOTIC) CAPSULE PO SCH ×2 (09:31→20:59)
[2020-05-27] MEDS: DOCUSATE SODIUM 100 MG (COLACE) CAP PO SCH ×2 (09:31→20:59)
[2020-05-27] MEDS: PANTOPRAZOLE 40 MG (PROTONIX) TAB PO SCH (09:31)
[2020-05-27] MEDS: ENOXAPARIN 30 MG/0.3 ML (LOVENOX) SYR SQ SCH ×2 (09:31→21:00)
[2020-05-27] MEDS: OMEGA 3 (FISH OIL) 1000 MG CAP PO SCH (09:32)
[2020-05-27] MEDS: PREGABALIN 100 MG (LYRICA) CAPSULE PO SCH ×2 (09:32→20:59)
[2020-05-27] MEDS: PARoxetine 20 MG (PAXIL) TAB PO SCH (09:32)
[2020-05-27] MEDS: LIDOCAINE 4% (SALONPAS) PATCH TP SCH (09:34)
[2020-05-27] MEDS: polyethylene glycoL POWDER 17 GM (MIRALAX) PACK PO SCH (09:34)
[2020-05-27] MEDS: LOSARTAN 100 MG (COZAAR) TABLET PO SCH (09:40)
[2020-05-27] MEDS: ADVAIR HFA 115/21 MCG INHALER 8 GM IH SCH ×2 (10:53→19:25)
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
[2020-05-27] MEDS: ONDANSETRON 4 MG (ZOFRAN) ORAL DISSOLVE TAB PO PRN (11:36)
--- NOTE | 2020-05-27 12:07 | Physical Therapy Daily Note ---
PT Daily Note-Current Subjective Pt presents upright in wheelchair in room. Pt agrees to therapy and her son being present for education and training. Pt reports no pain. Appearance At the conclusion of PT tx, patient is sitting upright in wheelchair in rehab gym. Pt is left under the care of OT and her son. Mental Status Patient Orientation: Person, Place, Time, Eyes Open, Situation Transfers SCALE: Activities may be completed with or without assistive devices. 1-Izygxnjnbu-ehdllkb completes the activity by him/herself with no assistance from a helper. 5-Set-up or Clean-up Assistance-helper sets up or cleans up; patient completes activity. [place] assists only prior to or following the activity. 4-Supervision or Touching Assistance-helper provides verbal cues and/or touching/steadying and/or contact guard assistance as patient completes activity. Assistance may be provided throughout the activity or intermittently. 3-Partial/Moderate Assistance-helper does LESS THAN HALF the effort. [place] lifts, holds or supports trunk or limbs, but provides less than half the effort. 2-Substantial/Maximal Assistance-helper does MORE THAN HALF the effort. [place] lifts or holds trunk or limbs and provides more than half the effort. 7-Vfkyapjxu-xsnzkt does ALL the effort. Patient does none of the effort to complete the activity. Or, the assistance of 2 or more helpers is required for the patient to complete the activity. If activity was not attempted, code reason: 7-Patient Refused. 9-Not Applicable-not attempted and the patient did not perform the activity before the current illness, exacerbation or injury. 10-Not Attempted due to Environmental Limitations-(lack of equipment, weather restraints, etc.). 88-Not Attempted due to Medical Conditions or Safety Concerns. Sit to Lying (QC): 4 Lying to Sitting/Side of Bed(Q: 3 Sit to Stand (QC): 4 Chair/Zox-da-Sycso Xfer(QC): 4 Weight Bearing Right Lower Extremity: Right Non Weight Bearing Gait Training Distance: 10' Walk 10 feet (QC): 4 Gait Assistive Device: Parallel Bars Pt is uncompliant to weightbearing precautions of R LE and L UE; therefore pt was advised against walking at this time. Wheelchair Training Does the Pt Use a Wheelchair?: Yes Wheel 50 ft with 2 turns (QC): 4 Wheel 150 ft (QC): 4 Type of Wheelchair: Manual Treatments Family Education on transfers Assessment Current Status: Fair Progress Pt has decreased in her confidence of going home, she is unsure if she will have 02/04 care available and of the accessibility of her home. Pt's son is active learning to assist her transfers with and without walker; he is able to reciprocate teach-back of technique. PT Short Term Goals Short Term Goals Time Frame: May 20, 2020 Roll Left & Right: 3 Sit to lyin Lying to sitting on side of be: 3 Sit to stand: 3 Chair/plo-sz-ddyiw transfer: 3 PT Professional Organizer Goals [facility] Goals PT Professional Organizer Goals Time Frame: Jun 03, 2020 Roll Left & Right (QC): 4 Sit to Lying (QC): 4 Lying-Sitting on Side/Bed(QC): 4 Sit to Stand (QC): 4 Chair/Eau-lr-Zyupe Xfer(QC): 4 Toilet Transfer (QC): 4 Car Transfer (QC): 3 Does the Patient Walk: No and Walking Goal IS indicated Walk 10 feet (QC): 3 Walk 50ft with 2 Turns (QC): 3 Walk 150 ft (QC): 88 Walking 10ft on Uneven Surface: 3 1 Step (curb) (QC): 3 4 Steps (QC): 88 12 Steps (QC): 88 Picking up an Object (QC): 88 Wheel 50 feet with 2 turns (QC: 6 Wheel 150 feet: 6 PT Plan Problem List Problem List: Activity Tolerance, Functional Strength, Safety, Balance, Gait, Transfer, Bed Mobility, ROM Treatment/Plan Treatment Plan: Continue Plan of Care Treatment Plan: Bed Mobility, Education, Functional Activity Jameel, Functional Strength, Group Therapy, Gait, Safety, Therapeutic Exercise, Transfers Treatment Duration: Jun 03, 2020 Frequency: Modified Program ([facility]) (24/03) Estimated Hrs Per Day: 1.5 hours per day Patient and/or Family Agrees t: Yes Safety Risks/Education Patient Education: Gait Training, Transfer Techniques, Reviewed Precautions, Correct Positioning, W/C Management, Safety Issues Teaching Recipient: Patient, Family Teaching Methods: Demonstration, Discussion Response to Teaching: Verbalize Understanding, Return Demonstration, Reinforcement Needed Time/GCodes Time In: 1000 Time Out: 1100 Total Billed Treatment Time: 60 Total Billed Treatment 1 visit FA 60' co-treat with OT for 60'. PT performed bed mobility and transfer training with patient and family, OT assisted and did UE positioning and safety during activity. ARYA RIGGS PT May 27, 2020 12:07
--- NOTE | 2020-05-27 13:40 | NUR ---
PT LEFT FLOOR FOR CT SCAN.
--- NOTE | 2020-05-27 13:54 | NUR ---
PT RETURNED TO FLOOR FROM CT SCAN.
--- NOTE | 2020-05-27 14:25 | Physical Therapy Daily Note ---
PT Daily Note-Current Subjective Pt presents in room sitting upright in wheelchair. Pt reports no pain and agrees to PT. Appearance After PT tx is concluded pt is assisted into bed. Pt has access to tray, call button, and all needs have been met. Mental Status Patient Orientation: Person, Place, Time, Eyes Open, Situation Transfers SCALE: Activities may be completed with or without assistive devices. 0-Dnekdfuefj-wesqzmf completes the activity by him/herself with no assistance from a helper. 5-Set-up or Clean-up Assistance-helper sets up or cleans up; patient completes activity. [place] assists only prior to or following the activity. 4-Supervision or Touching Assistance-helper provides verbal cues and/or touching/steadying and/or contact guard assistance as patient completes activity. Assistance may be provided throughout the activity or intermittently. 3-Partial/Moderate Assistance-helper does LESS THAN HALF the effort. [place] lifts, holds or supports trunk or limbs, but provides less than half the effort. 2-Substantial/Maximal Assistance-helper does MORE THAN HALF the effort. [place] lifts or holds trunk or limbs and provides more than half the effort. 0-Kxcfklfqy-htefba does ALL the effort. Patient does none of the effort to complete the activity. Or, the assistance of 2 or more helpers is required for the patient to complete the activity. If activity was not attempted, code reason: 7-Patient Refused. 9-Not Applicable-not attempted and the patient did not perform the activity before the current illness, exacerbation or injury. 10-Not Attempted due to Environmental Limitations-(lack of equipment, weather restraints, etc.). 88-Not Attempted due to Medical Conditions or Safety Concerns. Sit to Lying (QC): 4 Sit to Stand (QC): 4 Chair/Dvj-cr-Igkfq Xfer(QC): 4 Weight Bearing Right Lower Extremity: Right Non Weight Bearing Wheelchair Training Does the Pt Use a Wheelchair?: Yes Wheel 50 ft with 2 turns (QC): 4 Wheel 150 ft (QC): 4 Type of Wheelchair: Manual 400' Treatments Wheelchair mobility Assessment Current Status: Good Progress Pt able to propel and steer self in wheelchair; pt enjoyed seeing a new window view. Pt reminded of the amount of progress she's made since admission to [facility]; pt does not remember her first day here; pt now able to stand-pivot transfer with CGA. PT Short Term Goals Short Term Goals Time Frame: May 20, 2020 Roll Left & Right: 3 Sit to lyin Lying to sitting on side of be: 3 Sit to stand: 3 Chair/rsn-ci-pbuec transfer: 3 PT [facility] Goals [facility] Goals PT Station Supervisor Goals Time Frame: Jun 03, 2020 Roll Left & Right (QC): 4 Sit to Lying (QC): 4 Lying-Sitting on Side/Bed(QC): 4 Sit to Stand (QC): 4 Chair/Mon-xo-Wcvll Xfer(QC): 4 Toilet Transfer (QC): 4 Car Transfer (QC): 3 Does the Patient Walk: No and Walking Goal IS indicated Walk 10 feet (QC): 3 Walk 50ft with 2 Turns (QC): 3 Walk 150 ft (QC): 88 Walking 10ft on Uneven Surface: 3 1 Step (curb) (QC): 3 4 Steps (QC): 88 12 Steps (QC): 88 Picking up an Object (QC): 88 Wheel 50 feet with 2 turns (QC: 6 Wheel 150 feet: 6 PT Plan Problem List Problem List: Activity Tolerance, Functional Strength, Safety, Balance, Gait, Transfer, Bed Mobility, ROM Treatment/Plan Treatment Plan: Continue Plan of Care Treatment Plan: Bed Mobility, Education, Functional Activity Jameel, Functional Strength, Group Therapy, Gait, Safety, Therapeutic Exercise, Transfers Treatment Duration: Jun 03, 2020 Frequency: Modified Program (IRF) (24/03) Estimated Hrs Per Day: 1.5 hours per day Patient and/or Family Agrees t: Yes Safety Risks/Education Patient Education: Transfer Techniques, Reviewed Precautions, W/C Management, Safety Issues Teaching Recipient: Patient Teaching Methods: Demonstration, Discussion Response to Teaching: Reinforcement Needed Time/GCodes Time In: 1400 Time Out: 1420 Total Billed Treatment Time: 20 Total Billed Treatment 1 visit FA 20' ARYA RIGGS PT May 27, 2020 14:25
[2020-05-27] MEDS ORDERED: AMLO10TA7 PO (14:37)
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
[2020-05-27] MEDS: DIAZEPAM 5 MG (VALIUM) TABLET PO PRN (14:38)
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
--- NOTE | 2020-05-27 16:05 | NUR ---
CM/SS CONCURRENT DOCUMENTATION Summary of two days case management activities. Son Axel Sanchez came this morning to participate in family education/training with therapy team regarding patient care at home. Axel and the therapy staff were all in agreement he was able to perform patient assist safely. Axel and his sister are in the process of preparing patient's home for her return, the target discharge is 05/31/20 at 1100. Axel will transport. HHC: [facility] referral will be completed with final discharge orders/instructions to be provided when available. DME: Manager Case Management has already alerted patient's established DME agency, [facility], for wheelchair and BSC need. Referral initiated, will provide orders once received from physician. Multiple telephone exchanges with patient's daughter Lillian Li in [place]. Positive about wanting what is best for patient, obviously challenging for her to be so far away and unavailable in person to help. She indicates she has been in contact with her local siblings via conference call and that they continue to talk things through and share concerns amongst themselves. Lillian and telegraphic typewriter operator explored all other options alternate to patient returning home. On the downside, patient has Medicaid only and would not be a prime candidate for acceptance to any retirement facility due to no skilled benefits. Additionally, many regional facilities are on a no-admit status due to Covid influenced issues. Patient does not require a SNF environment, ARU team recommends support and assist at least until her orthopedic followup 06/08/20 at which time she may have a weight bear status change and/or cast or boot. Her continued care assist to be reviewed and determined after that appointment. Continue to monitor for progress and any changes warranting an alternate discharge plan.
[2020-05-27 16:53] VITALS: BP 110/64
[2020-05-27] MEDS: MONTELUKAST 10 MG (SINGULAIR) TAB PO SCH (20:59)
[2020-05-27] MEDS: MELATONIN 3 MG TABLET PO PRN (20:59)
[2020-05-27] MEDS: LIDOCAINE PATCH REMOVAL TP SCH (21:00)
[2020-05-28] MEDS: CARISOPRODOL 350 MG (SOMA) TAB PO PRN ×3 (04:36→21:34)
[2020-05-28 05:55] VITALS: BP 131/60
[2020-05-28] MEDS: inSUlin ASPART (NovoLOG) 1 UNIT/0.01 ML (CHARGE PER UNIT) SC SCH ×4 (06:08→21:25)
[2020-05-28] MEDS: LEVOTHYROXINE 100 MCG (LEVOTHROID) TAB PO SCH (06:26)
[2020-05-28] MEDS: ADVAIR HFA 115/21 MCG INHALER 8 GM IH SCH ×2 (06:58→20:41)
[2020-05-28 08:00] VITALS: BP 113/55
--- NOTE | 2020-05-28 08:57 | Physical Therapy Daily Note ---
PT Daily Note-Current Subjective Pt presents asleep in bed. Pt is woken and agrees to PT. Pt reports 7/10 pain, she has already had pain meds, nurse aware of pain. Appearance After PT tx patient is sitting upright in wheelchair in room; pt has access to tray, call button, all needs have been met and nurses aid is present in room. Mental Status Patient Orientation: Person, Place, Time, Eyes Open, Situation Transfers SCALE: Activities may be completed with or without assistive devices. 7-Gtjclqynim-cbhfcup completes the activity by him/herself with no assistance from a helper. 5-Set-up or Clean-up Assistance-helper sets up or cleans up; patient completes activity. [place] assists only prior to or following the activity. 4-Supervision or Touching Assistance-helper provides verbal cues and/or touching/steadying and/or contact guard assistance as patient completes activity. Assistance may be provided throughout the activity or intermittently. 3-Partial/Moderate Assistance-helper does LESS THAN HALF the effort. [place] lifts, holds or supports trunk or limbs, but provides less than half the effort. 2-Substantial/Maximal Assistance-helper does MORE THAN HALF the effort. [place] lifts or holds trunk or limbs and provides more than half the effort. 9-Rhcrjbeuz-nhxiyx does ALL the effort. Patient does none of the effort to complete the activity. Or, the assistance of 2 or more helpers is required for the patient to complete the activity. If activity was not attempted, code reason: 7-Patient Refused. 9-Not Applicable-not attempted and the patient did not perform the activity before the current illness, exacerbation or injury. 10-Not Attempted due to Environmental Limitations-(lack of equipment, weather restraints, etc.). 88-Not Attempted due to Medical Conditions or Safety Concerns. Lying to Sitting/Side of Bed(Q: 4 Sit to Stand (QC): 4 Chair/Dqd-in-Sufgv Xfer(QC): 4 Weight Bearing Right Lower Extremity: Right Non Weight Bearing Wheelchair Training Does the Pt Use a Wheelchair?: Yes Wheel 50 ft with 2 turns (QC): 4 Wheel 150 ft (QC): 4 Type of Wheelchair: Manual Pt able to maneuver around cone obstacles. 600' Exercises Seated Therapy Exercises: Ankle pumps, Long arc quads, Hip abd/add Seated Reps: 20 Standing: Sit to Stand Standing Reps: 30 Treatments LE strengthening and wheelchair mobility Assessment Current Status: Good Progress Pt has improved ability to stand-pivot transfer with and without a walker. Pt is successful in maneuvering around tight corners and obstacles in wheelchair. Velcro tape replaced on hand brace. PT Short Term Goals Short Term Goals Time Frame: May 20, 2020 Roll Left & Right: 3 Sit to lyin Lying to sitting on side of be: 3 Sit to stand: 3 Chair/amn-dm-fqwmn transfer: 3 PT Nursing Home Goals Chief Engineer [employer]illing [employer] Recovery Goals PT Chief Engineer [employer]illing And Recovery Goals Time Frame: Jun 03, 2020 Roll Left & Right (QC): 4 Sit to Lying (QC): 4 Lying-Sitting on Side/Bed(QC): 4 Sit to Stand (QC): 4 Chair/Onh-xd-Hozpm Xfer(QC): 4 Toilet Transfer (QC): 4 Car Transfer (QC): 3 Does the Patient Walk: No and Walking Goal IS indicated Walk 10 feet (QC): 3 Walk 50ft with 2 Turns (QC): 3 Walk 150 ft (QC): 88 Walking 10ft on Uneven Surface: 3 1 Step (curb) (QC): 3 4 Steps (QC): 88 12 Steps (QC): 88 Picking up an Object (QC): 88 Wheel 50 feet with 2 turns (QC: 6 Wheel 150 feet: 6 PT Plan Problem List Problem List: Activity Tolerance, Functional Strength, Safety, Balance, Gait, Transfer, Bed Mobility, ROM Treatment/Plan Treatment Plan: Continue Plan of Care Treatment Plan: Bed Mobility, Education, Functional Activity Jameel, Functional Strength, Group Therapy, Gait, Safety, Therapeutic Exercise, Transfers Treatment Duration: Jun 03, 2020 Frequency: Modified Program (IRF) (24/03) Estimated Hrs Per Day: 1.5 hours per day Patient and/or Family Agrees t: Yes Safety Risks/Education Patient Education: Transfer Techniques, Reviewed Precautions, W/C Management, Safety Issues Teaching Recipient: Patient Teaching Methods: Demonstration, Discussion Response to Teaching: Reinforcement Needed Time/GCodes Time In: 0800 Time Out: 0900 Total Billed Treatment Time: 60 Total Billed Treatment 1 visit EX 30' FA 30' ARYA RIGGS PT May 28, 2020 08:57
[2020-05-28] MEDS: DOCUSATE SODIUM 100 MG (COLACE) CAP PO SCH ×2 (09:01→21:26)
[2020-05-28] MEDS: LOSARTAN 100 MG (COZAAR) TABLET PO SCH (09:01)
[2020-05-28] MEDS: PARoxetine 20 MG (PAXIL) TAB PO SCH (09:01)
[2020-05-28] MEDS: CALCIUM CARB + VIT D 600 MG (CALCARB + D) TAB PO SCH (09:01)
[2020-05-28] MEDS: PREGABALIN 100 MG (LYRICA) CAPSULE PO SCH ×2 (09:01→21:26)
[2020-05-28] MEDS: LACTOBACILLUS ACIDOPHILUS (PROBIOTIC) CAPSULE PO SCH ×2 (09:01→21:26)
[2020-05-28] MEDS: OMEGA 3 (FISH OIL) 1000 MG CAP PO SCH (09:01)
[2020-05-28] MEDS: ENOXAPARIN 30 MG/0.3 ML (LOVENOX) SYR SQ SCH ×2 (09:01→20:02)
[2020-05-28] MEDS: PANTOPRAZOLE 40 MG (PROTONIX) TAB PO SCH (09:01)
[2020-05-28] MEDS: SENNA W/DOCUSATE (SENOKOT S) TABLET PO SCH ×2 (09:02→21:26)
[2020-05-28] MEDS: polyethylene glycoL POWDER 17 GM (MIRALAX) PACK PO SCH (09:02)
[2020-05-28] MEDS: LIDOCAINE 4% (SALONPAS) PATCH TP SCH (09:02)
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
--- NOTE | 2020-05-28 10:24 | Occupational Ther Daily Note ---
OT Current Status-Daily Note Subjective Pt seated in recliner, agreeable to OT Tx with focus on ADLs. ADL-Treatment Therapy Code Descriptions/Definitions Functional [place] Measure: 0=Not Assessed/NA 4=Minimal Assistance 1=Total Assistance 5=Supervision or Setup 2=Maximal Assistance 6=Modified [place] 3=Moderate Assistance 7=Complete IndependenceSCALE: Activities may be completed with or without assistive devices. 7-Bbjpmzpbim-fdewudz completes the activity by him/herself with no assistance from a helper. 5-Set-up or Clean-up Assistance-helper sets up or cleans up; patient completes activity. [place] assists only prior to or following the activity. 4-Supervision or Touching Assistance-helper provides verbal cues and/or touchin g/steadying and/or contact guard assistance as patient completes activity. Assistance may be provided throughout the activity or intermittently. 3-Partial/Moderate Assistance-helper does LESS THAN HALF the effort. [place] lifts, holds or supports trunk or limbs, but provides less than half the effort. 2-Substantial/Maximal Assistance-helper does MORE THAN HALF the effort. [place] lifts or holds trunk or limbs and provides more than half the effort. 9-Ejyoriabh-ixalzd does ALL the effort. Patient does none of the effort to complete the activity. Or, the assistance of 2 or more helpers is required for the patient to complete the activity. If activity was not attempted, code reason: 7-Patient Refused. 9-Not Applicable-not attempted and the patient did not perform the activity before the current illness, exacerbation or injury. 10-Not Attempted due to Environmental Limitations-(lack of equipment, weather restraints, etc.). 88-Not Attempted due to Medical Conditions or Safety Concerns. Eating (QC): 6 Shower/Bathe Self (QC): 5 (set up, pt able to wash all parts at [place] after OT covered RLE) Upper Body Dressing (QC): 5 (set up) Lower Body Dressing (QC): 4 (SBA in stance to manage pants up.) On/Off Footwear: 6 (Pt able to use AE to independently tyler/doff slipper socks, increased time with task.) Other Treatment Pt seated in w/c, taken into bathroom, transferring to [place] using GBs and SBA. OT set up shower area for pt, and covered pt's RLE prior to shower. Pt completed showering, dried off, and dressed at [place]. She transferred back to w/c using GBs and SBA. Pt then self-propelled w/c out of bathroom and into bedroom, she independently brushed her hair. Post OT tx, pt seated in w/c, call light in reach and all needs met. Education OT Patient Education: Correct positioning, Energy conservation, Modified ADL techniques, Progress toward Goal/Update tx plan, Safety issues, Transfer techniques, Use of adapted equipment Teaching Recipient: Patient Teaching Methods: Discussion Response to Teaching: Verbalize Understanding OT Short Term Goals Short Term Goals Time Frame: May 24, 2020 Shower/bathe self: 3 Lower body dressin Putting on/taking off footwear: 3 OT Director Internal Communications Goals Director Internal Communications Goals Time Frame: Jun 03, 2020 Eating (QC): 6 Oral Hygiene (QC): 6 Toileting Hygiene (QC): 6 Shower/Bathe Self (QC): 6 Upper Body Dressing (QC): 6 Lower Body Dressing (QC): 6 On/Off Footwear (QC): 6 Additional Goals: 1-Demonstrate ADL Tasks, 2-Verbalize Understanding, 3-ImproveStrength/Jameel 1=Demonstrate adherence to instructed precautions during ADL tasks. 2=Patient will verbalize/demonstrate understanding of assistive devices/modifications for ADL. 3=Patient will improve strength/tolerance for activity to enable patient to perform ADL's. OT Education/Plan Problem List/Assessment Assessment: Decreased Activ Tolerance, Decreased UE Strength, Impaired Funct Balance, Impaired I ADL's, Impaired Self-Care Skills Discharge Recommendations Plan/Recommendations: Continue POC Treatment Plan/Plan of Care Patient would benefit from OT for education, treatment and training to promote independence in ADL's, mobility, safety and/or upper extremity function for ADL's. Plan of Care: ADL Retraining, Functional Mobility, Group Exercise/Act as Ind, UE Funct Exercise/Act, W/C Management Training Treatment Duration: Jun 03, 2020 Frequency: Modified Program (IRF) (24/03) Estimated Hrs Per Day: 1.5 hours per day Agreement: Yes Rehab Potential: Fair Time/GCodes Start Time: 10:00 Stop Time: 11:00 Total Time Billed (hr/min): 60 Billed Treatment Time 1, ADL 4 JUAN JOSE BREWSTER OT May 28, 2020 10:24
--- NOTE | 2020-05-28 11:54 | NUR ---
CM/SS DISCHARGE PLANNING [facility]: Provided orders for wheelchair and BSC to [facility]. Agency is working to complete order and will contact son Axel Sanchez directly about possibly picking up these items prior to bringing patient home. Updated Axel re same. [facility]: Referral completed with [facility] and services RN PT OT will begin 06/01/20. During phone visit with Axel, he indicated he had spoken with his siblings last evening on a conference call and they were all in agreement about the plan. They are recruiting friends who may be able to assist a bit as well, including Axel's girlfriend. Axel was very positive and affirmed that they are ready to receive her on Sunday, picking belt operator time still 1100. He voiced a clear understanding of patient's limitations and needs and that he has applied for unemployment for this interim he is tending to her while applying for work. Call from daughter Lillian Li in [place] moments ago indicating there was no one here to really help her mother and that she was considering getting on a plane with her to come participate. Based on present children and their updates to ghost writer, moving forward on all final discharge plans as agreed upon. Followup Sunday. Addendum: 05/28/20 at 1211 by RICHARD PAINTER DME: Both patient and son understand that the hip kit items/admissions representative are not covered by insurance and are private pay purchases. Son indicated he would picking belt operator for patient.
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
--- NOTE | 2020-05-28 14:39 | Therapy Group Daily Note ---
Therapy Daily Group Note Patient Education Topic Exercises, Other List Below (transfer skills, bed mobility, ARU description) Exercises LE Seated Exercise, UE Exercise Session Ratio (pt:therapist): 4:1 Goal of Session: Education on ARU Expectations, UE/LE Strengthing Goal Met for this Session: Yes Pt Benefit of Group: Contributions to Others, Increased Functional Safety, Increased Functional Strength, Improved Cognition, Recognition of Peers, Socialization Other/Notes Pt transported via w/c to OT/PT group in [facility]. Group consisted of introductions (name, place living, best advice given), socialization, seated UE/LE exercises, educational topics of ARU description/bed mobility and transfers. Pt introduced self appropriately and actively listened to peers. Pt acknowledged understanding of educational topics by contributing to group discussions and given personal strategies. Pt held peer to peer conversations and was able to give positive affirmations about self and peers. After group, pt lying in bed with call light/phone in reach. All needs met in room. Start Time: 13:00 Stop Time: 14:15 Total Billed Treatment Time: 75 Total Billed Treatment 1-GRP TAWNYA BYNUM May 28, 2020 14:39
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
[2020-05-28 16:00] VITALS: BP 157/70
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
[2020-05-28] MEDS: DIAZEPAM 5 MG (VALIUM) TABLET PO PRN (16:36)
[2020-05-28] MEDS: MONTELUKAST 10 MG (SINGULAIR) TAB PO SCH (21:26)
[2020-05-28] MEDS: MELATONIN 3 MG TABLET PO PRN (21:26)
[2020-05-28] MEDS: LIDOCAINE PATCH REMOVAL TP SCH (21:27)
[2020-05-29 05:20] VITALS: BP 152/64
[2020-05-29] MEDS: inSUlin ASPART (NovoLOG) 1 UNIT/0.01 ML (CHARGE PER UNIT) SC SCH ×4 (05:32→20:22)
[2020-05-29] MEDS: CARISOPRODOL 350 MG (SOMA) TAB PO PRN ×3 (06:23→20:24)
[2020-05-29] MEDS: LEVOTHYROXINE 100 MCG (LEVOTHROID) TAB PO SCH (06:23)
[2020-05-29] MEDS: ADVAIR HFA 115/21 MCG INHALER 8 GM IH SCH ×2 (07:38→18:28)
[2020-05-29] MEDS: ENOXAPARIN 30 MG/0.3 ML (LOVENOX) SYR SQ SCH ×2 (09:19→20:25)
[2020-05-29] MEDS: LOSARTAN 100 MG (COZAAR) TABLET PO SCH (09:20)
[2020-05-29] MEDS: PREGABALIN 100 MG (LYRICA) CAPSULE PO SCH ×2 (09:20→20:24)
[2020-05-29] MEDS: SENNA W/DOCUSATE (SENOKOT S) TABLET PO SCH ×2 (09:20→20:24)
[2020-05-29] MEDS: CALCIUM CARB + VIT D 600 MG (CALCARB + D) TAB PO SCH (09:20)
[2020-05-29] MEDS: PANTOPRAZOLE 40 MG (PROTONIX) TAB PO SCH (09:20)
[2020-05-29] MEDS: DOCUSATE SODIUM 100 MG (COLACE) CAP PO SCH ×2 (09:20→20:24)
[2020-05-29] MEDS: PARoxetine 20 MG (PAXIL) TAB PO SCH (09:20)
[2020-05-29] MEDS: OMEGA 3 (FISH OIL) 1000 MG CAP PO SCH (09:20)
[2020-05-29] MEDS: LACTOBACILLUS ACIDOPHILUS (PROBIOTIC) CAPSULE PO SCH ×2 (09:21→20:24)
[2020-05-29] MEDS: LIDOCAINE 4% (SALONPAS) PATCH TP SCH (09:21)
[2020-05-29] MEDS: polyethylene glycoL POWDER 17 GM (MIRALAX) PACK PO SCH (09:21)
[2020-05-29] MEDS: DIAZEPAM 5 MG (VALIUM) TABLET PO PRN (10:02)
--- NOTE | 2020-05-29 10:59 | Physical Therapy Daily Note ---
PT Daily Note-Current Subjective Pt sitting in [facility] in room upon arrival. Pt agrees to PT. Pain Numeric Pain Scale: 5-Moderate Pain Location: Left Location Body Site: Back Pain Description: Ache Comment: Pt reports pain in back as well as R LE Mental Status Patient Orientation: Person, Place, Situation Transfers SCALE: Activities may be completed with or without assistive devices. 4-Gbxlfctyit-gkvqvsi completes the activity by him/herself with no assistance from a helper. 5-Set-up or Clean-up Assistance-helper sets up or cleans up; patient completes activity. [place] assists only prior to or following the activity. 4-Supervision or Touching Assistance-helper provides verbal cues and/or touching/steadying and/or contact guard assistance as patient completes act ivity. Assistance may be provided throughout the activity or intermittently. 3-Partial/Moderate Assistance-helper does LESS THAN HALF the effort. [place] lifts, holds or supports trunk or limbs, but provides less than half the effort. 2-Substantial/Maximal Assistance-helper does MORE THAN HALF the effort. [place] lifts or holds trunk or limbs and provides more than half the effort. 7-Aluupleda-qjcanf does ALL the effort. Patient does none of the effort to complete the activity. Or, the assistance of 2 or more helpers is required for the patient to complete the activity. If activity was not attempted, code reason: 7-Patient Refused. 9-Not Applicable-not attempted and the patient did not perform the activity before the current illness, exacerbation or injury. 10-Not Attempted due to Environmental Limitations-(lack of equipment, weather restraints, etc.). 88-Not Attempted due to Medical Conditions or Safety Concerns. Sit to Lying (QC): 5 Sit to Stand (QC): 5 Chair/Iww-sa-Mxstl Xfer(QC): 5 Weight Bearing Right Lower Extremity: Right Non Weight Bearing Wheelchair Training Does the Pt Use a Wheelchair?: Yes Type of Wheelchair: Manual Treatments Reviewed written HEP and strategies for pain relief besides medication. Pt asks to TF back to bed to rest R LE. PT resting Supine in bed with pillow under R knee to comfort, all needs met, call light in hand. Assessment Current Status: Good Progress Pt demonstrates a little nervousness about DC in a couple of days. PT Short Term Goals Short Term Goals Time Frame: May 20, 2020 Roll Left & Right: 3 Sit to lyin Lying to sitting on side of be: 3 Sit to stand: 3 Chair/mgr-fs-kuoed transfer: 3 PT [facility] Goals Quality Assurance Clerk Goals PT Quality Assurance Clerk Goals Time Frame: Jun 03, 2020 Roll Left & Right (QC): 4 Sit to Lying (QC): 4 Lying-Sitting on Side/Bed(QC): 4 Sit to Stand (QC): 4 Chair/Ktf-kr-Wfnax Xfer(QC): 4 Toilet Transfer (QC): 4 Car Transfer (QC): 3 Does the Patient Walk: No and Walking Goal IS indicated Walk 10 feet (QC): 3 Walk 50ft with 2 Turns (QC): 3 Walk 150 ft (QC): 88 Walking 10ft on Uneven Surface: 3 1 Step (curb) (QC): 3 4 Steps (QC): 88 12 Steps (QC): 88 Picking up an Object (QC): 88 Wheel 50 feet with 2 turns (QC: 6 Wheel 150 feet: 6 PT Plan Problem List Problem List: Activity Tolerance, Functional Strength Treatment/Plan Treatment Plan: Continue Plan of Care Treatment Plan: Bed Mobility, Education, Functional Activity Jameel, Functional Strength, Group Therapy, Gait, Safety, Therapeutic Exercise, Transfers Treatment Duration: Jun 03, 2020 Frequency: Modified Program (IRF) (24/03) Estimated Hrs Per Day: 1.5 hours per day Patient and/or Family Agrees t: Yes Safety Risks/Education Patient Education: Transfer Techniques, Issued Written HEP, Correct Positioning, Safety Issues Teaching Recipient: Patient Teaching Methods: Discussion Response to Teaching: Verbalize Understanding Time/GCodes Time In: 1000 Time Out: 1035 Total Billed Treatment Time: 35 Total Billed Treatment 1, EX (20m) & FA (15m) HANANE IVORY PRINTING SCREEN ASSEMBLER May 29, 2020 10:58
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
--- NOTE | 2020-05-29 14:05 | NUR ---
ASSUMED CARE OF PATIENT. REPORT REC'D FROM KAYLYNN WATSON. AGREE WITH AM ASSESSMENT.
[2020-05-29 18:00] VITALS: BP 144/67
[2020-05-29] MEDS: MONTELUKAST 10 MG (SINGULAIR) TAB PO SCH (20:24)
[2020-05-29] MEDS: LIDOCAINE PATCH REMOVAL TP SCH (20:25)
[2020-05-30] MEDS: CARISOPRODOL 350 MG (SOMA) TAB PO PRN ×3 (04:54→20:51)
[2020-05-30] MEDS: inSUlin ASPART (NovoLOG) 1 UNIT/0.01 ML (CHARGE PER UNIT) SC SCH ×4 (05:10→20:40)
[2020-05-30] MEDS: LEVOTHYROXINE 100 MCG (LEVOTHROID) TAB PO SCH (05:43)
[2020-05-30 05:50] VITALS: BP 149/68
[2020-05-30] MEDS: ADVAIR HFA 115/21 MCG INHALER 8 GM IH SCH ×2 (07:06→19:40)
[2020-05-30] MEDS: PREGABALIN 100 MG (LYRICA) CAPSULE PO SCH ×2 (08:50→20:39)
[2020-05-30] MEDS: PANTOPRAZOLE 40 MG (PROTONIX) TAB PO SCH (08:50)
[2020-05-30] MEDS: LIDOCAINE 4% (SALONPAS) PATCH TP SCH (08:50)
[2020-05-30] MEDS: SENNA W/DOCUSATE (SENOKOT S) TABLET PO SCH ×2 (08:50→20:39)
[2020-05-30] MEDS: LACTOBACILLUS ACIDOPHILUS (PROBIOTIC) CAPSULE PO SCH ×2 (08:50→20:38)
[2020-05-30] MEDS: CALCIUM CARB + VIT D 600 MG (CALCARB + D) TAB PO SCH (08:50)
[2020-05-30] MEDS: PARoxetine 20 MG (PAXIL) TAB PO SCH (08:50)
[2020-05-30] MEDS: DOCUSATE SODIUM 100 MG (COLACE) CAP PO SCH ×2 (08:50→20:38)
[2020-05-30] MEDS: LOSARTAN 100 MG (COZAAR) TABLET PO SCH (08:50)
[2020-05-30] MEDS: OMEGA 3 (FISH OIL) 1000 MG CAP PO SCH (08:50)
[2020-05-30] MEDS: ENOXAPARIN 30 MG/0.3 ML (LOVENOX) SYR SQ SCH ×2 (08:51→20:38)
[2020-05-30 08:58] VITALS: BP 133/72
[2020-05-30] MEDS: polyethylene glycoL POWDER 17 GM (MIRALAX) PACK PO SCH (08:58)
[2020-05-30] MEDS: DIAZEPAM 5 MG (VALIUM) TABLET PO PRN (09:01)
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
[2020-05-30] MEDS ORDERED: FLUTICASONE NASAL SPRAY (FLONASE) 16 GM BTL NS PRN (12:45)
[2020-05-30] MEDS ORDERED: amLODIPine 10 MG (NORVASC) TAB PO ONE (12:45)
[2020-05-30] MEDS ORDERED: PARO20TA5 PO (12:47)
[2020-05-30] MEDS ORDERED: ENOX30DI4 SQ (12:47)
[2020-05-30] MEDS ORDERED: CARI350T PO (12:47)
[2020-05-30] MEDS ORDERED: DIAZ10TA3 PO (12:47)
[2020-05-30] MEDS ORDERED: INSU100I29 SQ (12:47)
[2020-05-30] MEDS ORDERED: SENN-20 PO (12:47)
[2020-05-30] MEDS ORDERED: OXYC5TAB96 PO (12:47)
[2020-05-30] MEDS ORDERED: FLUT12AE4 IH (12:47)
[2020-05-30] MEDS ORDERED: INSU100I14 SQ (12:47)
[2020-05-30] MEDS ORDERED: DCS100C PO (12:47)
[2020-05-30] MEDS ORDERED: PEN-53 MC (12:47)
[2020-05-30 17:50] VITALS: BP 149/70
[2020-05-30] MEDS: metFORMIN XR 500 MG (GLUCOPHAGE XR) TAB PO SCH (20:39)
[2020-05-30] MEDS: MONTELUKAST 10 MG (SINGULAIR) TAB PO SCH (20:39)
[2020-05-30] MEDS: LIDOCAINE PATCH REMOVAL TP SCH (20:40)
[2020-05-30] MEDS ORDERED: ZOLPIDEM 5 MG (AMBIEN) TAB PO SCH (21:00)
[2020-05-31] MEDS: LEVOTHYROXINE 100 MCG (LEVOTHROID) TAB PO SCH (05:25)
[2020-05-31] MEDS: CARISOPRODOL 350 MG (SOMA) TAB PO PRN (05:25)
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
[2020-05-31] MEDS: LOSARTAN 100 MG (COZAAR) TABLET PO SCH (06:27)
[2020-05-31] MEDS: inSUlin ASPART (NovoLOG) 1 UNIT/0.01 ML (CHARGE PER UNIT) SC SCH (06:27)
[2020-05-31] MEDS: PREGABALIN 100 MG (LYRICA) CAPSULE PO SCH (06:27)
[2020-05-31] MEDS: OMEGA 3 (FISH OIL) 1000 MG CAP PO SCH (06:28)
[2020-05-31] MEDS: CALCIUM CARB + VIT D 600 MG (CALCARB + D) TAB PO SCH (06:28)
[2020-05-31] MEDS: PARoxetine 20 MG (PAXIL) TAB PO SCH (06:28)
[2020-05-31] MEDS: SENNA W/DOCUSATE (SENOKOT S) TABLET PO SCH (06:28)
[2020-05-31] MEDS: DOCUSATE SODIUM 100 MG (COLACE) CAP PO SCH (06:28)
[2020-05-31] MEDS: LACTOBACILLUS ACIDOPHILUS (PROBIOTIC) CAPSULE PO SCH (06:29)
[2020-05-31] MEDS: metFORMIN XR 500 MG (GLUCOPHAGE XR) TAB PO SCH (06:29)
[2020-05-31] MEDS: PANTOPRAZOLE 40 MG (PROTONIX) TAB PO SCH (06:29)
[2020-05-31] MEDS: ENOXAPARIN 30 MG/0.3 ML (LOVENOX) SYR SQ SCH (06:29)
[2020-05-31] MEDS: polyethylene glycoL POWDER 17 GM (MIRALAX) PACK PO SCH (06:33)
[2020-05-31] MEDS: LIDOCAINE 4% (SALONPAS) PATCH TP SCH ×2 (06:42→08:06)
[2020-05-31 06:44] VITALS: BP 142/72
[2020-05-31] MEDS: ADVAIR HFA 115/21 MCG INHALER 8 GM IH SCH (07:29)
[2020-05-31 07:38] VITALS: BP 142/72
--- NOTE | 2020-05-31 08:04 | NUR ---
ARI SHI demonstrates understanding of discharge instructions and accurately returns instructions upon questioning. Copy of Post-Discharge Instructions given to . ARI SHI is able to manage continuing needs after discharge with home health,RN, PT et OT. pt is discharged with her son et to be staying at [facility] Patients belongings returned to . Patient discharged from 231-1 on at 0813. ARI SHI left floor via , accompanied by .
--- NOTE | 2020-05-31 08:06 | NUR ---
patient is anxious regarding car ride for d/c. requesting valium. son at bedside.
[2020-05-31] MEDS: DIAZEPAM 5 MG (VALIUM) TABLET PO PRN (08:07)
[2020-05-31 08:30] VITALS: BP 109/63
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
--- NOTE | 2020-05-31 08:46 | NUR ---
[facility], SALTY HERE. DENIES ANY FURTHER EDUCATION NEEDS OR TRAINING TO HELP CARE FOR PATIENT.ARI SHI demonstrates understanding of discharge instructions and accurately returns instructions upon questioning. Copy of Post-Discharge Instructions given to PATIENT. ARI SHI is NOT able to manage continuing needs after discharge. PATIENT WILL HAVE HHC, RN, PT, OT. Patients belongings returned to PATIENT. Patient discharged from [facility] [place] [facility] [place] on 05[place]31 at 0846. ARI SHI left floor via WC, accompanied by STAFF AND SON. REPORTS ANXIETY RELIEF FROM [facility] .
[2020-05-31] MEDS ORDERED: amLODIPine 10 MG (NORVASC) TAB PO SCH (09:00)
[2020-05-31] MEDS ORDERED: LORATADINE (CLARITIN) 10 MG TAB PO SCH (09:00)
--- NOTE | 2020-05-31 10:10 | NUR ---
CM/SS DISCHARGE Patient was discharged as planned, gone before typewriter mechanic arrival to hospital this a.m. Apparently family needed to change transport time from the 1100 plan. HHC: Finalized with [facility], faxed discharge instructions, orders, and clinical. DME: Family members were to pickling operator all arranged DME from [facility] [place].
== END 2020-05-31 08:46 | disposition home health service (06) | DRG 949 ==
PROVIDERS: ADMIT Internal Medicine; ATTEND Internal Medicine
DX: S06.5X9D Traumatic subdural hemorrhage with loss of consciousness of unspecified duration, subsequent encounter (principal); D62 Acute posthemorrhagic anemia; S06.6X9D Traumatic subarachnoid hemorrhage with loss of consciousness of unspecified duration, subsequent encounter; S32.019D Unspecified fracture of first lumbar vertebra, subsequent encounter for fracture with routine healing; S32.029D Unspecified fracture of second lumbar vertebra, subsequent encounter for fracture with routine healing; S32.039D Unspecified fracture of third lumbar vertebra, subsequent encounter for fracture with routine healing; S22.32XD Fracture of one rib, left side, subsequent encounter for fracture with routine healing; S92.001D Unspecified fracture of right calcaneus, subsequent encounter for fracture with routine healing; S82.401D Unspecified fracture of shaft of right fibula, subsequent encounter for closed fracture with routine healing; S62.617D Displaced fracture of proximal phalanx of left little finger, subsequent encounter for fracture with routine healing; S27.321D Contusion of lung, unilateral, subsequent encounter; S30.1XXD Contusion of abdominal wall, subsequent encounter; T85.49XD Other mechanical complication of breast prosthesis and implant, subsequent encounter; S31.134D Puncture wound of abdominal wall without foreign body, left lower quadrant without penetration into peritoneal cavity, subsequent encounter; N20.0 Calculus of kidney; J45.909 Unspecified asthma, uncomplicated; E78.00 Pure hypercholesterolemia, unspecified; I10 Essential (primary) hypertension; E11.40 Type 2 diabetes mellitus with diabetic neuropathy, unspecified; Z79.4 Long term (current) use of insulin; G25.81 Restless legs syndrome; K21.9 Gastro-esophageal reflux disease without esophagitis; M19.91 Primary osteoarthritis, unspecified site; M79.7 Fibromyalgia; M54.9 Dorsalgia, unspecified; E03.9 Hypothyroidism, unspecified; F41.9 Anxiety disorder, unspecified; F32.9 Major depressive disorder, single episode, unspecified; E66.01 Morbid (severe) obesity due to excess calories; Z68.37 Body mass index [BMI] 37.0-37.9, adult; E05.00 Thyrotoxicosis with diffuse goiter without thyrotoxic crisis or storm; R32 Unspecified urinary incontinence; G47.33 Obstructive sleep apnea (adult) (pediatric); K59.00 Constipation, unspecified; Z87.891 Personal history of nicotine dependence; V89.2XXD Person injured in unspecified motor-vehicle accident, traffic, subsequent encounter
CPT/HCPCS: 36415; 70450; 80053; 82565; 82962; 83540; 85025; 85027; 94640; 94760